=== PATIENT | female | born 1965 | race African-American/Black ===

== ENCOUNTER → 2020-03-20 12:55 | Outpatient (BNVA) | payer OTHER, SELFPAY | PROVIDERS: PCP Hospitalist; Referring Provider Hospitalist; Visit Provider Nurse Practitioner Family | DX: Z01.818 Encounter for other preprocedural examination (principal) | CPT/HCPCS: 99212 ==

== ENCOUNTER 2020-04-11 08:00 | Outpatient (RCR) | payer OTHER, SELFPAY ==
--- NOTE | 2020-03-06 15:22 | MHC.PT.EP ---
[facility] [place] Office [place] Office [place] Office [address] Michael Almonte [address] [phone] F: [phone] F: [phone] F: [phone] F: [phone] Physical Therapy Plan of Care Date of Evaluation: 03/06/20 Diagnosis: R Deltoid Strain Assessment: 54 y/o RHD female referred to PT with R deltoid strain. 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 Examination shows decreased R shoulder AROM/PROM, decreased R shoulder strength, increased tenderness to palpate r shoulder specially R supraspinatus and UT, and impaired postural awareness. S/s consistent with R shoulder impingement and ?RTC tear. Recommend PT 2x/week for 6 weeks to address impairments, implement HEP, and optimize functional mobility. POC to include R shoulder A/AA/PROM, STM/IASTM to R shoulder, ionto/TENS, scapular and RTC strengthening, and functional training. Frequency and Duration: The patient will be seen 2x/week for 6 weeks Short Term Goals: 3weeks: 1. Initiate HEP 2. Demonstrate R shoulder AROM: flexion 120 3. Demonstrate R shoulder apley ER to C4 Alf Goals: 6 weeks: 1. I with HEP and self management of sx 2. Pt will be able to perform grooming with B UE and pain < 3/10 3. Pt will be able to reach into overhead cabinet for dishware with pain < 3/19 Treatment Plan: Modalities to reduce pain, spasms and effusion. Manual therapy to restore motion and function. Therapeutic exercise to improve strength and flexibility. Neuromuscular re-education for posture and balance. Therapeutic activities to return to functional activities of daily living. Please sign and return to therapist. Thank you for your referral.
--- NOTE | 2020-03-26 11:59 | MHC.PT.OD ---
[facility] [place] Office [place] Office [place] Office [address] Michael Almonte [address] [phone] F: [phone] F: [phone] F: [phone] F: [phone] Physical Therapy Daily Note Diagnosis: Strain of right deltoid muscle, initial encounter. Notes: Would like eval for concern for right deltoid strain with no known cause would like eval of the shoulder and home exercise program as well. Date of script 02/08/2020 signed by Myesha Hernandez NP (Therapist concerned for presence of RTC tear) Date of Surgery: NA Date of Evaluation: 03/06/20 Treatments to Date: 5 Cancellations to Date: 0 No Shows to Date: 1 Authorized Visits: 12 Insurance End Date: 05/10/20 Precautions/ Contraindications:HTN, ?R RTC Tear Subjective: Use of OPI phone court interpreter #[id number] [place] Poor connection/communication w/ court interpreter line noted today. Pt expressed skin irritation with trial of taping last session, reports continued difficulty with elevation of R UE, (+) severe night pain in R shoulder, presence of posterior muscular neck pain. Pain Score: 7 Pain Location: R shoulder Objective Flowsheet: Tests & Measures FLEXIONAROM 70 (92 PROM) degrees ABDUCTION 60 (70 PROM) ER TO EAR (PROM 40), IR LA BUTTOCKS ( PROM 40) Exercises UBE reverse x 5min AAROM TABLE SLIDES SEATED X 10 SEC HOLD X 10R -AAROM TABLE SLIDES SCAPTION X 10 SEC HOLD X 5R- -AAROM HAND HELD ASSIST IN SUPINE X 10 SEC HOLD X 5R -PROM TO TOLERANCE R SHOULDER FLEXION -PENDULUMS X 4 MINUTES WITH CUES TO REDUCE ACTIVE SWINGING AND ENSURE MORE PASSIVE RELAXATION OF R SHOULDER DURING ACTIVITY -RIGHT UPPER TRAP STRETCH X 4R X 20 SEC HOLD -RIGHT LEVATOR SCAP STRETCH X 4R X 20 SEC HOLD SCAP RETRACTION WITH ARMS BY SIDE EDUCATION FOR USE OF PILLOW UNDER ARM TO EASE SUPPORT FROM R SHOULDER WHILE SITTING OR SLEEPING ICE FOR PAIN MANAGEMENT x 10-20 MINUTES PRN WITH LAYERING TO PROTECT SKIN EDUCATION RE: ANATOMY OF SHOULDER MUSCULATURE, NECK, CONCERN FOR MUSCLE INVOLVEMENT IN R UE WORSE WITH MOVEMENT CONCERN FOR MUSCLE INVOLVEMENT -STM TO RIGHT UPPER TRAP WHILE SEATED, NOTD TENDERNESS DISTAL SUPRASPINATUS, SUBSCAPULARIS, ANTERIOR GH, LATERAL SHOULDER/DELTOID REGION, PROXIMAL R CERVICAL SPINE Educated pt regarding use of ice for home x 10-15 minutes prn for pain relief. Modalities Assessment: 54 y/o RHD female referred to PT with diagnosis of R deltoid strain. 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 Examination shows decreased R shoulder AROM/PROM, decreased R shoulder strength, increased tenderness to palpate R shoulder specially R supraspinatus and UT. Impaired postural awareness. Pt has attended 5 sesision of PT thus far and has been instructed in gentle AAROM program with limited gaints. Concern for RTC tear is present. Pt has been educated to trial icing of R shoulder in effort to ease sx. She may benefit from referral to orthopedic and or MRI to assess potential for RTC pathology. POC to include R shoulder A/AA/PROM, STM/IASTM to R shoulder, scapular and RTC strengthening, and functional training. Pt is unable to lift her arm and has poor tolerance for PROM. Therapist is recommending pt continued therapy for 1-2 more weeks to address listed POC however pt has been educated re: findings of evaluation and concern for further assessment. She reports as of now her next scheduled follow up is in four months time. PT Plan: R shoulder AAROM>AROM, scapular and RTC strengthening, pain management No tape (+) skin irritation following first trial of use. Pt verbalized understanding of recommendation to trial low reps (no more than 5) 2-3x/daily for gentle aarom exercises trialed in clinic today (including table slides and supine aarom flexion). She was advised to hold therex if sharp or worsening symptoms were experienced. She was educated to refrain from heavy lifting with her arm and aide in elevation with aide of left extremity. She was encouraged to use ice prn 10-20 minutes to aide in sx relief. Discharge Today? Short Term Goals: 3weeks: 1. Initiate HEP (started) 2. Demonstrate R shoulder AROM: flexion 120 3. Follow up with referring provider due to concern for severe night pain, limited gains thus far in therapy (? ortho referral and or MRI) 3. 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 I with HEP and self management of sx 2. Pt will be able to perform grooming with B UE and pain < 3/10 3. Pt will be able to reach into overhead cabinet for dishware with pain < 3/19 Electronically signed by: Esther Weinstein, PT, DPT
== END 2020-06-07 09:52 | disposition other institution (70) ==
LOC: HO.PTWFD 08:00
PROVIDERS: Visit Provider Hospitalist
DX: S46.811D Strain of other muscles, fascia and tendons at shoulder and upper arm level, right arm, subsequent encounter (principal)
CPT/HCPCS: 97035; 97110; 97140; 97161; 97530

== ENCOUNTER 2020-05-31 09:42 | Day surgery (SDC) | payer OTHER, SELFPAY ==
--- NOTE | 2020-05-30 09:16 | HO.ANESPROP2 ---
Documented by User: Michelle Merrill 05/30/20 09:23 HPI - Anesthesia Eval Consult details Narrative: 54yo F for Colonoscopy PMFSH Past Medical History Medical History GERD (gastroesophageal reflux disease) HTN (hypertension) Family History Family History Father No problems noted. Father Cancer AD (Alzheimer's disease) Mother Breast cancer High blood pressure Maternal Aunt Stomach cancer Surgical History Surgical History History of hip replacement History of knee replacement Total knee replacement status Social History Social History Household Members: Children Alcohol intake: current Alcohol intake frequency: does not drink Smoking Status: Never smoker Use of substances other than those prescribed or required for medical reasons: No Advance Directives: Yes Advance Directives on File: Yes Advance Directives Date on File: 02/24/20 Meds Allergies Allergy/AdvReac Type Severity Reaction Status Date / Time No Known Allergies Allergy Verified 05/31/20 10:25 Home Medications Medication Instructions Recorded Confirmed Type acetaminophen 500 mg tablet 500 mg PO Q6H PRN 03/07/20 History clonidine HCl 0.1 mg tablet 0.1 mg PO BEDTIME 03/07/20 History lisinopril 20 1 tab PO DAILY 03/07/20 History mg-hydrochlorothiazide 25 mg tablet metoprolol tartrate 50 mg tablet 50 mg PO BID 03/07/20 History naproxen 500 mg tablet 500 mg PO BID 03/07/20 History Exam Exam Date and Time: May 30, 2020 0916 Pertinent Lab Results Pertinent Lab Results: Laboratory Tests 01/18/20 01/18/20 07:35 07:35 WBC 6.8 Hgb 11.8 L Hct 37.1 Plt Count 428 H Sodium 140 Potassium 4.5 Chloride 102 BUN 16 Creatinine 0.88 Assessment and Plan Assessment Anesthesia Assessment: Chart Reviewed Documented by User: Crystal Martinez 05/31/20 10:33 PMFSH Past Medical History Medical History GERD (gastroesophageal reflux disease) HTN (hypertension) Family History Family History Father No problems noted. Father Cancer AD (Alzheimer's disease) Mother Breast cancer High blood pressure Maternal Aunt Stomach cancer Family history of problems with anesthesia: No Surgical History Surgical History History of hip replacement History of knee replacement Total knee replacement status History of Problems with Anesthesia: No Social History Social History Household Members: Children Alcohol intake: current Alcohol intake frequency: does not drink Smoking Status: Never smoker Use of substances other than those prescribed or required for medical reasons: No Advance Directives: Yes Advance Directives on File: Yes Advance Directives Date on File: 02/24/20 Meds Allergies Allergy/AdvReac Type Severity Reaction Status Date / Time No Known Allergies Allergy Verified 05/31/20 10:25 Home Medications Medication Instructions Recorded Confirmed Type acetaminophen 500 mg tablet 500 mg PO Q6H PRN 03/07/20 History clonidine HCl 0.1 mg tablet 0.1 mg PO BEDTIME 03/07/20 History lisinopril 20 1 tab PO DAILY 03/07/20 History mg-hydrochlorothiazide 25 mg tablet metoprolol tartrate 50 mg tablet 50 mg PO BID 03/07/20 History naproxen 500 mg tablet 500 mg PO BID 03/07/20 History Exam Airway Mallampati Class: II TM Dist: >3cm Neck ROM: Full Heart: RRR Lungs: CTAB Assessment and Plan Assessment Anesthesia Assessment: Anesthesia Plan Discussed and Chart Reviewed Final Anesthetic Review NPO: Yes ASA Class: II Final Preanesthetic Review: No Changes in Pt Med Stat, Meds/Allgs Chart Reviewed, Consent Obtained/Reviewed and Anes Risks/Benef Reviewed Patient Risk: Low Procedure Risk: Low Anesthetic Plan Anesthetic Plan: MAC: Disposition: Standard PACU
[2020-05-31 10:26] VITALS: BP 132/72; PULSE 57; RESP 16; TEMP 36.2; O2SAT 99; BMI 32.2
--- NOTE | 2020-05-31 10:45 | MHC.SHP ---
Pre-Procedural Eval Section B Chief Complaint: screening Relevant Family History (Specify if Yes): No Relevant Social History: None Present Medications: see Short Stay Collaborative assessment Medical History: Significant History (GERD (gastroesophageal reflux disease) HTN (hypertension)) History of Previous Operations: Relevant previous surgery/procedure and date(s) (hip and knee replacement) Allergies: Allergies Allergy/AdvReac Type Severity Reaction Status Date / Time No Known Allergies Allergy Verified 05/31/20 10:25 Review of Systems Sugical H&P ROS: Negative: Constitution, Cardiovascular, Respiratory, Neurological, Psychiatric, Hem-Onc, Allergic/Immunologic, Gastrointestinal, Genitourinary, Musculoskeletal, Integumentary, Endocrine and Eyes/Ears/Nose/Throat Exam Surgical H&P Exam: Normal: HEENT, Normal: Heart, Normal: Lungs, Normal: Extremities, Normal: Abdomen, Normal: Skin and Normal: Neurological Plan Diagnosis/Plan: Unchanged I have reviewed the history and physical and performed a pertinent physical examination on my patient. No changes have occurred unless specified.
--- NOTE | 2020-05-31 10:46 | P.OP_ITS ---
Operative Note Operative Note Date of Service: 05/31/20 Narrative: Operative Information Procedure Description: Colonoscopy COLONOSCOPY Instrument: Olympus variable stiffness pediatric scope 190L Colonoscopy Monitoring: Vital signs and clinical assessment, continuous EKG monitoring, Pulse oximetry, Carbon Dioxide monitoring and blood pressure monitoring were done throughout the procedure. Colon withdrawal time was 9 minutes. Procedure: The patient was placed in the left lateral decubitis position and pre-procedure medications were administered. After a digital rectal examination of the ano-rectum, the video colonoscope was inserted into the rectum and advanced through the colon to the cecum/TI. The colonoscope was slowly withdrawn in a retrograde panoramic fashion and the colon mucosa was carefully examined including a retroflexed view of the rectum. Findings and interventions are described below. Procedure Difficulty:easy Findings: Terminal Ileum-normal Cecum:normal Ascending Colon: normal Transverse Colon -normal Descending Colon:normal Sigmoid Colon: mild to moderate diverticulosis Rectum: Retroflexion with small internal hemorrhoids, grade I, 9-10 mm sessile polyp removed with cold snare Anorectum - normal Colon preparation: [place] Bowel Preparation Scale Right colon; 3 Transverse colon: 3 Left colon; 3 (0 = Unprepared colon segment with mucosa not seen due to solid stool that cannot be cleared. 1 = Portion of mucosa of the colon segment seen, but other areas of the colon segment not well seen due to staining, residual stool and/or opaque liquid. 2 = Minor amount of residual staining, small fragments of stool and/or opaque liquid, but mucosa of colon segment seen well. 3 = Entire mucosa of colon segment seen well with no residual staining, small fragments of stool or opaque liquid) Impression and Post Procedure Diagnosis: polyp internal hemorrhoids diverticular disease Plan: High fiber diet leaflet Avoid straining at stool, epsom salts and sitz bath, anusol supps or cream prn Repeat Colonoscopy in 5 years if adenoma, 10 yrs if hyperplastic or earlier if clinically indicated Above findings were reviewed with the patient and relevant handouts were provided if indicated.
--- NOTE | 2020-05-31 10:46 | PM.OP ---
Brief Operative Note Date of Service: 05/31/20 Post-op diagnosis: same Procedure: see op note Surgeon: Wilfredo Chambers MD Anesthesia: MAC Estimated blood loss (mL): 0 Condition: stable Disposition: PACU
[2020-05-31] MEDS: Lactated Ringers 1,000 ML 100 ML IVCONT (10:47)
[2020-05-31 11:30] VITALS: BP 97/61; PULSE 78; RESP 16; TEMP 36.1; O2SAT 99
[2020-05-31 11:45] VITALS: BP 124/74; PULSE 53; RESP 17; TEMP 36.2; O2SAT 100
--- NOTE | 2020-05-31 12:13 | HO.POSTANES ---
Post Anesthesia Evaluation Post Anesthesia Evaluation Vital Signs: Vital Signs Temp Pulse Resp BP Pulse Ox 05/31/20 11:45 97.2 F 53 17 124/74 100 05/31/20 11:30 97.0 F 78 16 97/61 99 05/31/20 10:26 97.1 F 57 16 132/72 99 Anesthesia: General (tiva) Mental Status: Awake Pain Control: Satisfactory Nausea/Vomiting: None Hydration: Adequate Anesthesia-Related Issues: No Anes. Related Issues
== END 2020-05-31 12:20 | disposition home or self-care (01) ==
PROVIDERS: PCP Hospitalist; Visit Provider Internal Medicine Gastroenterology
PROC: 0DJD8ZZ Inspection of Lower Intestinal Tract, Via Natural or Artificial Opening Endoscopic (ICD-10-PCS; CPT 45378; principal; 2020-05-31 10:50)
DX: Z12.11 Encounter for screening for malignant neoplasm of colon (principal); K62.1 Rectal polyp; K57.30 Diverticulosis of large intestine without perforation or abscess without bleeding; K64.0 First degree hemorrhoids; K21.9 Gastro-esophageal reflux disease without esophagitis; I10 Essential (primary) hypertension; Z79.899 Other long term (current) drug therapy; Z80.3 Family history of malignant neoplasm of breast; Z96.651 Presence of right artificial knee joint; Z96.649 Presence of unspecified artificial hip joint
CPT/HCPCS: 45385; 88305

== ENCOUNTER 2020-06-12 12:54 | Outpatient (REF) | payer OTHER, SELFPAY ==
--- NOTE | 2020-06-12 | MM_ITS ---
EXAMINATION: MM SCREENING DIGITAL BREAST TOMOSYNTHESIS, BILATERAL CLINICAL INFORMATION: Screening. Asymptomatic. The lifetime risk of breast cancer based on the Tyrer-Cuzick Model is 18.7%. COMPARISON: Mammography: None TECHNIQUE: Digital breast tomosynthesis is performed in both the craniocaudal and mediolateral oblique views along with computer-aided detection (CAD). Synthesized 2D images are generated from the tomosynthesis. Additional right exaggerated craniocaudal view performed. FINDINGS: The breasts are almost entirely fatty (ACR BI-RADS breast composition Category a). There are no significant masses, abnormal calcifications, or other abnormalities. MM/MM tomosynthesis screening BI IMPRESSION: There are no significant changes from prior study. ASSESSMENT: BI-RADS 1: Negative RECOMMENDATION: Routine annual mammography screening. This patient's information was entered into a reminder system with a target due date for their next mammogram.
== END 2020-06-12 12:55 | disposition home or self-care (01) ==
LOC: HO.MAMMO 12:54
PROVIDERS: PCP Hospitalist; Visit Provider Hospitalist
DX: Z12.31 Encounter for screening mammogram for malignant neoplasm of breast (principal)
CPT/HCPCS: 77063; 77067

== ENCOUNTER → 2020-06-22 13:46 | Outpatient (BNVA) | payer OTHER, SELFPAY | PROVIDERS: PCP Hospitalist; Referring Provider Hospitalist; Visit Provider Nurse Practitioner Family ==

== ENCOUNTER 2020-08-01 11:34 | Outpatient (REF) | payer OTHER, SELFPAY ==
[2020-08-01 13:30] LABS: Hematocrit 39.6 % (37-47); Hemoglobin 12.9 g/dl (12.0-16.0); Mean Corpuscular HGB Conc 32.6 g/dl (31.0-35.0); Mean Corpuscular Volume 76.7 fL (80-98); Mean Platelet Volume 10.8 fL (9.4-12.3); Platelet Count 348 X10*3/uL (160-400); Red Blood Count 5.16 X10*6/uL (4.20-5.50); Red Cell Distribution Width 16.2 % (11.0-16.0); White Blood Count 7.2 X10*3/uL (4.8-10.8)
[2020-08-01 14:03] LABS: Alanine Aminotransferase 16 U/L (0-31); Albumin Level 4.1 g/dL (3.5-5.0); Alkaline Phosphatase 91 U/L (39-117); Anion Gap 14 (12-20); Aspartate Amino Transferase 17 U/L (5-31); Bilirubin Total 0.3 mg/dL (0.0-1.0); Blood Urea Nitrogen 21 mg/dL (9-16); Calcium 9.7 mg/dL (8.4-10.2); Carbon Dioxide 28 mmol/L (22-29); Chloride 101 mmol/L (96-108); Estimated Glomerular Filt Rate > 60; Glucose Random 91 mg/dL (60-115); Sodium 139 mmol/L (135-145); Total Protein 8.2 g/dL (6.5-8.0)
== END 2020-08-01 11:35 | disposition home or self-care (01) ==
LOC: HO.WFDLDS 11:34
PROVIDERS: Visit Provider Nurse Practitioner Family
DX: Z12.11 Encounter for screening for malignant neoplasm of colon (principal)
CPT/HCPCS: 36415; 80053; 85027

== ENCOUNTER 2021-02-19 08:12 | Outpatient (REF) | payer OTHER, SELFPAY ==
[2021-02-19 11:45] LABS: Anion Gap 12 (12-20); Blood Urea Nitrogen 13 mg/dL (9-16); Calcium 9.6 mg/dL (8.4-10.2); Carbon Dioxide 28 mmol/L (22-29); Chloride 104 mmol/L (96-108); Estimated Glomerular Filt Rate 55; Glucose Random 144 mg/dL (60-115); Potassium 3.6 mmol/L (3.3-5.1); Sodium 140 mmol/L (135-145)
== END 2021-02-19 08:13 | disposition home or self-care (01) ==
LOC: HO.WFDLDS 08:12
PROVIDERS: Visit Provider Hospitalist
DX: M54.40 Lumbago with sciatica, unspecified side (principal)
CPT/HCPCS: 36415; 80048

== ENCOUNTER 2021-07-09 15:37 | Outpatient (REF) | payer OTHER, SELFPAY ==
--- NOTE | ~2021-07-09 | MM_ITS ---
EXAMINATION: MM SCREENING DIGITAL BREAST TOMOSYNTHESIS, BILATERAL CLINICAL INFORMATION: Screening. Asymptomatic. The lifetime risk of breast cancer based on the Tyrer-Cuzick Model is 10%. COMPARISON: Mammography: 11/09/2020 (new baseline). TECHNIQUE: Digital breast tomosynthesis is performed in both the craniocaudal and mediolateral oblique views along with computer-aided detection (CAD). Synthesized 2D images are generated from the tomosynthesis. Additional left MLO view is provided. FINDINGS: The breasts are almost entirely fatty (ACR BI-RADS breast composition Category a). There are no significant masses, abnormal calcifications, or other abnormalities. Background stromal markings are similar to prior exam. No developing density or architectural abnormality. The axilla and skin contours are unremarkable. No significant changes. MM/MM tomosynthesis screening BI IMPRESSION: No mammographic evidence of malignancy. ASSESSMENT: BI-RADS 1: Negative RECOMMENDATION: Routine annual mammography screening. This patient's information was entered into a reminder system with a target due date for their next mammogram.
== END 2021-07-09 15:38 | disposition home or self-care (01) ==
LOC: HO.MAMMO 15:37
PROVIDERS: PCP Hospitalist; Visit Provider Hospitalist
DX: Z12.31 Encounter for screening mammogram for malignant neoplasm of breast (principal)
CPT/HCPCS: 77063; 77067

== ENCOUNTER 2021-10-01 10:43 | Outpatient (REF) | payer OTHER, SELFPAY ==
[2021-10-01 13:37] LABS: Anion Gap 14 (12-20); Blood Urea Nitrogen 20 mg/dL (9-16); Carbon Dioxide 26 mmol/L (22-29); Chloride 103 mmol/L (96-108); Estimated Glomerular Filt Rate > 60; Glucose Random 97 mg/dL (60-115); Potassium 3.8 mmol/L (3.3-5.1); Sodium 139 mmol/L (135-145)
== END 2021-10-01 10:44 | disposition home or self-care (01) ==
LOC: HO.WFDLDS 10:43
PROVIDERS: Visit Provider Hospitalist
DX: M54.40 Lumbago with sciatica, unspecified side (principal)
CPT/HCPCS: 36415; 80048

== ENCOUNTER 2021-12-10 10:00 | Outpatient (RCR) | payer OTHER, SELFPAY ==
[2021-12-06 08:46] VITALS: BP 122/80; PULSE 56; O2SAT 96
== END 2022-01-21 14:40 | disposition home or self-care (01) ==
LOC: HO.PTWFD 10:00
PROVIDERS: Visit Provider Hospitalist
DX: R42 Dizziness and giddiness (principal)
CPT/HCPCS: 95992; 97161; 97535

== ENCOUNTER 2022-09-30 10:09 | Outpatient (REF) | payer OTHER, SELFPAY ==
--- NOTE | ~2022-09-30 | MM_ITS ---
EXAMINATION: MM SCREENING DIGITAL BREAST TOMOSYNTHESIS, BILATERAL CLINICAL INFORMATION: Screening. Asymptomatic. The lifetime risk of breast cancer based on the Tyrer-Cuzick Model is 12%. COMPARISON: Mammography: 07/09/2021, 06/12/2020 (new baseline) TECHNIQUE: Digital breast tomosynthesis is performed in both the craniocaudal and mediolateral oblique views along with computer-aided detection (CAD). Synthesized 2D images are generated from the tomosynthesis. FINDINGS: The breasts are almost entirely fatty (ACR BI-RADS breast composition Category a). Background stromal markings are normal. No developing density or architectural abnormality. There are no significant masses, abnormal calcifications, or other abnormalities. The axilla and skin contours are unremarkable. MM/MM tomosynthesis screening BI IMPRESSION: No mammographic evidence of malignancy. ASSESSMENT: BI-RADS 1: Negative RECOMMENDATION: Routine annual mammography screening. This patient's information was entered into a reminder system with a target due date for their next mammogram.
== END 2022-09-30 10:10 | disposition home or self-care (01) ==
LOC: HO.MAMMO 10:09
PROVIDERS: PCP Hospitalist; Visit Provider Hospitalist
DX: Z12.31 Encounter for screening mammogram for malignant neoplasm of breast (principal)
CPT/HCPCS: 77063; 77067

== ENCOUNTER → 2022-10-01 09:53 | Outpatient (BNVA) | payer OTHER, SELFPAY | PROVIDERS: PCP Hospitalist; Visit Provider Neurological Surgery | DX: M53.3 Sacrococcygeal disorders, not elsewhere classified (principal) | CPT/HCPCS: 99202 ==

== ENCOUNTER → 2022-10-31 12:40 | Outpatient (BNVA) | payer OTHER, SELFPAY | PROVIDERS: PCP Hospitalist; Visit Provider Physician Assistant | DX: M53.3 Sacrococcygeal disorders, not elsewhere classified (principal) | CPT/HCPCS: 99212 ==

== ENCOUNTER 2023-01-05 08:21 | Day surgery (SDC) | payer OTHER, SELFPAY ==
--- NOTE | 2022-12-23 | ECG_ITS ---
Test Reason : htn Blood Pressure : / mmHG Vent. Rate : 052 BPM Atrial Rate : 052 BPM P-R Int : 180 ms QRS Dur : 090 ms QT Int : 454 ms P-R-T Axes : 056 015 051 degrees QTc Int : 422 ms Sinus bradycardia Otherwise normal ECG No previous ECGs available Referred By: Michelle Merrill Electronically Signed By:CLARISA CANO
[2022-12-23 12:17] VITALS: BP 143/79; PULSE 54; RESP 18; O2SAT 96; BMI 33.4
--- NOTE | 2022-12-23 12:39 | HO.ANESPROP2 ---
Documented by User: Michelle Merrill NP 12/24/22 13:52 HPI - Anesthesia Eval Consult details Narrative: 57yo F for Left Sacroiliac Joint Fusion, 01/05/23 No recent illness No CP/SOB with >4 mets GERD - well controlled on ppi PMFSH Active Problems Active Problems: All Active Problems (Updated 12/23/22 @ 12:12 by Clemencia Schuler RN) Strain of right deltoid muscle (Acute) GERD without esophagitis (Acute) Osteoarthritis (arthritis due to wear and tear of joints) (Acute) Hypertension, essential (Acute) Screen for colon cancer (Acute) Hypoglycemia (Acute) Anemia (Acute) Bilateral low back pain with sciatica (Acute) BMI 34.0-34.9,adult (Acute) Open wound of skin (Acute) History of COVID-19 (Acute) Sleep-wake 24 hour cycle disruption (Acute) Dizziness (Acute) Normal physical exam (Acute) Obesity (BMI 30.0-34.9) (Acute) SI (sacroiliac) joint dysfunction (Acute) Past Medical History Medical History (Updated 12/23/22 @ 12:12 by Clemencia Schuler RN) Anemia Depression GERD (gastroesophageal reflux disease) History of COVID-19 HTN (hypertension) Low back pain Obesity Osteoarthritis Family History Family History Father No problems noted. Father Cancer AD (Alzheimer's disease) Mother Breast cancer High blood pressure Maternal Aunt Stomach cancer Family history of problems with anesthesia: No Surgical History Surgical History (Updated 12/23/22 @ 12:09 by Clemencia Schuler RN) H/O colonoscopy History of hip replacement History of knee replacement Hx of section History of Problems with Anesthesia: No Social History Social History Household Members: Children and Other Housing: House (2ND FLOOR) Housing Other:: 2nd floor-2 family house Are you a primary director medicare sales to a significant other at home: No Do you presently have visiting nurse or other home services: No Alcohol intake: current Alcohol intake frequency: holidays/special occasions only Patient Tobacco Use Status: Never used Tobacco e-Cigarette/Vaping Use: Never Used Second Hand Smoke Exposure: No Use of substances other than those prescribed or required for medical reasons: No Have you been hit, kicked, punched, or otherwise hurt by someone within the past year? If so, by whom?: No Are you DNR?: No Advance Directives: Yes Advance Directives Information Provided: Yes Advance Directives on File: Yes Advance Directives Date on File: 02/24/20 Recently lost weight without trying: No Eating poorly because of decreased appetite: No Nutrition Risks: No Nutritional Risk FDLMP: N/A Poor oral hygiene: No (has one crown right side) service: No Current occupational status: disabled Current occupational exposures/hazards: No Cognitive needs: No Hearing needs: No Vision needs: No Meds Allergies Allergy/AdvReac Type Severity Reaction Status Date / Time No Known Allergies Allergy Verified 07/17/22 13:32 Home Medications Medication Instructions Recorded Confirmed Last Taken Type celecoxib 100 mg capsule (Celebrex) 100 mg PO BID PRN Pain 12/23/22 12/23/22 Unknown History gabapentin 600 mg tablet 600 mg PO BEDTIME 12/23/22 12/23/22 Unknown History ibuprofen 200 mg tablet 400 mg PO Q6H PRN Pain 12/23/22 12/23/22 Unknown History lisinopril 20 1 tab PO BEDTIME 12/23/22 12/23/22 Unknown History mg-hydrochlorothiazide 25 mg tablet Exam Exam Date and Time: December 23, 2022 1240 Height,Weight and Vital Signs: Height 5 ft Weight 77.564 kg Last Vital Signs Pulse 54 12/23/22 12:17 Resp 18 12/23/22 12:17 BP 143/79 H 12/23/22 12:17 Pulse Ox 96 12/23/22 12:17 O2 Del Method Room Air 12/23/22 12:17 Pertinent Lab Results Pertinent Lab Results: Lab Results 12/23/22 12/23/22 Range/Units 13:35 13:35 WBC 6.6 (4.8-10.8) X10*3/uL RBC 5.27 (4.20-5.50) X10*6/uL Hgb 14.1 (12.0-16.0) g/dl Hct 41.5 (37.0-47.0) % MCV 78.7 L (80.0-98.0) fL MCH 26.8 L (27.0-33.0) pg MCHC 34.0 (31.0-35.0) g/dl RDW 14.0 (11.0-16.0) % Plt Count 289 (160-400) X10*3/uL MPV 11.0 (9.4-12.3) fL Absolute Nucleated RBC 0.000 (0.0-0.012) X10*3/uL Nucleated RBC % (auto) 0.0 (0.0-0.2) /100WBC Sodium 141 (135-145) mmol/L Potassium 3.7 (3.3-5.1) mmol/L Chloride 105 (96-108) mmol/L Carbon Dioxide 26 (22-29) mmol/L Anion Gap 14 (12-20) BUN 14 (9-16) mg/dL Creatinine 1.04 (0.5-1.4) mg/dL Estim Creat Clear Calc 53.6 Estimated GFR 54 Random Glucose 98 (60-115) mg/dL Calcium 9.7 (8.4-10.2) mg/dL Narrative Narrative: EKG 12/2022 Vent. Rate : 052 BPM ? ? Atrial Rate : 052 BPM ?? P-R Int : 180 ms? QRS Dur : 090 ms ? ? QT Int : 454 ms ? ? ? P-R-T Axes : 056 015 051 degrees ?? QTc Int : 422 ms ? Sinus bradycardia Otherwise normal ECG No previous ECGs available Airway Mallampati Class: II TM Dist: >3cm Neck ROM: Full Loose/Missing/Broken Teeth: No (crowned molar) Heart: RRR Lungs: CTAB Assessment and Plan Assessment Anesthesia Assessment: Anesthesia Plan Discussed and PAT Visit Final Anesthetic Review Family History of Problems with Anesthesia: No History of Problems with Anesthesia: No Documented by User: Shahriar Ch MD 01/05/23 08:51 [facility] Past Medical History Medical History (Updated 12/23/22 @ 12:12 by Clemencia Schuler RN) Anemia Depression GERD (gastroesophageal reflux disease) History of COVID-19 HTN (hypertension) Low back pain Obesity Osteoarthritis Family History Family History Father No problems noted. Father Cancer AD (Alzheimer's disease) Mother Breast cancer High blood pressure Maternal Aunt Stomach cancer Surgical History Surgical History (Updated 12/23/22 @ 12:09 by Clemencia Schuler RN) H/O colonoscopy History of hip replacement History of knee replacement Hx of section Social History Social History Household Members: Children and Other Housing: House (2ND FLOOR) Housing Other:: 2nd floor-2 family house Are you a primary director medicare sales to a significant other at home: No Do you presently have visiting nurse or other home services: No Alcohol intake: current Alcohol intake frequency: holidays/special occasions only Patient Tobacco Use Status: Never used Tobacco e-Cigarette/Vaping Use: Never Used Second Hand Smoke Exposure: No Use of substances other than those prescribed or required for medical reasons: No Have you been hit, kicked, punched, or otherwise hurt by someone within the past year? If so, by whom?: No Are you DNR?: No Advance Directives: Yes Advance Directives Information Provided: Yes Advance Directives on File: Yes Advance Directives Date on File: 02/24/20 Recently lost weight without trying: No Eating poorly because of decreased appetite: No Nutrition Risks: No Nutritional Risk FDLMP: N/A Poor oral hygiene: No (has one crown right side) service: No Current occupational status: disabled Current occupational exposures/hazards: No Cognitive needs: No Hearing needs: No Vision needs: No Meds Allergies Allergy/AdvReac Type Severity Reaction Status Date / Time No Known Allergies Allergy Verified 07/17/22 13:32 Home Medications Medication Instructions Recorded Confirmed Last Taken Type celecoxib 100 mg capsule (Celebrex) 100 mg PO BID PRN Pain 12/23/22 12/23/22 Unknown History gabapentin 600 mg tablet 600 mg PO BEDTIME 12/23/22 12/23/22 Unknown History ibuprofen 200 mg tablet 400 mg PO Q6H PRN Pain 12/23/22 12/23/22 Unknown History lisinopril 20 1 tab PO BEDTIME 12/23/22 12/23/22 Unknown History mg-hydrochlorothiazide 25 mg tablet Assessment and Plan Final Anesthetic Review ASA Class: III Final Preanesthetic Review: No Changes in Pt Med Stat, Meds/Allgs Chart Reviewed, Consent Obtained/Reviewed and Anes Risks/Benef Reviewed Patient Risk: Intermediate Procedure Risk: Intermediate Anesthetic Plan Anesthetic Plan: GA and Agree w/ Assess. and Plan Disposition: Standard PACU
[2022-12-23 14:01] LABS: Hematocrit 41.5 % (37.0-47.0); Hemoglobin 14.1 g/dl (12.0-16.0); Mean Corpuscular Hemoglobin 26.8 pg (27.0-33.0); Mean Corpuscular Volume 78.7 fL (80.0-98.0); Platelet Count 289 X10*3/uL (160-400); Red Blood Count 5.27 X10*6/uL (4.20-5.50); White Blood Count 6.6 X10*3/uL (4.8-10.8)
[2022-12-23 14:27] LABS: Anion Gap 14 (12-20); Blood Urea Nitrogen 14 mg/dL (9-16); Calcium 9.7 mg/dL (8.4-10.2); Carbon Dioxide 26 mmol/L (22-29); Chloride 105 mmol/L (96-108); Creatinine Clr Calc Pharmacy 53.6; Estimated Glomerular Filt Rate 54; Glucose Random 98 mg/dL (60-115); Potassium 3.7 mmol/L (3.3-5.1); Sodium 141 mmol/L (135-145)
[2023-01-05] VITALS (8 sets, daily range): BP systolic 119–144; BP diastolic 67–84; PULSE 50–68; RESP 14–16; TEMP 36.1–36.2; O2SAT 95–100
--- NOTE | ~2023-01-05 | FL_ITS ---
EXAMINATION: XR FLUOROSCOPY WITH IMAGES CLINICAL INFORMATION: Sacroiliac joint effusion, left. COMPARISON: None available. TECHNIQUE: Fluoroscopy Supervised By: Dr. Sg Rene. Fluoroscopy Time: 4.8 minutes. Cumulative Dose: 58.1 mGy. DAP: 15.8 Gycm2. Images: 4. FINDINGS: AP views of the lower lumbar spine and are shown pelvis. Single lateral view of the sacrum. Question rectangular density projecting over the proximal anterior S2 vertebrae seen on the lateral view. There may be degenerative changes of the lower lumbar spine. There is a hip replacement. FL/FL guidance in OR IMPRESSION: Intraoperative fluoroscopy guidance.
--- NOTE | 2023-01-05 07:04 | MHC.SHP ---
Pre-Procedural Eval Section A Date of Service: 01/05/23 The patient is an INPATIENT: No Changes since office visit: No Cold of Flu in the past 2 weeks, No New Medical Problems, No Changes in Medication and No Patient answered all questions Section B Chief Complaint: Sacrococcygeal disorders, not elsewhere classified Allergies: Allergies Allergy/AdvReac Type Severity Reaction Status Date / Time No Known Allergies Allergy Verified 07/17/22 13:32 Review of Systems Sugical H&P ROS: Negative: Constitution, Cardiovascular, Respiratory, Neurological, Psychiatric, Hem-Onc, Allergic/Immunologic, Gastrointestinal, Genitourinary, Musculoskeletal, Integumentary, Endocrine and Eyes/Ears/Nose/Throat Exam Surgical H&P Exam: Not Evaluated: HEENT, Not Evaluated: Heart, Not Evaluated: Lungs, Not Evaluated: Extremities, Not Evaluated: Abdomen, Not Evaluated: Skin and Not Evaluated: Neurological Plan Diagnosis/Plan: Unchanged I have reviewed the history and physical and performed a pertinent physical examination on my patient. No changes have occurred unless specified. left SI joint fusion Time Spent With Patient Time: Total time managing care of this patient today _10___ minutes.
[2023-01-05] MEDS: methocarbamoL 750 MG TABLET PO (09:39)
[2023-01-05] MEDS: Gabapentin 300 MG CAPSULE PO (09:39)
[2023-01-05] MEDS: Lactated Ringers 1,000 ML 100 ML IVCONT (09:43)
--- NOTE | 2023-01-05 12:19 | P.DS_ITS ---
DS: Providers Provider Date of Service: 01/05/23 Date of discharge: 01/05/23 Primary care physician: Myesha Hernandez NP Admitting clinician: Sg Rene DS: Diagnosis Discharge Diagnosis (1) SI (sacroiliac) joint dysfunction: Status: Acute DS: Summary Time Spent with Patient Time attestation: Total time managing care of this patient today ____ minutes. Discharge coordination time: Less than 30 minutes Quality: Safe Use of Opioids Does Pt have an Active Cancer Diagnosis on the Problem List?: No Quality: Stroke Does the patient have a stroke diagnosis?: No Physical Exam Vital Signs: Vital Signs: Last Vital Signs Temp 97.2 F 01/05/23 09:31 Pulse 50 01/05/23 09:31 Resp 16 01/05/23 09:31 BP 144/84 H 01/05/23 09:31 Pulse Ox 98 01/05/23 09:31 O2 Del Method Room Air 01/05/23 09:31 BMI result Body Mass Index 33.4 Discharge Plan Discharge Patient Disposition: Home, Self-Care Referrals: Myesha Hernandez NP [Primary Care Provider] - 1 Week Discharge Medications: New oxycodone 5 mg tablet 5 mg PO Q8H PRN (Reason: pain) Qty: 20 0RF Rx Instructions: Partial Fill upon patient request. docusate sodium [Colace] 100 mg capsule 100 mg PO BID Qty: 20 0RF Continued (DME) blood pressure test kit-medium Kit See Rx Instructions .ROUTE .MEDSUPPLY Qty: 1 0RF Rx Instructions: As directed omeprazole 20 mg capsule,delayed release(DR/EC) 20 mg PO QAM Qty: 90 1RF metoprolol tartrate 50 mg tablet 50 mg PO BID Qty: 180 1RF clonidine HCl 0.1 mg tablet 0.1 mg PO BEDTIME Qty: 90 1RF gabapentin 600 mg tablet 600 mg PO BEDTIME Rx Instructions: take one in the afternoon or morning and then two at bedtime. celecoxib [Celebrex] 100 mg capsule 100 mg PO BID PRN (Reason: Pain) Rx Instructions: short term therapy ibuprofen 200 mg Tablet 400 mg PO Q6H PRN (Reason: Pain) lisinopril-hydrochlorothiazide 20-25 mg tablet 1 tab PO BEDTIME meclizine 25 mg tablet 25 mg PO TID PRN (Reason: dizziness) Qty: 90 1RF trazodone 50 mg tablet 100 mg PO BEDTIME Qty: 60 3RF Discontinued (DME) sacroiliac belt Kit See Rx Instructions .MEDSUPPLY Qty: 1 0RF Rx Instructions: As directed (DME) back brace Misc See Rx Instructions .Route Qty: 1 1RF Rx Instructions: As directed Discharge Orders: Discharge Order (Routine); Ordered 01/05/23 Ordered By: Juan Santiago Diet: Advance to usual diet Activity on Discharge: As tolerated Activity Restrictions/Additional Instructions: After your SI joint fusion surgery we ask you to observe the following restrict ions/guidelines: Activity: It is normal to feel some discomfort as you increase your activity, but that will improve with time. We ask you avoid heavy lifting or acitivities that cause pain. As a general rule, 8lbs is a safe limit for lifting right after surgery. We ask you to stay off your [] leg after surgery in order to help the SI joint fuse. Please use crutches or walker. You may return to driving when you are off narcotics (such as vicodin, oxycodone, dilaudid, etc), and you are back to normal functional capacity. If you have any concerns please check with office before driving. Return to work is specific to each patient and each surgery, so please speak with your doctor/PA at first follow up. Please bring paperwork such as FMLA at that time if you need it filled out. Follow up: Please call the office, , after surgery to arrange a 3 week follow up for wound check. Wound Care: Your wound was closed with glue, there are no sutures to remove. You may shower on post op day # 1. We ask that you do not let the water soak the wound. If it does get wet, just towel dry lightly. Please do not scrub your incision or place any type of chemical/ointment on the wound. No tub baths, pools or jacuzzis for one month. If you have any leaking or redness from your wound, or fevers, please call office Medications: It is best to use a combination of tylenol and motrin around the clock, and use small amounts of oxycodone as needed. We will give you a short supply of narcotics after surgery (usually one weeks worth). If you need more please call the office but do not use more than prescribed. You will need to give our office 48 hours notice if you need narcotics refilled and we do not fill narcotics on weekends or evenings. If you are on a narcotic, it is a good idea to take a stool softener such as colace or senna to avoid constipation If you take blood thinner such as aspirin, Plavix, Coumadin, Effient, Eliquis etc for conditions such as Afib, DVT, Pulmonary embolus, coronary disease, stents etc please speak with your surgeon about specific details as to when you can resume these medications. You can resume NSAIDs on post op day 1 (eg: Motrin, Naproxen, etc).
--- NOTE | 2023-01-05 12:25 | PM.DS ---
DS: Providers Provider Date of Service: 01/05/23 Primary care physician: Myesha Hernandez NP DS: Diagnosis Discharge Diagnosis (1) SI (sacroiliac) joint dysfunction: Status: Acute DS: Summary Time Spent with Patient Time attestation: Total time managing care of this patient today ____ minutes. Discharge coordination time: Less than 30 minutes Quality: Safe Use of Opioids Does Pt have an Active Cancer Diagnosis on the Problem List?: No Quality: Stroke Does the patient have a stroke diagnosis?: No Physical Exam Vital Signs: Vital Signs: Last Vital Signs Temp 97.2 F 01/05/23 09:31 Pulse 50 01/05/23 09:31 Resp 16 01/05/23 09:31 BP 144/84 H 01/05/23 09:31 Pulse Ox 98 01/05/23 09:31 O2 Del Method Room Air 01/05/23 09:31 BMI result Body Mass Index 33.4 Discharge Plan Discharge Patient Disposition: Home, Self-Care Referrals: Myesha Hernandez NP [Primary Care Provider] - 1 Week Discharge Medications: New oxycodone 5 mg tablet 5 mg PO Q8H PRN (Reason: pain) Qty: 20 0RF Rx Instructions: Partial Fill upon patient request. docusate sodium [Colace] 100 mg capsule 100 mg PO BID Qty: 20 0RF Continued (DME) blood pressure test kit-medium Kit See Rx Instructions .ROUTE .MEDSUPPLY Qty: 1 0RF Rx Instructions: As directed omeprazole 20 mg capsule,delayed release(DR/EC) 20 mg PO QAM Qty: 90 1RF metoprolol tartrate 50 mg tablet 50 mg PO BID Qty: 180 1RF clonidine HCl 0.1 mg tablet 0.1 mg PO BEDTIME Qty: 90 1RF gabapentin 600 mg tablet 600 mg PO BEDTIME Rx Instructions: take one in the afternoon or morning and then two at bedtime. celecoxib [Celebrex] 100 mg capsule 100 mg PO BID PRN (Reason: Pain) Rx Instructions: short term therapy ibuprofen 200 mg Tablet 400 mg PO Q6H PRN (Reason: Pain) lisinopril-hydrochlorothiazide 20-25 mg tablet 1 tab PO BEDTIME meclizine 25 mg tablet 25 mg PO TID PRN (Reason: dizziness) Qty: 90 1RF trazodone 50 mg tablet 100 mg PO BEDTIME Qty: 60 3RF Discontinued (DME) sacroiliac belt Kit See Rx Instructions .MEDSUPPLY Qty: 1 0RF Rx Instructions: As directed (DME) back brace Misc See Rx Instructions .Route Qty: 1 1RF Rx Instructions: As directed Discharge Orders: Discharge Order (Routine); Ordered 01/05/23 Ordered By: Juan Santiago Diet: Advance to usual diet Activity on Discharge: As tolerated Activity Restrictions/Additional Instructions: After your SI joint fusion surgery we ask you to observe the following restrictions/guidelines: Activity: It is normal to feel some discomfort as you increase your activity, but that will improve with time. We ask you avoid heavy lifting or acitivities that cause pain. As a general rule, 8lbs is a safe limit for lifting right after surgery. We ask you to stay off your [] leg after surgery in order to help the SI joint fuse. Please use crutches or walker. You may return to driving when you are off narcotics (such as vicodin, oxycodone, dilaudid, etc), and you are back to normal functional capacity. If you have any concerns please check with office before driving. Return to work is specific to each patient and each surgery, so please speak with your doctor/PA at first follow up. Please bring paperwork such as FMLA at that time if you need it filled out. Follow up: Please call the office, , after surgery to arrange a 3 week follow up for wound check. Wound Care: Your wound was closed with glue, there are no sutures to remove. You may shower on post op day # 1. We ask that you do not let the water soak the wound. If it does get wet, just towel dry lightly. Please do not scrub your incision or place any type of chemical/ointment on the wound. No tub baths, pools or jacuzzis for one month. If you have any leaking or redness from your wound, or fevers, please call office Medications: It is best to use a combination of tylenol and motrin around the clock, and use small amounts of oxycodone as needed. We will give you a short supply of narcotics after surgery (usually one weeks worth). If you need more please call the office but do not use more than prescribed. You will need to give our office 48 hours notice if you need narcotics refilled and we do not fill narcotics on weekends or evenings. If you are on a narcotic, it is a good idea to take a stool softener such as colace or senna to avoid constipation If you take blood thinner such as aspirin, Plavix, Coumadin, Effient, Eliquis etc for conditions such as Afib, DVT, Pulmonary embolus, coronary disease, stents etc please speak with your surgeon about specific details as to when you can resume these medications. You can resume NSAIDs on post op day 1 (eg: Motrin, Naproxen, etc).
--- NOTE | 2023-01-05 12:33 | W.PM.OPN ---
Operative Note Operative Note Date of Service: 01/05/23 Narrative: Preoperative diagnosis: left sacroiliac joint dysfunction Postoperative diagnosis: Same Operative procedure: left sacroiliac joint fusion with 1 allograft implant Surgeon: Sg Rene MD, PhD Community Outreach Coordinator: Juan Santiago PA-C Anesthesia: General Description of procedure: The patient is suffering from left SI joint dysfunction refractory to nonoperative management. The patient has tried and failed all forms of conservative manage med except for an excellent short-term response to a sacroiliac joint injection. The sacroiliac joint was confirmed to be the pain generator after repeated pain blocks. The patient was offered surgical treatment with fixation and arthrodesis of the SI joint. The patient was brought to the operating room and endotracheally intubated. The patient was turned in a prone position on Erich spine table. Prepping and draping was done followed by a time-out. A C-arm was alternately positioned for lateral, oblique oblique and pelvic inlet and outlet projections througout the procedure. Skin markings were made for the anticipated position of the implant. A 2.5 cm longitudinal skin incision was made. A guide pin was inserted in an outlet oblique image for guidance follow-up insertion of dilator and working cannula. This was secured by placing an anchor pin into the ilium. Consideration was taken to cut channels utilizing a series of drills for decortication and internal fixation device placement. The implant was inserted such that it passed through the ilium, across the sacroiliac joint and into the sacrum, thus transfixing the sacroiliac joint. Proper positioning was confirmed on lateral fluoroscopy. The implant was packed with of the longus bone collected from remain of the sacrum and ilium. Additional graft material was inserted into the channel void following the implant. The instruments were withdrawn. Upon completion, final images were obtained that showed a satisfactory position of the implant. Hemostasis was done. The incision was closed with an 0 Vicryl to fashion a 3-0 Vicryl subdermal layer after injecting Marcaine. Dermabond was used to approximate the surgeon. All sponge and needle counts were correct. Patient was extubated and transported in a stable condition to recovery room. This procedure was done with the aid of a physician registered dental assistant who assisted in the interpretation of the multiple x-rays done during the procedure and closure of the incision. Estimated blood loss: 15 mL Complications: None Disposition: Discharge to home
[2023-01-05] MEDS: ondansetron HCL 4 MG/2 ML VIAL IVPUSH (13:19)
== END 2023-01-05 14:40 | disposition home or self-care (01) ==
PROVIDERS: Nurse Practitioner; PCP Hospitalist; Visit Provider Neurological Surgery
PROC: (CPT 27279; principal; 2023-01-05 10:40)
DX: M53.3 Sacrococcygeal disorders, not elsewhere classified (principal); M54.50 Low back pain, unspecified; D64.9 Anemia, unspecified; I10 Essential (primary) hypertension; F32.A Depression, unspecified; M19.90 Unspecified osteoarthritis, unspecified site; K21.9 Gastro-esophageal reflux disease without esophagitis; E66.9 Obesity, unspecified; Z68.34 Body mass index [BMI] 34.0-34.9, adult; Z79.1 Long term (current) use of non-steroidal anti-inflammatories (NSAID); Z79.899 Other long term (current) drug therapy; Z96.653 Presence of artificial knee joint, bilateral; Z96.641 Presence of right artificial hip joint; Z86.16 Personal history of COVID-19
CPT/HCPCS: 27279; 36415; 80048; 85027; 93005; C1713; J0131; J0690; J1100; J1885; J2250; J2371; J2405; J3010; L8699

== ENCOUNTER → 2023-01-05 08:21 | Outpatient (BNV) | payer OTHER, SELFPAY | PROVIDERS: PCP Hospitalist; Visit Provider Physician Assistant | DX: M53.3 Sacrococcygeal disorders, not elsewhere classified (principal) | CPT/HCPCS: 20930; 22558; 22612; 22840; 22853; 27279; 63056 ==

== ENCOUNTER 2023-01-27 12:47 | Outpatient (AMB) | payer OTHER, SELFPAY ==
--- NOTE | 2023-01-27 13:01 | A.SPINEOV_ITS ---
Intake Intake Visit Reasons: 1st post op Intake Note: Mrs. Palma Nichols is here today for her 1st post-op visit. Nuclear Medicine Specialist Required: No Allergies No Known Allergies Allergy (Verified 07/17/22 13:32) Assessment & Plan Assessment & Plan (1) S/P fusion of sacroiliac joint: Code(s): Z98.1 - Arthrodesis status Plan Ledy is a 57-year-old female who comes in today for 1st postoperative visit. She is s/p left SI joint fusion on 01/05/23. She states that overall she is doing well and she is happy with her surgery. She reports that she has no pain when sitting down/laying down is able to sleep well at night. She also reports that she has been able to accomplish a large majority for ADLs, including cooking, cleaning, and doing laundry. She does state that she has been attempting to ambulate on her own but usually can only walk for about 15 minutes until she feels like she has significant hip/low back pain which causes her to sit back down to obtain relief. She has been ambulating with the use a walker, but states she would like to be in using a cane. She reports good relief of her pain with ibuprofen, but states she has not been utilizing Tylenol. She was strongly encouraged to begin using Tylenol 3 times daily at 500 mg each dose, in order to build up pain control. She was encouraged to use the ibuprofen more sparingly so as to avoid a GI bleed or ulcer. On exam the patient is able to rise from a seated position with the aid of her walker and is able to walk fairly well although does balance herself with a walker walking. She has full sensation throughout her upper and lower extremities, but does endorse some left-sided numbness/weakness in the bottom of her foot which she states she had since she was preoperative. Her incision site on the posterior left side is well healed, clean, dry, without drainage. At this time would like Ledy to follow up with our office 6 weeks and obtain a set of pelvic x-rays prior to her 2nd postoperative visit so that we can review the x-rays and instrumentation. Jose Rene MD,PhD [facility] Orders: Orders XR pelvis min 3V 10/03/23 Z98.1 - Arthrodesis status Coding Level of Care Code Global (74542) Diagnoses S/P fusion of sacroiliac joint Z98.1
== END 2023-01-27 13:15 | disposition home or self-care (01) ==
PROVIDERS: PCP Hospitalist; Visit Provider Physician Assistant
DX: Z98.1 Arthrodesis status (principal)
CPT/HCPCS: 99024

== ENCOUNTER → 2023-01-27 12:47 | Outpatient (BNVA) | payer OTHER, SELFPAY | PROVIDERS: PCP Hospitalist; Visit Provider Physician Assistant ==

== ENCOUNTER 2023-02-10 10:26 | Outpatient (REF) | payer OTHER, SELFPAY | END 2023-02-10 10:27 | disposition home or self-care (01) | LOC: HO.HOSX 10:26 | PROVIDERS: Visit Provider Physician Assistant | DX: Z13.89 Encounter for screening for other disorder (principal) ==

== ENCOUNTER 2023-03-11 11:45 | Outpatient (REF) | payer OTHER, SELFPAY ==
--- NOTE | ~2023-03-11 | XR_ITS ---
EXAMINATION: XR PELVIS CLINICAL INFORMATION: Arthrodesis status COMPARISON: None available. TECHNIQUE: AP view of the pelvis. FINDINGS: The patient is status post right total hip replacement. No fracture. Alignment is anatomic. Lucency inferior to the inferior aspect of the acetabular component is of doubtful clinical significance. Comparison to prior radiographs is suggested. There is mild degenerative change of the sacroiliac joints with 2.1 x 1.5 cm sclerotic focus along the sacral side of the left sacroiliac joint. The pubic symphysis are normal. The calcifications in the pelvis which include vascular and probable small phleboliths. There are degenerative changes in the lower lumbar spine. XR/XR pelvis 1-2V IMPRESSION: 1. Status post right total hip replacement without evidence of fracture. 2. Lucency inferior to the inferior aspect of the acetabular component is noted. Comparison to prior radiographs is suggested. 3. 2.1 x 1.5 cm sclerotic focus along the sacral side of the left sacroiliac joint. Comparison to prior radiographs is suggested.
== END 2023-03-11 11:46 | disposition home or self-care (01) ==
LOC: HO.HOSX 11:45
PROVIDERS: Visit Provider Physician Assistant
DX: M54.50 Low back pain, unspecified (principal); Z98.1 Arthrodesis status
CPT/HCPCS: 72170

== ENCOUNTER 2023-03-11 12:41 | Outpatient (AMB) | payer OTHER, SELFPAY ==
--- NOTE | 2023-03-11 13:03 | A.SPINEOV_ITS ---
Intake Intake Visit Reasons: 2nd post op with xrays Intake Note: Ms. Palma Nichols is here today for her 2nd post-op. Neuropsychiatric Aide Required: Yes Allergies No Known Allergies Allergy (Verified 07/17/22 13:32) Assessment & Plan Assessment & Plan (1) Low back pain: Code(s): M54.50 - Low back pain, unspecified Plan Procedure: Left SI joint fusion Ledy comes in today for her 2nd postoperative visit. She reports she is very satisfied with the surgery and states that her left leg / hip feels much better than it did pre-operatively. She reports she is up walking around and completing the majority of her ADLs. She does not have trouble lifting up her left leg or getting out of car any longer. Unfortunately, she reports that she has now developed significant low back pain, which she has been utilizing ibuprofen/ Tylenol to help mitigate. When describing her pain she points directly to her mid-lumbar spine. She reports that this low back pain has been interfering with her ability to complete some of her household tasks. She is not sure if she has always had this back pain or if it has become more prominent after her left leg and hip pain was resolved with her fusion surgery. No neurological deficits. Mobility is intact. Sensation grossly intact. Patient is able to ambulate well, rises from a seated position without difficulty. Incision site is closed, well healed. As Ledy's initial complaint that caused her to seek neurosurgical intervention has subsided, she will be discharge as a patient from our office. She was informed she may follow-up in the future at her discretion if she feels she needs re-evaluation. However, I would like to refer her to Pain Management for workup of potential interventions that could help her with her chronic low back pain, that seems to be noticeable now that her left leg pain is under control. Jose Rene MD,PhD [facility] Orders: Referrals Pain Management Referral M54.50 - Low back pain, unspecified Coding Level of Care Code Global (07566) Diagnoses Low back pain M54.50
== END 2023-03-11 13:24 | disposition home or self-care (01) ==
PROVIDERS: PCP Hospitalist; Visit Provider Physician Assistant
DX: M54.50 Low back pain, unspecified (principal)
CPT/HCPCS: 99024

== ENCOUNTER 2023-03-27 10:18 | Outpatient (AMB) | payer OTHER, SELFPAY ==
--- NOTE | 2023-03-27 10:19 | A.OFFVIS_ITS ---
Intake Vital Signs 3 03/27/23 10:25 Height 5 ft Weight 171 lb BMI 33.4 BP 128/72 Blood Pressure Location Rt brachial Position Sitting Pulse 68 Pulse Source Pulse Oximeter Pulse Oximetry (%) 98 Oxygen Delivery Method Room Air Intake Visit Reasons: LOW BACK PAIN/lvm Intake Note: Pain today 12/18 Assembler Dc Field Ring Required: Yes Assembler Dc Field Ring Language: Software Quality Engineer Name: Swathi #[id number] Allergies No Known Allergies Allergy (Verified 03/27/23 10:24) HPI LOW BACK PAIN/lvm 2 HPI0 Details Patient is a pleasant 57 years old Italian speaking female with prior history of chronic low back pain, bilateral knee replacement, right hip replacement, recent left sacroiliac joint fusion with 1 allograft implant on 01/05/[address] Rene presents today for evaluation of low back pain. Patient reports she chronic history of mild low back pain that has been more pronounced after recent left SI joint fusion. She reports left leg pain has been much better since surgery but she notes increase in low back pain, worse on the left side. Her incision is well healed in the left lower back with mild tenderness around the incisional line, no swelling, skin discoloration or erythema. Back pain is mostly axial, worsened with facet loading and extension. Pain negatively affects her daily functioning and activities, mobility, ADLs, disrupts her sleep-wake cycle and diminishes her quality of life. Patient would like to proceed with diagnostic lumbar medial branch blocks for potential Sprint PNS trial or RFA procedures. Denies any fever, weight loss, abdominal or groin pain, bladder or bowel dysfunction or saddle anesthesia. 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 Left SIJ fusion 01/05/23 Dr. Rene [facility] Medical History Depression Obesity Low back pain History of COVID-19 Osteoarthritis Anemia GERD (gastroesophageal reflux disease) HTN (hypertension) Surgical History Hx of section H/O colonoscopy History of hip replacement History of knee replacement Family History Father No problems noted. Father Cancer AD (Alzheimer's disease) Mother Breast cancer High blood pressure Maternal Aunt Stomach cancer Social History Household Members: Children and Other Housing: House Housing Other:: 2nd floor-2 family house Are you a primary aged or disabled care worker to a significant other at home: No Do you presently have visiting nurse or other home services: No Alcohol intake: current Alcohol intake frequency: holidays/special occasions only Patient Tobacco Use Status: Never used Tobacco e-Cigarette/Vaping Use: Never Used Second Hand Smoke Exposure: No Advance Directives Date on File: 02/24/20 service: No Current occupational status: disabled Current occupational exposures/hazards: No Cognitive needs: No Hearing needs: No Vision needs: No Review of Systems Const All systems reviewed & are unremarkable except as noted in HPI and below Physical Exam Vital Signs: Last Vital Signs Pulse 68 03/27/23 10:25 BP 128/72 03/27/23 10:25 Pulse Ox 98 03/27/23 10:25 Oxygen Delivery Method Room Air 03/27/23 10:25 BMI result Body Mass Index 33.4 General: Appears afebrile. No acute distress. Alert and oriented. Pleasant. Mood and affect appropriate. Follows and participates in conversation appropriately. Respiratory effort is unlabored. No cough. Able to transition from sit to stand unassisted. Uses cane with ambulation. Ambulates with bilaterally normal heel strike and toe off. Back/Spine/Pelvis Other: Patient is able to walk and stand on heels and tip toes with no difficulties demonstrating good motor tone. Antalgic gait. Uses cane. No limping. Reports pain with changing positions, worse from sitting to standing. Can flex forward to 70-75 degrees and extend to 5-10 degrees before experiencing lumbar pain, lumbar extension reproduces moderate pain. Demonstrates 5/5 strength of quadriceps bilaterally as well as flexion/dorsiflexion of bilateral feet against resistance. 2+ pedal pulses bilaterally. Seated straight leg rise with dorsiflexion negative bilaterally. +2 patellar and achilles reflexes bilaterally. Facet loading test positive bilaterally. Pelvic compression and Stinchfield tests are negative bilaterally. No midline tenderness to palpation in the lumbar spine. Cervical Spine: cervical ROM normal and No Cervical spine tenderness Thoracic/Lumbar Spine: thoracic and lumbar spine normal to inspection, Thoracic/lumbar spine scar(s) (well healed left lower back incision, mild tenderness around incision), pain with thoraco-lumbar ROM, paraspinal muscle tenderness on the left in the lower lumbar, thoraco-lumbar ROM limited, No thoracic spinal tenderness and lumbar spinal tenderness (L4-S1) Pelvis: no buttock tenderness Sacroiliac joints: bilaterally nontender Results Reviewed Results Reviewed: XR PELVIS 03/11/23 CLINICAL INFORMATION: Arthrodesis status COMPARISON: None available. TECHNIQUE: AP view of the pelvis. FINDINGS: The patient is status post right total hip replacement. No fracture. Alignment is anatomic. Lucency inferior to the inferior aspect of the acetabular component is of doubtful clinical significance. Comparison to prior radiographs is suggested. There is mild degenerative change of the sacroiliac joints with 2.1 x 1.5 cm sclerotic focus along the sacral side of the left sacroiliac joint. The pubic symphysis are normal. The calcifications in the pelvis which include vascular and probable small phleboliths. There are degenerative changes in the lower lumbar spine. IMPRESSION: 1. Status post right total hip replacement without evidence of fracture. 2. Lucency inferior to the inferior aspect of the acetabular component is noted. Comparison to prior radiographs is suggested. 3. 2.1 x 1.5 cm sclerotic focus along the sacral side of the left sacroiliac joint. Comparison to prior radiographs is suggested. Assessment & Plan Assessment & Plan (1) Low back pain: Code(s): M54.50 - Low back pain, unspecified (2) Lumbosacral spondylosis: Code(s): M47.817 - Spondylosis without myelopathy or radiculopathy, lumbosacral region (3) S/P fusion of sacroiliac joint: Code(s): Z98.1 - Arthrodesis status Plan Lumbar spine imaging to assess degree of degenerative changes, any subluxation, listhesis, compression fractures or pars defects. For axial low back pain will schedule for diagnostic bilateral L3-L4-L5 medial branch blocks with local and fluoroscopy. If she has significant relief from the diagnostic blocks for her axial low back pain, will consider either therapeutic injections, Sprint PNS or RFA depending on her preference. Expectations, risks and benefits were reviewed. Patient is aware she will be contacted to schedule this procedure. All questions were answered and the patient is in agreement of plan. Follow-up after injections and sooner as needed. Orders: Orders 2 XR lumbar spine 6V w bending Today M47.817 - Spondylosis without myelopathy or radiculopathy, lumbosacral region, M54.50 - Low back pain, unspecified Coding Level of Care Code New Pt Level 4 (71945) Diagnoses Low back pain M54.50 Lumbosacral spondylosis M47.817 S/P fusion of sacroiliac joint Z98.1
[2023-03-27 10:25] VITALS: BP 128/72; PULSE 68; O2SAT 98; BMI 33.4
== END 2023-03-27 10:42 | disposition home or self-care (01) ==
PROVIDERS: PCP Hospitalist; Referring Provider Physician Assistant; Visit Provider Nurse Practitioner Family
DX: M54.50 Low back pain, unspecified (principal); M47.817 Spondylosis without myelopathy or radiculopathy, lumbosacral region; Z98.1 Arthrodesis status
CPT/HCPCS: 99204

== ENCOUNTER → 2023-03-27 10:18 | Outpatient (BNVA) | payer OTHER, SELFPAY | PROVIDERS: PCP Hospitalist; Referring Provider Physician Assistant; Visit Provider Nurse Practitioner Family | DX: M54.50 Low back pain, unspecified (principal); M47.817 Spondylosis without myelopathy or radiculopathy, lumbosacral region; Z98.1 Arthrodesis status | CPT/HCPCS: 99202 ==

== ENCOUNTER 2023-04-07 12:53 | Outpatient (REF) | payer OTHER, SELFPAY ==
--- NOTE | ~2023-04-07 | XR_ITS ---
EXAMINATION: XR LUMBOSACRAL SPINE CLINICAL INFORMATION: Reason for Exam M54.50 - Low back pain, unspecified COMPARISON: None TECHNIQUE: 7 views of the lumbar spine FINDINGS: Transitional lumbosacral anatomy with sacralization of L5 with a broad-based L5 transverse processes which appear to pseudo-articulate with the sacrum on the right and is fused with the sacrum on the left, which could be confirmed with a CT pelvis of warranted. Vertebral body heights are maintained. Grade 1 anterolisthesis of L5 on S1. No instability on flexion extension views. No pars defects. Mild multilevel degenerative disc disease with mild loss of disc space height and multilevel facet arthropathy. Atherosclerotic calcifications of the abdominal aorta. Partially imaged right hip arthroplasty. XR/XR lumbar spine 6V w bending IMPRESSION: 1. Transitional lumbosacral anatomy with sacralization of L5 with a broad-based L5 transverse processes which appear to pseudo-articulate with the sacrum on the right and is fused with the sacrum on the left, which could be confirmed with a CT pelvis of warranted. 2. Grade 1 anterolisthesis of L5 on S1. No instability on flexion extension views. 3. Mild multilevel degenerative disc disease with mild loss of disc space height and multilevel facet arthropathy.
== END 2023-04-07 12:54 | disposition home or self-care (01) ==
LOC: HO.XRAY 12:53
PROVIDERS: PCP Family Medicine; Visit Provider Nurse Practitioner Family
DX: M54.50 Low back pain, unspecified (principal); M47.817 Spondylosis without myelopathy or radiculopathy, lumbosacral region
CPT/HCPCS: 72114

== ENCOUNTER 2023-04-21 10:52 | Outpatient (AMB) | payer OTHER, SELFPAY ==
--- NOTE | 2023-04-21 10:56 | A.OFFVIS_ITS ---
Intake Vital Signs 3 04/21/23 11:28 Height 5 ft Weight 172 lb BMI 33.6 BP 144/68 H Blood Pressure Location Lt brachial Position Sitting Pulse 59 Pulse Source Pulse Oximeter Pulse Oximetry (%) 98 Oxygen Delivery Method Room Air Intake Visit Reasons: follow up xray results Intake Note: Pain today 12/18 Orthopedic Surgeon Required: Yes Orthopedic Surgeon Language: Airline Mechanic Name: Abelino #[id number] Accompanied by: Family/Other Allergies No Known Allergies Allergy (Verified 04/21/23 11:29) HPI HPI Comments 2 History of Present Illness0 Details Patient presents today for follow up for ongoing low back pain and to discuss recent lumbar spine xray results. She reports improved left lower extremity pain since recent SI joint fusion at [facility] however has ongoing lower spine discomfort. Patient reports her pain occasionally will radiate to right anterior thigh and left calf without specific dermatome. She has been managing her symptoms with Ibuprofen with minimal relief. Patient requests a different NSAID trial. Denies any recent cough, cold, infection, fever, bladder or bowel dysfunction, saddle anesthesia or other significant changes in medical history since last office visit. PRIOR: Patient is a pleasant 57 years old Greenlandic speaking female with prior history of chronic low back pain, bilateral knee replacement, right hip replacement, recent left sacroiliac joint fusion with 1 allograft implant on 01/05/[address] Rene presents today for evaluation of low back pain. Patient reports she chronic history of mild low back pain that has been more pronounced after recent left SI joint fusion. She reports left leg pain has been much better since surgery but she notes increase in low back pain, worse on the left side. Her incision is well healed in the left lower back with mild tenderness around the incisional line, no swelling, skin discoloration or erythema. Back pain is mostly axial, worsened with facet loading and extension. Pain negatively affects her daily functioning and activities, mobility, ADLs, disrupts her sleep-wake cycle and diminishes her quality of life. Patient would like to proceed with diagnostic lumbar medial branch blocks for potential Sprint PNS trial or RFA procedures. Denies any fever, weight loss, abdominal or groin pain, bladder or bowel dysfunction or saddle anesthesia. 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 Left SIJ fusion 01/05/23 Dr. Rene [facility] Medical History Depression Obesity Low back pain History of COVID-19 Osteoarthritis Anemia GERD (gastroesophageal reflux disease) HTN (hypertension) Surgical History Hx of section H/O colonoscopy History of hip replacement History of knee replacement Family History Father No problems noted. Father Cancer AD (Alzheimer's disease) Mother Breast cancer High blood pressure Maternal Aunt Stomach cancer Social History Household Members: Children and Other Housing: House Housing Other:: 2nd floor-2 family house Are you a primary child care sitter to a significant other at home: No Do you presently have visiting nurse or other home services: No Alcohol intake: current Alcohol intake frequency: holidays/special occasions only Patient Tobacco Use Status: Never used Tobacco e-Cigarette/Vaping Use: Never Used Second Hand Smoke Exposure: No Advance Directives Date on File: 02/24/20 service: No Current occupational status: disabled Current occupational exposures/hazards: No Cognitive needs: No Hearing needs: No Vision needs: No Review of Systems Const All systems reviewed & are unremarkable except as noted in HPI and below Physical Exam Vital Signs: Last Vital Signs Pulse 59 04/21/23 11:28 BP 144/68 H 04/21/23 11:28 Pulse Ox 98 04/21/23 11:28 Oxygen Delivery Method Room Air 04/21/23 11:28 BMI result Body Mass Index 33.6 General: Appears afebrile. No acute distress. Alert and oriented. Pleasant. Mood and affect appropriate. Follows and participates in conversation appropriately. Respiratory effort is unlabored. No cough. Able to transition from sit to stand unassisted. Uses cane with ambulation. Ambulates with bilaterally normal heel strike and toe off. Back/Spine/Pelvis Cervical Spine: cervical ROM normal and No Cervical spine tenderness Thoracic/Lumbar Spine: thoracic and lumbar spine normal to inspection, Thoracic/lumbar spine scar(s) (well healed left lower back incision, mild tenderness around incision), pain with thoraco-lumbar ROM, paraspinal muscle tenderness on the left in the lower lumbar, thoraco-lumbar ROM limited, No thoracic spinal tenderness and lumbar spinal tenderness (L4-S1) Pelvis: no buttock tenderness Sacroiliac joints: bilaterally nontender Results Reviewed Results Reviewed: XR LUMBOSACRAL SPINE 04/07/23 CLINICAL INFORMATION: Reason for Exam M54.50 - Low back pain, unspecified FINDINGS: Transitional lumbosacral anatomy with sacralization of L5 with a broad-based L5 transverse processes which appear to pseudo-articulate with the sacrum on the right and is fused with the sacrum on the left, which could be confirmed with a CT pelvis of warranted. Vertebral body heights are maintained. Grade 1 anterolisthesis of L5 on S1. No instability on flexion extension views. No pars defects. Mild multilevel degenerative disc disease with mild loss of disc space height and multilevel facet arthropathy. Atherosclerotic calcifications of the abdominal aorta. Partially imaged right hip arthroplasty. IMPRESSION: 1. Transitional lumbosacral anatomy with sacralization of L5 with a broad-based L5 transverse processes which appear to pseudo-articulate with the sacrum on the right and is fused with the sacrum on the left, which could be confirmed with a CT pelvis of warranted. 2. Grade 1 anterolisthesis of L5 on S1. No instability on flexion extension views. 3. Mild multilevel degenerative disc disease with mild loss of disc space height and multilevel facet arthropathy. XR PELVIS 03/11/23 CLINICAL INFORMATION: Arthrodesis status COMPARISON: None available. TECHNIQUE: AP view of the pelvis. FINDINGS: The patient is status post right total hip replacement. No fracture. Alignment is anatomic. Lucency inferior to the inferior aspect of the acetabular component is of doubtful clinical significance. Comparison to prior radiographs is suggested. There is mild degenerative change of the sacroiliac joints with 2.1 x 1.5 cm sclerotic focus along the sacral side of the left sacroiliac joint. The pubic symphysis are normal. The calcifications in the pelvis which include vascular and probable small phleboliths. There are degenerative changes in the lower lumbar spine. IMPRESSION: 1. Status post right total hip replacement without evidence of fracture. 2. Lucency inferior to the inferior aspect of the acetabular component is noted. Comparison to prior radiographs is suggested. 3. 2.1 x 1.5 cm sclerotic focus along the sacral side of the left sacroiliac joint. Comparison to prior radiographs is suggested. Assessment & Plan Assessment & Plan (1) Lumbosacral spondylosis: Code(s): M47.817 - Spondylosis without myelopathy or radiculopathy, lumbosacral region (2) Low back pain: Code(s): M54.50 - Low back pain, unspecified (3) S/P fusion of sacroiliac joint: Code(s): Z98.1 - Arthrodesis status Plan Lumbar spine imaging results were discussed with patient and her family today in greater detail. We reviewed interventional treatments for axial low back pain and will proceed with diagnostic bilateral L3-L4-L5 medial branch blocks with local and fluoroscopy. If patient has significant relief from the diagnostic blocks for her axial low back pain, will proceed with Sprint PNS trial. We also reviewed therapeutic injections and RFA procedure. Expectations, risks and benefits were reviewed. Patient is aware she will be contacted to schedule this procedure. All questions were answered and the patient is in agreement of plan. Follow-up after injections and sooner as needed. Medications: New 2 diclofenac potassium Take with food and full glass of water. 50 mg PO BID PRN 60 tabs 1RF pain 30 days M47.817 - Spondylosis without myelopathy or radiculopathy, lumbosacral region, M54.50 - Low back pain, unspecified Coding Level of Care Code Est Pt Level 3 (22365) Diagnoses Lumbosacral spondylosis M47.817 Low back pain M54.50 S/P fusion of sacroiliac joint Z98.1
[2023-04-21 11:28] VITALS: BP 144/68; PULSE 59; O2SAT 98; BMI 33.6
== END 2023-04-21 11:27 | disposition home or self-care (01) ==
PROVIDERS: PCP Family Medicine; Visit Provider Nurse Practitioner Family
DX: M47.817 Spondylosis without myelopathy or radiculopathy, lumbosacral region (principal); M54.50 Low back pain, unspecified; Z98.1 Arthrodesis status
CPT/HCPCS: 99214

== ENCOUNTER → 2023-04-21 10:52 | Outpatient (BNVA) | payer OTHER, SELFPAY | PROVIDERS: PCP Family Medicine; Visit Provider Nurse Practitioner Family | DX: M47.817 Spondylosis without myelopathy or radiculopathy, lumbosacral region (principal); M54.50 Low back pain, unspecified; Z98.1 Arthrodesis status | CPT/HCPCS: 99212 ==

== ENCOUNTER 2023-06-04 06:12 | Outpatient (REF) | payer OTHER, SELFPAY ==
--- NOTE | ~2023-06-04 | FL_ITS ---
EXAMINATION: XR FLUOROSCOPY WITH IMAGES CLINICAL INFORMATION: Lumbosacral spondylosis without myelopathy or radiculopathy. COMPARISON: Fluoroscopy dated 12/28/2022. TECHNIQUE: Fluoroscopy Supervised By: Rhiannon Massey. Fluoroscopy Time: 17.5 seconds. Cumulative Dose: 6.43 mGy. Images: 4. FINDINGS: The submitted images show injection needles and injected contrast at the bilateral L3-L4 and L5-S1 levels and the left L4-L5 level. FL/FL guidance in treatment room IMPRESSION: Intraoperative fluoroscopic guidance is provided during bilateral lumbosacral pain injections. Please see the patient's Operative Report for full procedural details.
== END 2023-06-04 06:13 | disposition home or self-care (01) ==
LOC: CF 06:12
PROVIDERS: Visit Provider Internal Medicine
DX: M47.817 Spondylosis without myelopathy or radiculopathy, lumbosacral region (principal)
CPT/HCPCS: 64493; 64494; J2795; Q9967

== ENCOUNTER 2023-06-04 07:40 | Outpatient (AMB) | payer OTHER, SELFPAY ==
[2023-06-04 08:04] VITALS: BP 112/62; PULSE 56; O2SAT 98
--- NOTE | 2023-06-04 08:04 | MHC.OFFVIS ---
Intake Vital Signs 06/04/23 08:04 06/04/23 08:42 Height 5 ft BP 112/62 120/77 Blood Pressure Location Rt brachial Rt brachial Position Sitting Sitting Pulse 56 56 Pulse Oximetry (%) 98 97 Oxygen Delivery Method Room Air Intake Visit Reasons: Leland Dx L3-L4-L5 MBB Allergies No Known Allergies Allergy (Verified 04/21/23 11:29) HPI Leland Dx L3-L4-L5 MBB HPI Details Patient presents for scheduled procedure. Denies any recent cough, cold, infection, fever or other significant changes in medical history since last office visit. PFSH Medical History Depression Obesity Low back pain History of COVID-19 Osteoarthritis Anemia GERD (gastroesophageal reflux disease) HTN (hypertension) Surgical History Hx of section H/O colonoscopy History of hip replacement History of knee replacement Family History Father No problems noted. Father Cancer AD (Alzheimer's disease) Mother Breast cancer High blood pressure Maternal Aunt Stomach cancer Social History Household Members: Children and Other Housing: House Housing Other:: 2nd floor-2 family house Are you a primary critical care physician assistant to a significant other at home: No Do you presently have visiting nurse or other home services: No Alcohol intake: current Alcohol intake frequency: holidays/special occasions only Patient Tobacco Use Status: Never used Tobacco e-Cigarette/Vaping Use: Never Used Second Hand Smoke Exposure: No Advance Directives Date on File: 02/24/20 service: No Current occupational status: disabled Current occupational exposures/hazards: No Cognitive needs: No Hearing needs: No Vision needs: No Physical Exam Vital Signs: Last Vital Signs Pulse 56 06/04/23 08:04 BP 112/62 06/04/23 08:04 Pulse Ox 98 06/04/23 08:04 Office Procedures Lumbar/Sacral Facet Inj Details: Lumbar Medial Branch Block, Bilateral L3, L4 medial branches and L5 Dorsal Ramus (2 levels, 3 nerves) After obtaining written consent, pre-procedure blood pressure and pulse were recorded and are in the nursing record for review. The patient was placed in a prone position. The respective lumbosacral area was prepped with chloraprep and draped in sterile fashion. The skin over the target medial branch nerves was anesthetized with 0.5% lidocaine. A 22 gauge 3.5 inch needle was inserted into the target medial branch nerve under fluoroscopic guidance. No paresthesias were elicited with needle placement and aspiration was negative for blood and CSF. Next, 0.2cc of omnipaque 180 was injected to verify positioning. Next 0.5 ml 0.5% ropivicaine was injected (0.5cc total per level). The identical procedure was performed at the remaining levels. The skin was cleansed and a sterile bandage was applied. Following the procedure the patient's vital signs were stable. The patient tolerated the procedure well and no complications were encountered. Following the procedure the patient's vital signs were stable. The patient was discharged home in good condition with post-procedural instructions. Time Out: Immediately prior to the procedure, the following was verbally confirmed that there is a signed consent form and that the correct patient, planned procedure, site and side are consistent with documentation and that necessary equipment and/or blood products are available prior to the start of the case. Complications: none EBL: <5 cc 38207 - with Fluoroscopy 93203 - second level, with Fluoroscopy (bilateral) Procedure code (CPT) selection complete Assessment & Plan Assessment & Plan (1) Lumbosacral spondylosis: Code(s): M47.817 - Spondylosis without myelopathy or radiculopathy, lumbosacral region Qualifiers: Spinal osteoarthritis complication: without myelopathy or radiculopathy Qualified Code(s): M47.817 - Spondylosis without myelopathy or radiculopathy, lumbosacral region Plan Patient is status post bilateral L3, L4 MB, L5 DR diagnostic blocks. Patient tolerated procedure well and was discharged home in stable condition with discharge instructions. All questions were answered. We will follow-up via telephone or in clinic to assess response to therapy. A follow-up appointment was made during today's visit. Orders: Orders FL guidance in treatment room Today M47.817 - Spondylosis without myelopathy or radiculopathy, lumbosacral region Coding Level of Care Code Procedure Only Diagnoses Spondylosis of lumbosacral region without myelopathy or radiculopathy M47.817 Spinal osteoarthritis complication: without myelopathy or radiculopathy CPT Codes Facet Injection-Lumbar/Sacral - CPT: 77015 - with Fluoroscopy ([id number]) Facet Injection-Lumbar/Sacral - CPT: 74362 - second level, with Fluoroscopy ([id number])
[2023-06-04 08:42] VITALS: BP 120/77; PULSE 56; O2SAT 97
== END 2023-06-04 08:54 | disposition home or self-care (01) ==
LOC: HO.PMCPRC 07:40
PROVIDERS: PCP Family Medicine; Visit Provider Internal Medicine
DX: M47.817 Spondylosis without myelopathy or radiculopathy, lumbosacral region (principal)
CPT/HCPCS: 64493; 64494

== ENCOUNTER 2023-06-08 09:03 | Outpatient (AMB) | payer OTHER, SELFPAY ==
--- NOTE | 2023-06-08 09:08 | A.OFFVIS_ITS ---
Intake Vital Signs 3 06/08/23 09:14 Height 5 ft Weight 172 lb 6 oz BMI 33.7 BP 106/65 Blood Pressure Location Rt brachial Position Sitting Pulse 65 Pulse Source Pulse Oximeter Pulse Oximetry (%) 98 Oxygen Delivery Method Room Air Intake Visit Reasons: s/p Leland Dx L3-L4-L5 MBB Intake Note: Pain today 11/17 Supervisor Riveting Required: Yes Supervisor Riveting Language: [place] Name: Gemma #[id number] Accompanied by: Self / Same As Patient Allergies No Known Allergies Allergy (Verified 06/08/23 09:17) HPI HPI Comments 2 History of Present Illness0 Details Patient presents today to assess response to Diagnostic Bilateral L3-L4 DR L5 MBB on 06/04/[address] Jacobsen. Patient 60% pain relief for 6 hours after the procedure for axial low back pain with improved functioning and range of motion but no pain relief for her left sided radicular pain with mobility, prolonged standing or walking or sleeping. She reports left buttock pain and heaviness, numbness and tingling in her left leg posteriorly with lumbar flexion, prolonged walking and standing. Patient would like to undergo therapeutic NADER injection prior to Sprint PNS trial for axial low back pain. Denies any recent cough, cold, infection, fever, bladder or bowel dysfunction, saddle anesthesia or other significant changes in medical history since last office visit. Past Procedures: 06/04/23: Diagnostic Bilateral L3-L4 DR L5 MBB-60% pain relief for 6 hours PRIOR: Patient is a pleasant 57 years old Turkmen speaking female with prior history of chronic low back pain, bilateral knee replacement, right hip replacement, recent left sacroiliac joint fusion with 1 allograft implant on 01/05/[address] Rene presents today for evaluation of low back pain. Patient reports she chronic history of mild low back pain that has been more pronounced after recent left SI joint fusion. She reports left leg pain has been much better since surgery but she notes increase in low back pain, worse on the left side. Her incision is well healed in the left lower back with mild tenderness around the incisional line, no swelling, skin discoloration or erythema. Back pain is mostly axial, worsened with facet loading and extension. Pain negatively affects her daily functioning and activities, mobility, ADLs, disrupts her sleep-wake cycle and diminishes her quality of life. Patient would like to proceed with diagnostic lumbar medial branch blocks for potential Sprint PNS trial or RFA procedures. Denies any fever, weight loss, abdominal or groin pain, bladder or bowel dysfunction or saddle anesthesia. 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 Left SIJ fusion 01/05/23 Dr. Rene [facility] Medical History Depression Obesity Low back pain History of COVID-19 Osteoarthritis Anemia GERD (gastroesophageal reflux disease) HTN (hypertension) Surgical History Hx of section H/O colonoscopy History of hip replacement History of knee replacement Family History Father No problems noted. Father Cancer AD (Alzheimer's disease) Mother Breast cancer High blood pressure Maternal Aunt Stomach cancer Social History Household Members: Children and Other Housing: House Housing Other:: 2nd floor-2 family house Are you a primary director of managed care to a significant other at home: No Do you presently have visiting nurse or other home services: No Alcohol intake: current Alcohol intake frequency: holidays/special occasions only Patient Tobacco Use Status: Never used Tobacco e-Cigarette/Vaping Use: Never Used Second Hand Smoke Exposure: No Advance Directives Date on File: 02/24/20 service: No Current occupational status: disabled Current occupational exposures/hazards: No Cognitive needs: No Hearing needs: No Vision needs: No Review of Systems Const All systems reviewed & are unremarkable except as noted in HPI and below Physical Exam Vital Signs: Last Vital Signs Pulse 65 06/08/23 09:14 BP 106/65 06/08/23 09:14 Pulse Ox 98 06/08/23 09:14 Oxygen Delivery Method Room Air 06/08/23 09:14 BMI result Body Mass Index 33.7 General: Appears afebrile. No acute distress. Alert and oriented. Pleasant. Mood and affect appropriate. Follows and participates in conversation appropriately. Respiratory effort is unlabored. No cough. Able to transition from sit to stand unassisted. Uses cane with ambulation. Ambulates with bilaterally normal heel strike and toe off, feels slightly unsteady on the left. Back/Spine/Pelvis Cervical Spine: cervical ROM normal and No Cervical spine tenderness Thoracic/Lumbar Spine: thoracic and lumbar spine normal to inspection, Thoracic/lumbar spine scar(s) (well healed left lower back incision, mild tenderness around incision), Lasegue's sign positive on the left and localized, pain with thoraco-lumbar ROM, paraspinal muscle tenderness on the left in the lower lumbar, thoraco-lumbar ROM limited, No thoracic spinal tenderness and lumbar spinal tenderness (L4-S1) Pelvis: buttock tenderness on the left and sciatic notch tenderness on the left Sacroiliac joints: on the right nontender and on the left tender to palpation Extrem General: Yes capillary refill normal, Yes no clubbing, cyanosis or edema and Yes no calf tenderness Results Reviewed Results Reviewed: XR LUMBOSACRAL SPINE 04/07/23 CLINICAL INFORMATION: Reason for Exam M54.50 - Low back pain, unspecified FINDINGS: Transitional lumbosacral anatomy with sacralization of L5 with a broad-based L5 transverse processes which appear to pseudo-articulate with the sacrum on the right and is fused with the sacrum on the left, which could be confirmed with a CT pelvis of warranted. Vertebral body heights are maintained. Grade 1 anterolisthesis of L5 on S1. No instability on flexion extension views. No pars defects. Mild multilevel degenerative disc disease with mild loss of disc space height and multilevel facet arthropathy. Atherosclerotic calcifications of the abdominal aorta. Partially imaged right hip arthroplasty. IMPRESSION: 1. Transitional lumbosacral anatomy with sacralization of L5 with a broad-based L5 transverse processes which appear to pseudo-articulate with the sacrum on the right and is fused with the sacrum on the left, which could be confirmed with a CT pelvis of warranted. 2. Grade 1 anterolisthesis of L5 on S1. No instability on flexion extension views. 3. Mild multilevel degenerative disc disease with mild loss of disc space height and multilevel facet arthropathy. XR PELVIS 03/11/23 CLINICAL INFORMATION: Arthrodesis status COMPARISON: None available. TECHNIQUE: AP view of the pelvis. FINDINGS: The patient is status post right total hip replacement. No fracture. Alignment is anatomic. Lucency inferior to the inferior aspect of the acetabular component is of doubtful clinical significance. Comparison to prior radiographs is suggested. There is mild degenerative change of the sacroiliac joints with 2.1 x 1.5 cm sclerotic focus along the sacral side of the left sacroiliac joint. The pubic symphysis are normal. The calcifications in the pelvis which include vascular and probable small phleboliths. There are degenerative changes in the lower lumbar spine. IMPRESSION: 1. Status post right total hip replacement without evidence of fracture. 2. Lucency inferior to the inferior aspect of the acetabular component is noted. Comparison to prior radiographs is suggested. 3. 2.1 x 1.5 cm sclerotic focus along the sacral side of the left sacroiliac joint. Comparison to prior radiographs is suggested. Assessment & Plan Assessment & Plan (1) Lumbosacral spondylosis: Code(s): M47.817 - Spondylosis without myelopathy or radiculopathy, lumbosacral region Qualifiers: Spinal osteoarthritis complication: without myelopathy or radiculopathy Qualified Code(s): M47.817 - Spondylosis without myelopathy or radiculopathy, lumbosacral region (2) Low back pain: Code(s): M54.50 - Low back pain, unspecified (3) S/P fusion of sacroiliac joint: Code(s): Z98.1 - Arthrodesis status (4) Vertebrogenic low back pain: Code(s): M54.51 - Vertebrogenic low back pain (5) Lumbar radiculopathy: Code(s): M54.16 - Radiculopathy, lumbar region Plan Patient is status post diagnostic medial branch blocks with 60% pain relief for 6 hours. She is interested to proceed with injections to alleviate her left radicular symptoms as this affects her mobility, standing and sleeping. Her pain also has discogenic component as it easily exacerbated with lumbar flexion and previous findings of degenerative changes on the endplates with Modic changes per MRI in 2021. We will plan for Left L5-S1 TFESI with local/oral Ativan and fluoroscopy. Expectations, risks and benefits were reviewed. Patient is aware she will be contacted to schedule this procedure. All questions were answered and the patient is in agreement of plan. Follow-up after injections and sooner as needed. Medications: Discontinued 2 diclofenac potassium Take with food and full glass of water. Discontinued Reason: Patient Completed Course 50 mg PO BID 30 days PRN 60 tabs 1RF pain M47.817 - Spondylosis without myelopathy or radiculopathy, lumbosacral region, M54.50 - Low back pain, unspecified Coding Level of Care Code Est Pt Level 3 (41947) Diagnoses Spondylosis of lumbosacral region without myelopathy or radiculopathy M47.817 Spinal osteoarthritis complication: without myelopathy or radiculopathy Low back pain M54.50 S/P fusion of sacroiliac joint Z98.1 Vertebrogenic low back pain M54.51 Lumbar radiculopathy M54.16
[2023-06-08 09:14] VITALS: BP 106/65; PULSE 65; O2SAT 98; BMI 33.7
== END 2023-06-08 09:39 | disposition home or self-care (01) ==
PROVIDERS: PCP Family Medicine; Visit Provider Nurse Practitioner Family
DX: M47.817 Spondylosis without myelopathy or radiculopathy, lumbosacral region (principal); M54.50 Low back pain, unspecified; Z98.1 Arthrodesis status; M54.51 Vertebrogenic low back pain; M54.16 Radiculopathy, lumbar region
CPT/HCPCS: 99213

== ENCOUNTER → 2023-06-08 09:03 | Outpatient (BNVA) | payer OTHER, SELFPAY | PROVIDERS: PCP Family Medicine; Visit Provider Nurse Practitioner Family | DX: M47.817 Spondylosis without myelopathy or radiculopathy, lumbosacral region (principal); M54.50 Low back pain, unspecified; M54.51 Vertebrogenic low back pain; M54.16 Radiculopathy, lumbar region; Z98.1 Arthrodesis status | CPT/HCPCS: 99212 ==

== ENCOUNTER 2023-06-26 11:35 | Outpatient (AMB) | payer OTHER, SELFPAY ==
[2023-06-26 11:44] VITALS: BP 102/70; PULSE 55; RESP 13; TEMP 36.3; O2SAT 98; BMI 34.6
--- NOTE | 2023-06-26 11:44 | MHC.PC.OV ---
Vital Signs 06/26/23 11:44 Height 5 ft Weight 177 lb 2 oz BMI 34.6 BP 102/70 Blood Pressure Location Rt brachial Position Sitting Respiration 13 Pulse 55 Pulse Source Pulse Oximeter Temp 97.3 F Temp Source Temporal Artery Scan Pulse Oximetry (%) 98 Oxygen Delivery Method Room Air Intake Visit Reasons: Kidney Issues Rn Radiology Required: Yes Rn Radiology Name: Macario ([id number]) Accompanied by: Self / Same As Patient Allergies No Known Allergies Allergy (Verified 06/26/23 12:04) Medication List - Last Reconciled 06/26/23 by Gustavo Rai CNP blood pressure test kit-medium As directed clonidine HCl 0.1 mg PO BEDTIME docusate sodium (Colace) 100 mg PO BID gabapentin 600 mg PO BEDTIME 90 days lisinopril-hydrochlorothiazide 20-25 mg 1 tab PO BEDTIME 90 days meclizine 25 mg PO TID PRN metoprolol tartrate 50 mg PO BID omeprazole 20 mg PO QAM trazodone 100 mg (2 x 50 mg) PO BEDTIME Tobacco use date assessed: 06/26/23 Dental Screening Dental Screen Date: 06/26/23 Did you have a dental visit in the last 12 months?: Yes Did you have a dental problem in the last 6 months where you did not have access to dental care?: No Was dental information given to patient?: Patient has dentist HPI HPI Comments History of Present Illness Details 57-year-old Divehi speaking female presents with concerns that she was told by her pain management provider [place] [facility] be prescribed certain pain medications because her GFR was low in December 2022 She offers no complaints and denies acute symptoms at this time She is establishing care with Dr. Sheets in August 2023 Interpretation by a professional motor vehicle parts interpreter via electronic tablet [facility] Medical History Depression Obesity Low back pain History of COVID-19 Osteoarthritis Anemia GERD (gastroesophageal reflux disease) HTN (hypertension) Surgical History Hx of section H/O colonoscopy History of hip replacement History of knee replacement Family History (Updated 06/26/23 @ 11:55 by Evelyne Castro MA) Father No problems noted. Father Cancer AD (Alzheimer's disease) Mother Breast cancer High blood pressure Maternal Aunt Stomach cancer Social History Household Members: Children and Other Housing: House Housing Other:: 2nd floor-2 family house Are you a primary direct care worker to a significant other at home: No Do you presently have visiting nurse or other home services: No Alcohol intake: current Alcohol intake frequency: holidays/special occasions only Patient Tobacco Use Status: Never used Tobacco e-Cigarette/Vaping Use: Never Used Second Hand Smoke Exposure: No Advance Directives Date on File: 02/24/20 service: No Current occupational status: disabled Current occupational exposures/hazards: No Cognitive needs: No Hearing needs: No Vision needs: No Questionnaire Thrive Questionnaire Date Thrive assessed: 07/17/22 VIKKI-7 AMB Questionnaire VIKKI-7 Date VIKKI - 7 assessed: 07/17/22 Source: Developed by Drs. Abrahan Maravilla, Karma Sparks, Robert Fischer and colleagues, with an educational ilan from [employer]. Review of Systems Const Details: Const Denies chills, Denies fatigue, Denies fever(s), Denies headache(s) and Denies weakness ENT Denies dizziness and Denies headache(s) Card Denies chest pain, Denies lightheadedness, Denies dyspnea and Denies other (Palpitations) Resp Denies cough, Denies dyspnea, Denies wheezing and Denies other ( shortness of breath) GI Denies abdominal pain, Denies melena, Denies hematochezia, Denies change in bowel habits, Denies dyspepsia and Denies nausea Denies hematuria and Denies dysuria Musc Denies abnormal gait, Denies myalgias, Denies arthralgias, Denies numbness and Denies tingling Skin/Breast Denies rash, Denies unusual bruising and Denies wounds Neuro Denies abnormal gait, Denies dizziness, Denies headache(s), Denies memory loss, Denies numbness, Denies Sensory deficit (Neuro), Denies tingling and Denies weakness Psych Denies anxiety, Denies depression, Denies memory loss Endo Denies cold intolerance, Denies fatigue, Denies heat intolerance, Denies polydipsia and Denies polyuria Aller/Immun Denies wheezing Physical exam (Primary Care) Vital Signs: Last Vital Signs Temp 97.3 F 06/26/23 11:44 Pulse 55 06/26/23 11:44 Resp 13 06/26/23 11:44 BP 102/70 06/26/23 11:44 Pulse Ox 98 06/26/23 11:44 Oxygen Delivery Method Room Air 06/26/23 11:44 BMI result Body Mass Index 34.6 Tobacco/Smoking Status: Tobacco use Status Tobacco use date assessed 06/26/23 06/26/23 11:52 Patient Tobacco Use Status Never used Tobacco 06/26/23 11:52 e-Cigarette/Vaping Use Never Used 06/26/23 11:52 Thrive Assessment: Date of Thrive Assessment Date Thrive assessed 07/17/22 06/26/23 11:52 Const Other: General: no acute distress and well developed Nutritional Appearance: well nourished Orientation/consciousness: patient oriented x3 HENMT Head: Yes normocephalic and Yes atraumatic Eyes General: appearance normal, both eyes and all related structures Pupils: Equal, round and reactive pupils present EOM: EOMs intact bilaterally Resp Effort & Inspection: normal respiratory effort Auscultation: clear to auscultation bilaterally Cardio Rate: regular rate Rhythm: regular rhythm Heart sounds: S1 normal heart sound present, S2 normal heart sound present, no gallops, no murmurs and no rubs GI Palpation (GI): No Abdominal aortic bruit present, Soft to palpation, nontender, No hepatosplenomegaly present and No Rebound tenderness present Auscultation: normal bowel sounds General: Yes no CVA tenderness Back/Spine/Pelvis Back: no CVA tenderness Cervical Spine: cervical ROM normal and No Cervical spine tenderness Thoracic/Lumbar Spine: thoraco-lumbar ROM normal, No pain with thoraco-lumbar ROM, No thoracic spinal tenderness and No lumbar spinal tenderness Extrem General: Yes normal to inspection, No edema and No calf tenderness Skin General: warm and dry. Normal skin color. Normal skin turgor Neuro General: patient oriented x3, gait normal and no focal neuro deficit Cranial nerves: Yes Equal, round and reactive pupils present Cognition (Neuro): normal cognition Gait exam (Neuro): Normal gait present Sensory Exam: No Sensory deficit (Neuro) Psych Appearance: grossly normal Affect: normal affect Attitude: cooperative Thought process: Normal thought process present Assessment and Plan Assessment & Plan (1) Kidney disease: Code(s): N28.9 - Disorder of kidney and ureter, unspecified Plan: History of low GFR in February 2021 and December 2022, 55 and 54 respectively Labs ordered to check kidney function Will review results and make changes as needed. May referred to Nephrology Follow-up with Dr. Sheets as scheduled for transfer of care Return sooner with symptoms or concerns Verbalized understanding and agreed with treatment plan Orders: Orders Complete Blood Count Auto Diff Today N28.9 - Disorder of kidney and ureter, unspecified Comprehensive Met. Panel Today N28.9 - Disorder of kidney and ureter, unspecified Coding Level of Care Code Est Pt Level 4 (71266) Diagnoses Kidney disease N28.9
== END 2023-06-26 12:48 | disposition home or self-care (01) ==
PROVIDERS: PCP Family Medicine; Visit Provider Nurse Practitioner Family
DX: N28.9 Disorder of kidney and ureter, unspecified (principal)
CPT/HCPCS: 99214

== ENCOUNTER 2023-06-26 12:39 | Outpatient (REF) | payer OTHER, SELFPAY ==
[2023-06-26 14:36] LABS: MANUAL DIFF FLAG NO
[2023-06-26 14:48] LABS: Basophils Percent Auto 0.5 % (0-2); Eosinophils Absolute Auto 0.1 X10*3/uL (0.0-0.4); Eosinophils Percent Auto 1.4 % (0-4); Hematocrit 41.1 % (37.0-47.0); Hemoglobin 13.8 g/dl (12.0-16.0); Imm Gran Abs Auto 0.01 X10*3/uL (0.00-0.03); Imm Gran Pct Auto 0.2 % (0.0-0.4); Lymphocytes Absolute Auto 2.2 X10*3/uL (1.2-4.9); Lymphocytes Percent Auto 34.4 % (20-40); Mean Corpuscular HGB Conc 33.6 g/dl (31.0-35.0); Mean Corpuscular Hemoglobin 26.2 pg (27.0-33.0); Mean Corpuscular Volume 78.1 fL (80.0-98.0); Mean Platelet Volume 11.3 fL (9.4-12.3); Monocytes Absolute Auto 0.5 X10*3/uL (0.1-1.2); Monocytes Percent Auto 7.6 % (2-11); Neutrophils Absolute Auto 3.6 x10*3/uL (2.0-8.3); Neutrophils Percent Auto 55.9 % (45-73); Platelet Count 325 X10*3/uL (160-400); Red Blood Count 5.26 X10*6/uL (4.20-5.50); Red Cell Distribution Width 13.7 % (11.0-16.0); White Blood Count 6.5 X10*3/uL (4.8-10.8)
[2023-06-26 15:07] LABS: Alanine Aminotransferase 13 U/L (0-31); Alkaline Phosphatase 81 U/L (39-117); Anion Gap 13 (12-20); Aspartate Amino Transferase 14 U/L (5-31); Bilirubin Total 0.3 mg/dL (0.0-1.0); Blood Urea Nitrogen 17 mg/dL (9-16); Calcium 9.8 mg/dL (8.4-10.2); Carbon Dioxide 28 mmol/L (22-29); Chloride 103 mmol/L (96-108); Estimated Glomerular Filt Rate > 60; Glucose Random 93 mg/dL (60-115); Potassium 3.8 mmol/L (3.3-5.1); Sodium 140 mmol/L (135-145); Total Protein 7.7 g/dL (6.5-8.0)
== END 2023-06-26 12:40 | disposition home or self-care (01) ==
LOC: HO.WFDLDS 12:39
PROVIDERS: Visit Provider Nurse Practitioner Family
DX: N28.9 Disorder of kidney and ureter, unspecified (principal)
CPT/HCPCS: 36415; 80053; 85025

== ENCOUNTER 2023-07-09 06:12 | Outpatient (REF) | payer OTHER, SELFPAY | END 2023-07-09 06:13 | disposition home or self-care (01) | LOC: CF 06:12 | PROVIDERS: Visit Provider Internal Medicine | DX: Z13.89 Encounter for screening for other disorder (principal) ==

== ENCOUNTER 2023-07-16 06:21 | Outpatient (REF) | payer OTHER, SELFPAY ==
--- NOTE | ~2023-07-16 | FL_ITS ---
EXAMINATION: XR FLUOROSCOPY WITH IMAGES CLINICAL INFORMATION: Radiculopathy COMPARISON: None available. TECHNIQUE: Fluoroscopy Supervised By: Pascale Abdalla. Fluoroscopy Time: 2.5 minutes. Cumulative Dose: 17.7 mGy. DAP: 0.222 Gycm2. Images: 3. FINDINGS: There are 3 digital images obtained with needle positioned posterior to L5 vertebra with contrast opacifying the epidural space and the paravertebral soft tissues. Visualized bones are grossly unremarkable. FL/FL guidance in treatment room IMPRESSION: Fluoroscopy guidance was provided to referrer for pain management.
== END 2023-07-16 06:22 | disposition home or self-care (01) ==
LOC: CF 06:21
PROVIDERS: Visit Provider Internal Medicine
DX: M54.16 Radiculopathy, lumbar region (principal)
CPT/HCPCS: 64483; J1100; Q9967

== ENCOUNTER 2023-07-16 14:50 | Outpatient (AMB) | payer OTHER, SELFPAY ==
--- NOTE | 2023-07-16 15:44 | A.OFFVIS_ITS ---
Intake Vital Signs 07/16/23 15:45 07/16/23 15:45 Height 5 ft Weight 177 lb BMI 34.6 BP 110/70 128/80 Blood Pressure Location Lt brachial Lt brachial Position Sitting Sitting Respiration 18 16 Pulse 72 86 Pulse Source Pulse Oximeter Pulse Oximeter Pulse Oximetry (%) 97 96 Oxygen Delivery Method Room Air Room Air Comment Pre-Op Post_op Intake Visit Reasons: LEFT L5,SI TFESI Allergies No Known Allergies Allergy (Verified 07/02/23 11:14) HPI LEFT L5,SI TFESI HPI Details Patient presents for scheduled procedure. Denies any recent cough, c old, infection, fever or other significant changes in medical history since last office visit. PFSH Medical History Depression Obesity Low back pain History of COVID-19 Osteoarthritis Anemia GERD (gastroesophageal reflux disease) HTN (hypertension) Surgical History Hx of section H/O colonoscopy History of hip replacement History of knee replacement Family History (Updated 06/26/23 @ 11:55 by Evelyne Castro MA) Father No problems noted. Father Cancer AD (Alzheimer's disease) Mother Breast cancer High blood pressure Maternal Aunt Stomach cancer Social History Household Members: Children and Other Housing: House Housing Other:: 2nd floor-2 family house Are you a primary critical care clinical nurse specialist to a significant other at home: No Do you presently have visiting nurse or other home services: No Alcohol intake: current Alcohol intake frequency: holidays/special occasions only Patient Tobacco Use Status: Never used Tobacco e-Cigarette/Vaping Use: Never Used Second Hand Smoke Exposure: No Advance Directives Date on File: 02/24/20 service: No Current occupational status: disabled Current occupational exposures/hazards: No Cognitive needs: No Hearing needs: No Vision needs: No Physical Exam Vital Signs: Last Vital Signs Pulse 86 07/16/23 15:45 Resp 16 07/16/23 15:45 BP 128/80 07/16/23 15:45 Pulse Ox 96 07/16/23 15:45 Oxygen Delivery Method Room Air 07/16/23 15:45 BMI result Body Mass Index 34.6 Office Procedures Details: Transforaminal epidural steroid injection, left L5-S1 After obtaining written consent, pre-procedure blood pressure and heart rate were stable and recorded in the nursing record. The patient was placed in the prone position on the fluoroscopy table. The lumbosacral area was prepped with chloraprep, allowed to dry and draped in sterile fashion. Using fluoroscopy, the skin overlying our target was anesthetized with 0.5% lidocaine. A 22 gauge 5 inch spinal needle was advanced to the safe triangle in the upper pole of the left L5 foramen. No paresthesias were elicited with needle placement and aspiration was negative for blood and CSF. Correct needle position was confirmed with approximately 1 ml contrast dye (Omnipaque 180 mg/ml) injected under real-time fluoroscopy. No evidence of v ascular or intrathecal uptake was seen and there was both epidural and peripheral spread of the contrast agent. 10 mg dexamethasone plus 1 ml containing 0.5% lidocaine was slowly injected. The needle was flushed and removed. the same procedure was repeated for the remaining levels. The skin was cleansed and a sterile bandages were applied. The patient tolerated the procedure well and no complications were encountered. Following the procedure the patient's vital signs were stable. The patient was discharged home in good condition with post-procedural instructions. Time Out: Immediately prior to the procedure, the following was verbally confirmed that there is a signed consent form and that the correct patient, planned procedure, site and side are consistent with documentation and that n ecessary equipment and/or blood products are available prior to the start of the case. Complications: none EBL: <5 cc 45789 - Lumbar/Sacral Procedure code (CPT) selection complete Assessment & Plan Assessment & Plan (1) Lumbar radiculopathy: Code(s): M54.16 - Radiculopathy, lumbar region Plan Patient is status post left L5 TFESI. Patient tolerated procedure well and was discharged home in stable condition with discharge instructions. All questions were answered. We will follow-up via telephone or in clinic to assess response to therapy. A follow-up appointment was made during today's visit. Orders: Orders FL guidance in treatment room Today M54.16 - Radiculopathy, lumbar region Coding Level of Care Code Procedure Only Diagnoses Lumbar radiculopathy M54.16 CPT Codes Transforaminal Epidural Steroid Inj - TESI 3: 91532 - Lumbar/Sacral ([id number])
[2023-07-16 15:45] VITALS: BP 110/70; BP 128/80; PULSE 72; PULSE 86; RESP 16; RESP 18; O2SAT 96; O2SAT 97; BMI 34.6
== END 2023-07-16 15:40 | disposition home or self-care (01) ==
LOC: HO.PMCPRC 14:51
PROVIDERS: PCP Family Medicine; Visit Provider Internal Medicine
DX: M54.16 Radiculopathy, lumbar region (principal)
CPT/HCPCS: 64483

== ENCOUNTER 2023-08-13 14:24 | Outpatient (AMB) | payer OTHER, SELFPAY ==
--- NOTE | 2023-08-13 14:25 | A.OFFVIS_ITS ---
Intake Vital Signs 3 08/13/23 14:32 Height 5 ft Weight 171 lb 3 oz BMI 33.4 BP 126/67 Blood Pressure Location Rt brachial Position Sitting Pulse 65 Pulse Source Pulse Oximeter Pulse Oximetry (%) 99 Oxygen Delivery Method Room Air Intake Visit Reasons: LEFT L5, S1 TFESI Intake Note: Pain today 6/10 Home Service Director Required: Yes Home Service Director Language: Cylinder Press Feeder Name: Giovanna #[id number] Accompanied by: Self / Same As Patient Allergies No Known Allergies Allergy (Verified 08/13/23 14:33) HPI HPI Comments 2 History of Present Illness0 Details Patient presents today to assess response to Left L5 TFESI on 07/16/[address] Jacobsen. Patient reports 90% pain relief for 2 weeks with improved functioning, left leg pain but minimal relief for low back pain, range of motion or sleep. She continues to endorse intractable low back pain with radiation into her left buttock and left leg laterally and posteriorly. Patient also presents with medial knee tenderness with prior history of knee replacements. She has been treating her pain with gabapentin, Tylenol and NSAIDs prn with continued symptoms. Currently rates pain at 6/10 at rest and 8/10 with walking and daily activities. Denies any recent cough, cold, infection, fever, bladder or bowel dysfunction, saddle anesthesia, any significant changes in her medical history, medications or recent hospitalizations. We discussed neuromodulation with SCS trial vs implant today. Patient would like to see [facility] prior to any further interventional treatments but would like to undergo Behavioral Evaluation through her current Mental health provider at [facility], TYESHA Pickard who she sees for depression. Patient reports good social and mental support. Past Procedures: 07/16/23: Left L5 TFESI-90% pain relief for 2 weeks 06/04/23: Diagnostic Bilateral L3-L4 L5 MBB-60% pain relief for 6 hours PRIOR: Patient is a pleasant 57 years old [place] Islander speaking female with prior history of chronic low back pain, bilateral knee replacement, right hip replacement, recent left sacroiliac joint fusion with 1 allograft implant on 01/05/[address] Rene presents today for evaluation of low back pain. Patient reports she chronic history of mild low back pain that has been more pronounced after recent left SI joint fusion. She reports left leg pain has been much better since surgery but she notes increase in low back pain, worse on the left side. Her incision is well healed in the left lower back with mild tenderness around the incisional line, no swelling, skin discoloration or erythema. Back pain is mostly axial, worsened with facet loading and extension. Pain negatively affects her daily functioning and activities, mobility, ADLs, disrupts her sleep-wake cycle and diminishes her quality of life. Patient would like to proceed with diagnostic lumbar medial branch blocks for potential Sprint PNS trial or RFA procedures. Denies any fever, weight loss, abdominal or groin pain, bladder or bowel dysfunction or saddle anesthesia. Location Lower back pain Duration Chronic for >1 year Characteristics of symptom or complaint Pressure like, aching, dull Aggravating or associated factors Changing position sitting to standing, walking, standing, fire lookout Relieving factors Activity modifications, Motrin, Tylenol, heat therapy- minimal improvement Treatment PT in 2019, 2021. Left SIJ fusion 01/05/23 Dr. Rene [facility] Medical History Depression Obesity Low back pain History of COVID-19 Osteoarthritis Anemia GERD (gastroesophageal reflux disease) HTN (hypertension) Surgical History Hx of section H/O colonoscopy History of hip replacement History of knee replacement Family History Father No problems noted. Father Cancer AD (Alzheimer's disease) Mother Breast cancer High blood pressure Maternal Aunt Stomach cancer Social History Household Members: Children and Other Housing: House Housing Other:: 2nd floor-2 family house Are you a primary landcare officer to a significant other at home: No Do you presently have visiting nurse or other home services: No Alcohol intake: current Alcohol intake frequency: holidays/special occasions only Patient Tobacco Use Status: Never used Tobacco e-Cigarette/Vaping Use: Never Used Second Hand Smoke Exposure: No Advance Directives Date on File: 02/24/20 service: No Current occupational status: disabled Current occupational exposures/hazards: No Cognitive needs: No Hearing needs: No Vision needs: No Review of Systems Const All systems reviewed & are unremarkable except as noted in HPI and below Physical Exam General: Appears afebrile. No acute distress. Alert and oriented. Pleasant. Mood and affect appropriate. Follows and participates in conversation appropriately. Respiratory effort is unlabored. No cough. Able to transition from sit to stand unassisted. Uses cane with ambulation. Ambulates with bilaterally normal heel strike and toe off, feels slightly unsteady on the left. Back/Spine/Pelvis Cervical Spine: cervical ROM normal, cervical muscular tenderness and No Cervical spine tenderness Thoracic/Lumbar Spine: thoracic and lumbar spine normal to inspection, Thoracic/lumbar spine scar(s) (well healed left lower back incision), Lasegue's sign positive on the left and localized, pain with thoraco-lumbar ROM, paraspinal muscle tenderness on the left in the lower lumbar, thoraco-lumbar ROM limited, No thoracic spinal tenderness and lumbar spinal tenderness (L4-S1) Pelvis: buttock tenderness on the left and sciatic notch tenderness on the left Sacroiliac joints: on the right nontender and on the left tender to palpation Extrem General: Yes capillary refill normal, Yes no clubbing, cyanosis or edema and Yes no calf tenderness Results Reviewed Results Reviewed: XR LUMBOSACRAL SPINE 04/07/23 CLINICAL INFORMATION: Reason for Exam M54.50 - Low back pain, unspecified FINDINGS: Transitional lumbosacral anatomy with sacralization of L5 with a broad-based L5 transverse processes which appear to pseudo-articulate with the sacrum on the right and is fused with the sacrum on the left, which could be confirmed with a CT pelvis of warranted. Vertebral body heights are maintained. Grade 1 anterolisthesis of L5 on S1. No instability on flexion extension views. No pars defects. Mild multilevel degenerative disc disease with mild loss of disc space height and multilevel facet arthropathy. Atherosclerotic calcifications of the abdominal aorta. Partially imaged right hip arthroplasty. IMPRESSION: 1. Transitional lumbosacral anatomy with sacralization of L5 with a broad-based L5 transverse processes which appear to pseudo-articulate with the sacrum on the right and is fused with the sacrum on the left, which could be confirmed with a CT pelvis of warranted. 2. Grade 1 anterolisthesis of L5 on S1. No instability on flexion extension views. 3. Mild multilevel degenerative disc disease with mild loss of disc space height and multilevel facet arthropathy. XR PELVIS 03/11/23 CLINICAL INFORMATION: Arthrodesis status FINDINGS: The patient is status post right total hip replacement. No fracture. Alignment is anatomic. Lucency inferior to the inferior aspect of the acetabular component is of doubtful clinical significance. Comparison to prior radiographs is suggested. There is mild degenerative change of the sacroiliac joints with 2.1 x 1.5 cm sclerotic focus along the sacral side of the left sacroiliac joint. The pubic symphysis are normal. The calcifications in the pelvis which include vascular and probable small phleboliths. There are degenerative changes in the lower lumbar spine. IMPRESSION: 1. Status post right total hip replacement without evidence of fracture. 2. Lucency inferior to the inferior aspect of the acetabular component is noted. Comparison to prior radiographs is suggested. 3. 2.1 x 1.5 cm sclerotic focus along the sacral side of the left sacroiliac joint. Comparison to prior radiographs is suggested. Assessment & Plan Assessment & Plan (1) Low back pain: Code(s): M54.50 - Low back pain, unspecified (2) Lumbosacral spondylosis: Code(s): M47.817 - Spondylosis without myelopathy or radiculopathy, lumbosacral region Qualifiers: Spinal osteoarthritis complication: without myelopathy or radiculopathy Qualified Code(s): M47.817 - Spondylosis without myelopathy or radiculopathy, lumbosacral region (3) Vertebrogenic low back pain: Code(s): M54.51 - Vertebrogenic low back pain (4) Lumbar radiculopathy: Code(s): M54.16 - Radiculopathy, lumbar region (5) S/P fusion of sacroiliac joint: Code(s): Z98.1 - Arthrodesis status Plan Patient is status post left L5 TFESI injections on 07/16/23 providing her good but temporary pain relief for 2 weeks with improvement in her functioning and mobility. She also had 60% pain relief with diagnostic medial branch blocks with 60% pain relief for 6 hours previously. We discussed neuromodulation with PNS vs SCS trial for axial low back and radicular left leg symptoms. Informational pamphlets provided in [place]. Patient would like to see [facility] prior to any further interventional treatments but would like to undergo Behavioral Evaluation through her current Mental health provider at [facility], TYESHA Skinner who she sees for depression. I will place referral for Behavioral evaluation per her request to [facility]. Extensive discussion regarding the risks and benefits of PNS vs SCS trial and implant procedures and all questions were answered to patient satisfaction. Short script provided for hydrocodone-acetaminophen for moderate-severe pain. Side effects and precautions were reviewed with patient. All questions were answered and the patient is in agreement of plan. Follow-up as needed. Orders: Referrals 2 Psychology Referral M47.817 - Spondylosis without myelopathy or radiculopathy, lumbosacral region, M54.16 - Radiculopathy, lumbar region, M54.50 - Low back pain, unspecified, M54.51 - Vertebrogenic low back pain, Z98.1 - Arthrodesis status Medications: New 2 hydrocodone-acetaminophen 5-325 mg Partial Fill upon patient request. 1 tab PO BID 10 days PRN 20 tabs 0RF pain (scale score 7-10) M47.817 - Spondylosis without myelopathy or radiculopathy, lumbosacral region, M54.16 - Radiculopathy, lumbar region, M54.50 - Low back pain, unspecified, M54.51 - Vertebrogenic low back pain Coding Level of Care Code Est Pt Level 4 (37409) Diagnoses Low back pain M54.50 Spondylosis of lumbosacral region without myelopathy or radiculopathy M47.817 Spinal osteoarthritis complication: without myelopathy or radiculopathy Vertebrogenic low back pain M54.51 Lumbar radiculopathy M54.16 S/P fusion of sacroiliac joint Z98.1
[2023-08-13 14:32] VITALS: BP 126/67; PULSE 65; O2SAT 99; BMI 33.4
== END 2023-08-13 14:50 | disposition home or self-care (01) ==
PROVIDERS: PCP Family Medicine; Visit Provider Nurse Practitioner Family
DX: M54.50 Low back pain, unspecified (principal); M47.817 Spondylosis without myelopathy or radiculopathy, lumbosacral region; M54.51 Vertebrogenic low back pain; M54.16 Radiculopathy, lumbar region; Z98.1 Arthrodesis status
CPT/HCPCS: 99214

== ENCOUNTER → 2023-08-13 14:24 | Outpatient (BNVA) | payer OTHER, SELFPAY | PROVIDERS: PCP Family Medicine; Visit Provider Nurse Practitioner Family | DX: M54.16 Radiculopathy, lumbar region (principal); M54.51 Vertebrogenic low back pain; M47.817 Spondylosis without myelopathy or radiculopathy, lumbosacral region; M54.50 Low back pain, unspecified; Z98.1 Arthrodesis status | CPT/HCPCS: 99212 ==

== ENCOUNTER 2023-08-17 11:15 | Outpatient (AMB) | payer OTHER, SELFPAY ==
[2023-08-17 11:32] VITALS: BP 122/72; PULSE 53; O2SAT 97; BMI 33.5
--- NOTE | 2023-08-17 11:32 | MHC.PC.OV ---
Vital Signs 08/17/23 11:32 Height 5 ft Weight 171 lb 6 oz BMI 33.5 BP 122/72 Blood Pressure Location Lt brachial Position Sitting Pulse 53 Pulse Source Pulse Oximeter Pulse Oximetry (%) 97 Oxygen Delivery Method Room Air Intake Visit Reasons: Trans. of Care from [facility] F/U Intake Note: Patient is here to transfer care, and a blood pressure follow up, Allergies No Known Allergies Allergy (Verified 08/17/23 11:45) Medication List - Last Reconciled 08/17/23 by David Sheets MD blood pressure test kit-medium As directed clonidine HCl 0.1 mg PO BEDTIME docusate sodium (Colace) 100 mg PO BID gabapentin 600 mg PO BEDTIME 90 days hydrocodone-acetaminophen 5-325 mg 1 tab PO BID PRN 10 days lisinopril-hydrochlorothiazide 20-25 mg 1 tab PO BEDTIME 90 days metoprolol tartrate 50 mg PO BID omeprazole 20 mg PO QAM trazodone 100 mg (2 x 50 mg) PO BEDTIME Tobacco use date assessed: 08/17/23 Dental Screening Dental Screen Date: 06/26/23 HPI Trans. of Care from [facility] F/U HPI Details Transfer of Care Prior PCP:? Last office visit/CPE: Acute issue(s): Back pain ? re: Shingles PMHx: Lumbar radiculopathy, HTN, Arthritis, SurgHx: Lumbar Disc, Knee x 2, Hip. L breast bx. - neg. FHx: Mom: Cancer Dad: prostate CA Aunts DM, Cancer. GF Cancer SocHx: nonsmoker, EtOH: rare/social. PFSH Medical History Depression Obesity Low back pain History of COVID-19 Osteoarthritis Anemia GERD (gastroesophageal reflux disease) HTN (hypertension) Surgical History Hx of section H/O colonoscopy History of hip replacement History of knee replacement Family History Father No problems noted. Father Cancer AD (Alzheimer's disease) Mother Breast cancer High blood pressure Maternal Aunt Stomach cancer Social History (Reviewed 08/13/23 @ 14:31 by MICHAEL Hicks Household Members: Children and Other Housing: House Housing Other:: 2nd floor-2 family house Are you a primary career professional to a significant other at home: No Do you presently have visiting nurse or other home services: No Alcohol intake: current Alcohol intake frequency: holidays/special occasions only Patient Tobacco Use Status: Never used Tobacco e-Cigarette/Vaping Use: Never Used Second Hand Smoke Exposure: No Advance Directives Date on File: 02/24/20 service: No Current occupational status: disabled Current occupational exposures/hazards: No Cognitive needs: No Hearing needs: No Vision needs: No Questionnaire Thrive Questionnaire Date Thrive assessed: 07/17/22 VIKKI-7 AMB Questionnaire VIKKI-7 Date VIKKI - 7 assessed: 07/17/22 Source: Developed by Drs. Abrahan Maravilla, Karma Sparks, Robert Fischer and colleagues, with an educational ilan from [employer]. Review of Systems Const Denies chills, Denies fatigue, Denies fever(s), Denies headache(s) and Denies weakness ENT Denies dizziness and Denies headache(s) Card Denies dyspnea Resp Denies cough, Denies dyspnea, Denies wheezing and Denies other (shortness of breath) Musc Denies numbness and Denies tingling Neuro Denies dizziness, Denies headache(s), Denies numbness, Denies tingling and Denies weakness Psych Denies anxiety and Denies depression Endo Denies fatigue Aller/Immun Denies wheezing Physical exam (Primary Care) Vital Signs: Last Vital Signs Pulse 53 08/17/23 11:32 BP 122/72 08/17/23 11:32 Pulse Ox 97 08/17/23 11:32 Oxygen Delivery Method Room Air 08/17/23 11:32 BMI result Body Mass Index 33.5 Tobacco/Smoking Status: Tobacco use Status Tobacco use date assessed 08/17/23 08/17/23 11:48 Patient Tobacco Use Status Never used Tobacco 08/17/23 11:38 e-Cigarette/Vaping Use Never Used 08/17/23 11:38 Thrive Assessment: Date of Thrive Assessment Date Thrive assessed 07/17/22 08/17/23 11:38 Const General: well developed; No acute distress Nutritional Appearance: well nourished Orientation/consciousness: patient oriented x3 HENMT Head: Yes normocephalic and Yes atraumatic Eyes General: appearance normal, both eyes and all related structures Pupils: Equal, round and reactive pupils present EOM: EOMs intact bilaterally Resp Effort & Inspection: normal respiratory effort Auscultation: clear to auscultation bilaterally Cardio Rate: regular rate Rhythm: regular rhythm Heart sounds: S1 normal heart sound present, S2 normal heart sound present, no gallops, no murmurs and no rubs Neuro General: patient oriented x3 and gait normal Cranial nerves: Yes Equal, round and reactive pupils present Psych Affect: normal affect Assessment and Plan Assessment & Plan (1) Low back pain: Code(s): M54.50 - Low back pain, unspecified Plan: Chronic?low?back?pain/radiculitis Continue?to?follow-up?with?pain?management?as?recommended (2) Lumbar radiculopathy: Code(s): M54.16 - Radiculopathy, lumbar region Plan: As?above (3) HTN (hypertension): Code(s): I10 - Essential (primary) hypertension Plan: Blood?pressure?is?controlled.??Goal?is?less?than?140/90 Continue?current?medication?regimen (4) Immunization counseling: Code(s): Z71.85 - Encounter for immunization safety counseling Plan: Patient?inquired?about?shingles?shot?and?I?recommend?this (5) Laboratory exam ordered as part of routine general medical examination: Code(s): Z00.00 - Encounter for general adult medical examination without abnormal findings Plan: Check?labs Orders: Orders Comprehensive [place]. Panel Fast Today Z00.00 - Encounter for general adult medical examination without abnormal findings UA and rflx microscopic Today Z00.00 - Encounter for general adult medical examination without abnormal findings Lipid Panel Today Z00.00 - Encounter for general adult medical examination without abnormal findings Microalbumin, Random (w Creat) Today I10 - Essential (primary) hypertension TSH reflex Free T4 Today Z00.00 - Encounter for general adult medical examination without abnormal findings Vitamin D 25-OH Total Today E55.9 - Vitamin D deficiency, unspecified Coding Level of Care Code Est Pt Level 3 (38606) Diagnoses Low back pain M54.50 Lumbar radiculopathy M54.16 HTN (hypertension) I10 Immunization counseling Z71.85 Laboratory exam ordered as part of routine general medical examination Z00.00
== END 2023-08-17 12:23 | disposition home or self-care (01) ==
PROVIDERS: PCP Hospitalist; Visit Provider Family Medicine
DX: I10 Essential (primary) hypertension (principal); M54.50 Low back pain, unspecified; M54.16 Radiculopathy, lumbar region; Z71.85 Encounter for immunization safety counseling
CPT/HCPCS: 99213

== ENCOUNTER 2023-08-25 09:27 | Outpatient (REF) | payer OTHER, SELFPAY ==
[2023-08-25 17:23] LABS: Alanine Aminotransferase 19 U/L (0-31); Alkaline Phosphatase 80 U/L (39-117); Anion Gap 15 (12-20); Aspartate Amino Transferase 15 U/L (5-31); Bilirubin Total 0.4 mg/dL (0.0-1.0); Blood Urea Nitrogen 14 mg/dL (9-16); Calcium 9.8 mg/dL (8.4-10.2); Carbon Dioxide 25 mmol/L (22-29); Chloride 104 mmol/L (96-108); Cholesterol 273 mg/dL (<200); Estimated Glomerular Filt Rate > 60; Glucose Fasting 96 mg/dL (60-99); HDL Cholesterol 43 mg/dL (>40); LDL Cholesterol Calculated 170 mg/dL (<100); Potassium 3.7 mmol/L (3.3-5.1); Sodium 140 mmol/L (135-145); Total Protein 7.5 g/dL (6.5-8.0); Triglycerides 303 mg/dL (<150)
[2023-08-25 17:28] LABS: TSH reflex Free T4 1.62 uIU/mL (0.32-4.0); Vitamin D 25-OH Total 11.6 ng/mL (>30)
[2023-08-27 22:39] LABS: TS Negative Control Passed; TS Panel A 0; TS Panel B 0; TS Positive Control Passed; TSpotTB Negative (Negative)
== END 2023-08-25 09:28 | disposition home or self-care (01) ==
LOC: HO.WFDLDS 09:27
PROVIDERS: Visit Provider Family Medicine
DX: Z00.00 Encounter for general adult medical examination without abnormal findings (principal); E55.9 Vitamin D deficiency, unspecified; Z11.1 Encounter for screening for respiratory tuberculosis
CPT/HCPCS: 36415; 80053; 80061; 82306; 84443; 86481

== ENCOUNTER 2023-08-26 14:18 | Outpatient (AMB) | payer OTHER, SELFPAY ==
--- NOTE | 2023-08-26 14:55 | HO.SPINEOV ---
Intake Intake Visit Reasons: follow up after Pain management referral Intake Note: Ms. Waldrop is here today to F/u after pain management appointment Digital Performance Analyst Required: Yes Digital Performance Analyst Name: Tablet Allergies No Known Allergies Allergy (Verified 08/26/23 14:58) Assessment & Plan Assessment & Plan (1) Low back pain: Code(s): M54.50 - Low back pain, unspecified Plan Ledy comes in today for a subsequent follow-up appointment due to her continued low back pain. She is currently being followed by our colleagues in pain management for symptom management. Of note she was previously evaluated by the attending neurosurgeon Dr. Rene who noted no significant abnormalities on her lumbar MRI imaging. She was found to have SI joint pathology, which was corrected with an SI joint fusion. Today she states that she has been getting injections from pain management which have been intermittently helpful. They have discussed the possibility of more chronic forms of pain control. I do not believe there to be any current interventions that we would pursue in her lumbar spine in terms of surgery. I encouraged her to continue following up with our colleagues at pain management for symptom management. I answered all of her questions to the best of my ability during this visit. Total amount of time spent in this visit was 20 minutes in discussion of symptoms, MRI imaging results and subsequent plan of care Jose Rene MD,PhD [facility] Coding Level of Care Code Est Pt Level 3 (32427) Diagnoses Low back pain M54.50
== END 2023-08-26 15:17 | disposition home or self-care (01) ==
PROVIDERS: PCP Family Medicine; Visit Provider Physician Assistant
DX: M54.50 Low back pain, unspecified (principal)
CPT/HCPCS: 99213

== ENCOUNTER → 2023-08-26 14:18 | Outpatient (BNVA) | payer OTHER, SELFPAY | PROVIDERS: PCP Family Medicine; Visit Provider Physician Assistant | DX: M54.50 Low back pain, unspecified (principal) | CPT/HCPCS: 99212 ==

== ENCOUNTER 2023-08-28 07:07 | Outpatient (REF) | payer OTHER, SELFPAY ==
[2023-08-28 11:32] LABS: Appearance Urine Clear; Color Urine Yellow; Glucose Urine UA Negative (Negative); Leukocyte Esterase Urine Negative (Negative); Nitrite Urine Negative (Negative); PH 6.5 (5.0-9.0); Urine Blood Negative (Negative); Urine Ketones Negative (Negative); Urine Protein Negative (Neg-Trace)
[2023-08-28 13:06] LABS: Creatinine Urine 96.99 mg/dL; Microalbumin Urine < 5.0 mg/L
== END 2023-08-28 07:08 | disposition home or self-care (01) ==
LOC: HO.WFDLDS 07:07
PROVIDERS: Visit Provider Family Medicine
DX: Z00.00 Encounter for general adult medical examination without abnormal findings (principal); I10 Essential (primary) hypertension
CPT/HCPCS: 81003; 82043; 82570

== ENCOUNTER 2023-10-06 10:36 | Outpatient (REF) | payer OTHER, SELFPAY ==
--- NOTE | ~2023-10-06 | MM_ITS ---
EXAMINATION: MM SCREENING DIGITAL BREAST TOMOSYNTHESIS, BILATERAL CLINICAL INFORMATION: Screening. Asymptomatic. COMPARISON: Mammography: This study is compared with prior exams dating back to 2020. TECHNIQUE: Digital breast tomosynthesis is performed in both the craniocaudal and mediolateral oblique views along with computer-aided detection (CAD). Synthesized 2D images are generated from the tomosynthesis. FINDINGS: The breasts are almost entirely fatty (ACR BI-RADS breast composition Category a). There are no significant masses, abnormal calcifications, or other abnormalities. MM/MM tomosynthesis screening BI IMPRESSION: No mammographic evidence of malignancy. ASSESSMENT: BI-RADS BI-RADS 1 - Negative RECOMMENDATION: Routine annual mammography screening. 1 year F/U This examination should not preclude the clinical evaluation of a suspicious palpable abnormality. This patient's information was entered into a reminder system with a target due date for their next mammogram.
== END 2023-10-06 10:37 | disposition home or self-care (01) ==
LOC: HO.MAMMO 10:36
PROVIDERS: PCP Family Medicine; Visit Provider Family Medicine
DX: Z12.31 Encounter for screening mammogram for malignant neoplasm of breast (principal)
CPT/HCPCS: 77063; 77067

== ENCOUNTER → 2023-10-06 10:45 | Outpatient (BNV) | payer OTHER, SELFPAY | PROVIDERS: PCP Family Medicine; Visit Provider Radiology Diagnostic Radiology | DX: Z12.31 Encounter for screening mammogram for malignant neoplasm of breast (principal) | CPT/HCPCS: 77063; 77067 ==

== ENCOUNTER 2023-10-19 09:37 | Outpatient (AMB) | payer OTHER, SELFPAY ==
[2023-10-19 09:49] VITALS: BP 124/68; PULSE 59; O2SAT 97; BMI 33.4
--- NOTE | 2023-10-19 09:49 | A.OFFPC_ITS ---
Vital Signs 10/19/23 09:49 Height 5 ft Weight 171 lb 2 oz BMI 33.4 BP 124/68 Blood Pressure Location Lt brachial Pulse 59 Pulse Source Pulse Oximeter Pulse Oximetry (%) 97 Oxygen Delivery Method Room Air Intake Visit Reasons: 3 month f/u Intake Note: Patient is here for extended exam and follow up on labs. Glove Parts Cutter Required: Yes Glove Parts Cutter Name: Shon [id number] Allergies No Known Allergies Allergy (Verified 10/19/23 09:54) Medication List - Last Reconciled 10/19/23 by David Sheets MD blood pressure test kit-medium As directed cholecalciferol (vitamin D3) 1,250 mcg PO QWEEK 28 days clonidine HCl 0.1 mg PO BEDTIME docusate sodium (Colace) 100 mg PO BID gabapentin 600 mg PO BEDTIME 90 days hydrocodone-acetaminophen 5-325 mg 1 tab PO BID PRN 10 days lisinopril-hydrochlorothiazide 20-25 mg 1 tab PO BEDTIME 90 days metoprolol tartrate 50 mg PO BID omeprazole 20 mg PO QAM trazodone 100 mg (2 x 50 mg) PO BEDTIME Tobacco use date assessed: 10/19/23 Dental Screening Dental Screen Date: 06/26/23 HPI 3 month f/u HPI Details 57 y/o female presents for an extended e xam with f/u labs and health maintenance. Labs were drawn 08/25/23. Reviewed labs with pt. Triglycerides 303. TC 273. LDL 170. HDL 43. Vitamin D low at 11.6. Pt reports last mammogram about 3 weeks ago. HPI Comments History of Present Illness Details Documentation assistance for David Sheets MD, was provided by Reji Graf,? Compensation Supervisor on 10/19/2023 at 10:26 AM JORJE. I, Dr. Sheets, have read, observed, and verified documentation. [facility] Medical History (Updated 10/19/23 @ 10:40 by Reji Graf) Depression Obesity Low back pain History of COVID-19 Osteoarthritis Anemia GERD (gastroesophageal reflux disease) HTN (hypertension) Surgical History Hx of section H/O colonoscopy History of hip replacement History of knee replacement Family History Father No problems noted. Father Cancer AD (Alzheimer's disease) Mother Breast cancer High blood pressure Maternal Aunt Stomach cancer Social History Household Members: Children and Other Housing: House Housing Other:: 2nd floor-2 family house Are you a primary aged or disabled care worker to a significant other at home: No Do you presently have visiting nurse or other home services: No Alcohol intake: current Alcohol intake frequency: holidays/special occasions only Patient Tobacco Use Status: Never used Tobacco e-Cigarette/Vaping Use: Never Used Second Hand Smoke Exposure: No Advance Directives Date on File: 02/24/20 service: No Current occupational status: disabled Current occupational exposures/hazards: No Cognitive needs: No Hearing needs: No Vision needs: No Questionnaire PHQ-9 Over the last 2 weeks, how often have you been bothered by any of the following problems? 1. Little interest or pleasure in doing things: not at all 2. Feeling down, depressed, or hopeless: not at all 3. Trouble falling or staying asleep, or sleeping too much: not at all 4. Feeling tired or having little energy: not at all 5. Poor appetite or overeating: not at all 6. Feeling bad about yourself - or that you are a failure or have let yourself or your family down: not at all 7. Trouble concentrating on things, such as reading the newspaper or watching television: not at all 8. Moving or speaking so slowly that other people could have noticed. Or the opposite - being so fidgety or restless that you have been moving around a lot more than usual: not at all 9. Thoughts that you would be better off or of hurting yourself in some way: not at all Total score: 0 Depression Screening Interpretation: Negative Depression Screening Done: Yes 72250 - PHQ-9 Billing: Yes Source: Developed by Drs. Abrahan Maravilla, Karma Sparks, Robert Fischer and colleagues, with an educational ilan from [employer]. Thrive Questionnaire Date Thrive assessed: 10/19/23 I am a: Patient What is your living situation today?: I have a place to live, but I am worried about losing it in the future Within the past 12 months, did the food you bought not last and you didn't have the money to get more?: Never true Within the past 12 months, did you worry whether your food would run out before you got money to buy more?: Never true Do you have trouble paying for medicines?: Yes Do you have trouble getting transportation to medical appointments?: No Do you have trouble paying your heating and electricity bill?: No Do you have trouble taking care of your child, family member or friend?: No Do you have trouble with day-to-day activities such as bathing, preparing meals, shopping, managing finances, etc.?: Yes Are you currently unemployed and looking for a job?: Yes Are you interested in more education?: Yes THRIVE Score: 1 AUDIT C Alcohol Use Questionnaire (AUDIT-C) 1. How often do you have a drink containing alcohol?: Monthly or less 2. How many drinks containing alcohol do you have on a typical day when you are drinking?: 3 or 4 3. How often do you have six or more drinks on one occasion?: Never Total Score: 2 VIKKI-7 AMB Questionnaire VIKKI-7 Date VIKKI - 7 assessed: 10/19/23 Feeling nervous, anxious, or on edge: 0 = Not at all Not being able to stop or control worryin = Several days Worrying too much about different things: 1 = Several days Trouble relaxin = Several days Being so restless that it is hard to sit still: 1 = Several days Becoming easily annoyed or irritable: 0 = Not at all Feeling afraid as if something awful might happen: 3 = Nearly every day Total VIKKI-7 score (0-4 normal; 5-9 mild; 10-14 moderate; 15-21 severe): 7 Source: Developed by Drs. Abrahan Maravilla, Karma Sparks, Robert Fischer and colleagues, with an educational ilan from [employer]. VIKKI-7 Assessment Billing VIKKI-7 Assessment Tool: VIKKI-7 Assessment 83643 Review of Systems Const Denies chills, Denies fatigue, Denies fever(s), Denies headache(s) and Denies weakness Eyes Denies change in vision ENT Denies dizziness, Denies headache(s), Denies hearing loss, Denies nasal congestion, Denies sinus pain, Denies sinus pressure and Denies sore throat Card Denies chest pain, Denies lightheadedness, Denies dyspnea and Denies other (palpitations) Resp Denies cough, Denies dyspnea and Denies wheezing GI Denies abdominal pain, Denies melena, Denies hematochezia, Denies change in bowel habits, Denies dyspepsia and Denies nausea Denies hematuria and Denies dysuria Musc Denies abnormal gait, Denies myalgias, Denies arthralgias, Denies numbness and Denies tingling Skin/Breast Denies rash, Denies unusual bruising and Denies wounds Neuro Denies abnormal gait, Denies dizziness, Denies headache(s), Denies memory loss, Denies numbness, Denies Sensory deficit (Neuro), Denies tingling and Denies weakness Psych Denies anxiety, Denies depression and Denies memory loss Endo Denies cold intolerance, Denies fatigue, Denies heat intolerance, Denies polydipsia and Denies polyuria Heladio/Lymph Denies easy bleeding and Denies easy bruising Aller/Immun Denies wheezing Physical exam (Primary Care) Vital Signs: Last Vital Signs Pulse 59 10/19/23 09:49 BP 124/68 10/19/23 09:49 Pulse Ox 97 10/19/23 09:49 Oxygen Delivery Method Room Air 10/19/23 09:49 BMI result Body Mass Index 33.4 Tobacco/Smoking Status: Tobacco use Status Tobacco use date assessed 10/19/23 10/19/23 09:57 Patient Tobacco Use Status Never used Tobacco 10/19/23 09:49 e-Cigarette/Vaping Use Never Used 10/19/23 09:49 PHQ-9: PHQ-9 Score PHQ-9: Total score 0 10/19/23 10:08 Depression Screening Interpretation: Negative Thrive Assessment: Date of Thrive Assessment Date Thrive assessed 10/19/23 10/19/23 10:08 Const General: no acute distress, well developed, alert and awake Nutritional Appearance: well nourished Orientation/consciousness: patient oriented x3 HENMT Head: Yes normocephalic and Yes atraumatic Ears: hearing grossly normal bilaterally and TM's normal bilaterally General nose exam: Normal external nose present and Normal nares present Mouth: Normal oral and palatal mucosa present and moist mucous membranes Teeth and gingiva: dentition normal Throat: Yes posterior oropharynx normal Eyes General: appearance normal, both eyes and all related structures Pupils: Equal, round and reactive pupils present and Pupil accommodation reflex normal EOM: EOMs intact bilaterally Neck Neck: Yes normal visual inspection, Yes no lymphadenopathy and Yes trachea midline Thyroid: Thyroid normal Carotids: no bruits Lymphatic: no lymphadenopathy noted Chest Chest palpation & inspection: normal inspection of the chest Resp Effort & Inspection: normal respiratory effort Auscultation: clear to auscultation bilaterally Cardio Rate: regular rate Rhythm: regular rhythm Heart sounds: S1 normal heart sound present, S2 normal heart sound present, no gallops, no murmurs and no rubs Bruits: no abdominal aortic bruits and no carotid bruits GI Palpation (GI): No Abdominal aortic bruit present, Soft to palpation, nontender, No hepatosplenomegaly present and No Rebound tenderness present Auscultation: normal bowel sounds General: Yes no CVA tenderness Back/Spine/Pelvis Back: no CVA tenderness Cervical Spine: cervical ROM normal and No Cervical spine tenderness Thoracic/Lumbar Spine: thoraco-lumbar ROM normal, No pain with thoraco-lumbar ROM, No thoracic spinal tenderness and No lumbar spinal tenderness Skin Lesions: no lesions Rashes: no rashes Trauma: no lacerations or abrasions Wounds: no wounds Nails: normal Neuro General: patient oriented x3 Cranial nerves: Yes Equal, round and reactive pupils present Cognition (Neuro): normal cognition Gait exam (Neuro): Normal gait present Motor exam (neuro): 5/5 motor strength present throughout Sensory Exam: No Sensory deficit (Neuro) Deep tendon reflexes (DTR's): Right patellar reflex intensity grade: 2+ and Left patellar reflex intensity grade: 2+ Extrem General: Yes normal to inspection and No edema Psych Appearance: grossly normal Affect: normal affect Attitude: cooperative Thought process: Normal thought process present Assessment and Plan Assessment & Plan (1) HTN (hypertension): Code(s): I10 - Essential (primary) hypertension Plan: Blood?pressure?is?controlled.??Goal?is?less?than?140/90 Continue?current?medications (2) Hyperlipidemia: Code(s): E78.5 - Hyperlipidemia, unspecified Plan: Lipids?are?too?high. Start?rosuvastatin Will?follow-up?in?about?2?months (3) Low vitamin D level: Code(s): R79.89 - Other specified abnormal findings of blood chemistry Plan: Vitamin-D?level?was?too?low?and?she?has?completed?a?course?of?high-dose?vitamin- D Switching?her?to?daily?vitamin-D?and?we?can?check?levels?again?in?2?months (4) Screen for colon cancer: Code(s): Z12.11 - Encounter for screening for malignant neoplasm of colon Plan: Patient?had?a?colonoscopy?in?2020[place]at[place] [place]Advised?to?follow-up?in?10?years (5) Breast cancer screening by mammogram: Code(s): Z12.31 - Encounter for screening mammogram for malignant neoplasm of breast Plan: Left?breast?tenderness?at?[place]?and?radiating?around?inferior?portion?of?breast Recent?Mammogram?has?been?acquired?but?is?not?read?yet. Will?follow-up?on?mammogram Will?follow-up?on?tenderness?at?visit?in?2?months. Will?call?patient?sooner?if?indicated?by?imaging. (6) Screening for cervical cancer: Code(s): Z12.4 - Encounter for screening for malignant neoplasm of cervix Plan: Patient?gets?Pap?smears?done?at?[facility]?and?says?she?had?her?[place]?2?years?ago Advised?her?to?follow-up?with?her?physician gynecologist?as?recommended (7) Breast pain, left: Code(s): N64.4 - Mastodynia Plan: As?above (8) Adult general medical exam: Code(s): Z00.00 - Encounter for general adult medical examination without abnormal findings Plan: 57-year-old?female?presents?for?an?extended?exam Orders: Orders Lipid Panel Today E78.5 - Hyperlipidemia, unspecified, Z00.00 - Encounter for general adult medical examination without abnormal findings Vitamin D 25-OH Total Today E55.9 - Vitamin D deficiency, unspecified, R79.89 - Other specified abnormal findings of blood chemistry Comprehensive [place]. Panel Fast Today E78.5 - Hyperlipidemia, unspecified, Z00.00 - Encounter for general adult medical examination without abnormal findings Medications: New rosuvastatin 20 mg PO DAILY 90 days 90 tabs 2RF Changed From cholecalciferol (vitamin D3) 1,250 mcg PO QWEEK 28 days 4 caps 2RF To cholecalciferol (vitamin D3) 1 mcg (0.02 x 50 mcg (2,000 unit)) PO DAILY 90 days 90 caps 2RF Coding Level of Care Code Est Pt Level 4 (12809) Diagnoses HTN (hypertension) I10 Hyperlipidemia E78.5 Low vitamin D level R79.89 Screen for colon cancer Z12.11 Breast cancer screening by mammogram Z12.31 Screening for cervical cancer Z12.4 Breast pain, left N64.4 Adult general medical exam Z00.00 Additional Codes VIKKI-7 Assessment Billing - VIKKI-7 Assessment Tool: VIKKI-7 Assessment 48597 ([id number])
== END 2023-10-19 10:43 | disposition home or self-care (01) ==
PROVIDERS: PCP Family Medicine; Visit Provider Family Medicine
DX: I10 Essential (primary) hypertension (principal); E78.5 Hyperlipidemia, unspecified; R79.89 Other specified abnormal findings of blood chemistry; Z12.11 Encounter for screening for malignant neoplasm of colon; Z12.31 Encounter for screening mammogram for malignant neoplasm of breast; N64.4 Mastodynia
CPT/HCPCS: 99214

== ENCOUNTER 2023-12-25 10:01 | Outpatient (AMB) | payer OTHER, SELFPAY ==
--- NOTE | 2023-12-25 10:56 | MHC.PC.OV ---
Vital Signs 12/25/23 11:01 Height 5 ft Weight 169 lb 8 oz BMI 33.1 BP 110/65 Blood Pressure Location Lt brachial Position Sitting Respiration 16 Pulse 55 Pulse Source Pulse Oximeter Pulse Oximetry (%) 99 Oxygen Delivery Method Room Air Intake Visit Reasons: f/u labs, L breast pain Intake Note: follow up labs and left breast pain Allergies No Known Allergies Allergy (Verified 12/25/23 10:58) Tobacco use date assessed: 10/19/23 Dental Screening Dental Screen Date: 06/26/23 HPI f/u labs, L breast pain HPI Details 58 y/o female presents to f/u labs, L breast pain. No recent CPE-labs to review. She is taking rosuvastatin 20mg daily. Mammogram 10/06/23 showed no mammographic evidence of malignancy. HPI Comments History of Present Illness Details Documentation assistance for David Sheets MD, was provided by Reji Graf,? Bias Cutting Machine Operator on 12/25/2023 at 11:42 AM EST. I, Dr. Sheets, have read, observed, and verified documentation. [facility] Medical History (Updated 10/19/23 @ 10:40 by Reji Graf) Depression Obesity Low back pain History of COVID-19 Osteoarthritis Anemia GERD (gastroesophageal reflux disease) HTN (hypertension) Surgical History Hx of section H/O colonoscopy History of hip replacement History of knee replacement Family History Father No problems noted. Father Cancer AD (Alzheimer's disease) Mother Breast cancer High blood pressure Maternal Aunt Stomach cancer Social History Household Members: Children and Other Housing: House Housing Other:: 2nd floor-2 family house Are you a primary professional healthcare representative to a significant other at home: No Do you presently have visiting nurse or other home services: No Alcohol intake: current Alcohol intake frequency: holidays/special occasions only Patient Tobacco Use Status: Never used Tobacco e-Cigarette/Vaping Use: Never Used Second Hand Smoke Exposure: No Advance Directives Date on File: 02/24/20 service: No Current occupational status: disabled Current occupational exposures/hazards: No Cognitive needs: No Hearing needs: No Vision needs: No Questionnaire Thrive Questionnaire Date Thrive assessed: 10/19/23 VIKKI-7 AMB Questionnaire VIKKI-7 Date VIKKI - 7 assessed: 10/19/23 Source: Developed by Drs. Abrahan Maravilla, Karma Sparks, Robert Fischer and colleagues, with an educational ilan from [employer]. Review of Systems Const Denies chills, Denies fatigue, Denies fever(s), Denies headache(s) and Denies weakness ENT Denies dizziness and Denies headache(s) Card Denies chest pain, Denies lightheadedness, Denies dyspnea and Denies other (Palpitations) Resp Denies cough, Denies dyspnea, Denies wheezing and Denies other ( shortness of breath) Musc Denies numbness and Denies tingling Neuro Denies dizziness, Denies headache(s), Denies numbness, Denies tingling, Denies paresthesias and Denies weakness Psych Denies anxiety and Denies depression Endo Denies fatigue Aller/Immun Denies wheezing Physical exam (Primary Care) Vital Signs: Last Vital Signs Pulse 55 12/25/23 11:01 Resp 16 12/25/23 11:01 BP 110/65 12/25/23 11:01 Pulse Ox 99 12/25/23 11:01 Oxygen Delivery Method Room Air 12/25/23 11:01 BMI result Body Mass Index 33.1 Tobacco/Smoking Status: Tobacco use Status Tobacco use date assessed 10/19/23 12/25/23 11:03 Patient Tobacco Use Status Never used Tobacco 12/25/23 11:03 e-Cigarette/Vaping Use Never Used 12/25/23 11:03 Thrive Assessment: Date of Thrive Assessment Date Thrive assessed 10/19/23 12/25/23 11:03 Const General: no acute distress and well developed Nutritional Appearance: well nourished Orientation/consciousness: patient oriented x3 HENMT Head: Yes normocephalic and Yes atraumatic Eyes General: appearance normal, both eyes and all related structures Pupils: Equal, round and reactive pupils present EOM: EOMs intact bilaterally Resp Effort & Inspection: normal respiratory effort Auscultation: clear to auscultation bilaterally Cardio Rate: regular rate Rhythm: regular rhythm Heart sounds: S1 normal heart sound present, S2 normal heart sound present, no gallops, no murmurs and no rubs Neuro General: patient oriented x3 and gait normal Cranial nerves: Yes Equal, round and reactive pupils present Psych Affect: normal affect Assessment and Plan Assessment & Plan (1) Breast pain, left: Code(s): N64.4 - Mastodynia Plan: Mammogram?negative We?can?continue?annual?screening (2) Breast cancer screening by mammogram: Code(s): Z12.31 - Encounter for screening mammogram for malignant neoplasm of breast Plan: As?above (3) Hyperlipidemia: Code(s): E78.5 - Hyperlipidemia, unspecified Plan: Lipids?had?been?to?high?and?we?had?started?rosuvastatin?for?her Tolerating?this?well. She?has?not?gotten?her?labs?drawn?yet?but?will?do?so?next?Thursday I?will?call?her?if?any?action?is?required, otherwise?we?will?review?together?at?her?next?visit (4) Low vitamin D level: Code(s): R79.89 - Other specified abnormal findings of blood chemistry Plan: Vitamin-D?level?was?quite?low?and?I?had?given?her?high-dose?vitamin-D?and?then?adjusted?it?to?a?lower?daily?dose. 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
[2023-12-25 11:01] VITALS: BP 110/65; PULSE 55; RESP 16; O2SAT 99; BMI 33.1
== END 2023-12-25 11:49 | disposition home or self-care (01) ==
PROVIDERS: PCP Family Medicine; Visit Provider Family Medicine
DX: N64.4 Mastodynia (principal); Z12.31 Encounter for screening mammogram for malignant neoplasm of breast; E78.5 Hyperlipidemia, unspecified; R79.89 Other specified abnormal findings of blood chemistry
CPT/HCPCS: 99214

== ENCOUNTER 2024-02-05 09:13 | Outpatient (REF) | payer OTHER, SELFPAY ==
[2024-02-05 12:13] LABS: Alanine Aminotransferase 16 U/L (0-31); Alkaline Phosphatase 83 U/L (39-117); Anion Gap 12 (12-20); Aspartate Amino Transferase 15 U/L (5-31); Bilirubin Total 0.3 mg/dL (0.0-1.0); Blood Urea Nitrogen 17 mg/dL (9-16); Calcium 10.1 mg/dL (8.4-10.2); Carbon Dioxide 28 mmol/L (22-29); Chloride 106 mmol/L (96-108); Cholesterol 260 mg/dL (<200); Estimated Glomerular Filt Rate 53; Glucose Fasting 98 mg/dL (60-99); HDL Cholesterol 45 mg/dL (>40); LDL Cholesterol Calculated 183 mg/dL (<100); Potassium 3.7 mmol/L (3.3-5.1); Sodium 142 mmol/L (135-145); Total Protein 7.8 g/dL (6.5-8.0); Triglycerides 160 mg/dL (<150)
[2024-02-05 12:29] LABS: Vitamin D 25-OH Total 56.8 ng/mL (>30)
== END 2024-02-05 09:14 | disposition home or self-care (01) ==
LOC: HO.WFDLDS 09:13
PROVIDERS: Visit Provider Family Medicine
DX: Z00.00 Encounter for general adult medical examination without abnormal findings (principal); E78.5 Hyperlipidemia, unspecified; E55.9 Vitamin D deficiency, unspecified; R79.89 Other specified abnormal findings of blood chemistry
CPT/HCPCS: 36415; 80053; 80061; 82306

== ENCOUNTER 2024-03-24 14:49 | Outpatient (AMB) | payer OTHER, SELFPAY ==
--- NOTE | 2024-03-24 15:04 | MHC.PC.OV ---
Vital Signs 03/24/24 15:21 BP 138/76 Blood Pressure Location Lt brachial Position Sitting Pulse 60 Pulse Source Pulse Oximeter Pulse Oximetry (%) 97 Oxygen Delivery Method Room Air Intake Visit Reasons: annual pe and f/u chronic conditions Intake Note: Follow up Wrapper Counter Required: Yes Allergies No Known Allergies Allergy (Verified 03/24/24 15:06) Tobacco use date assessed: 10/19/23 Dental Screening Dental Screen Date: 06/26/23 HPI HPI Comments History of Present Illness Details This is a 58-year-old female with a past medical history of obesity, hypertension, hyperlipidemia, chronic lower back pain, anemia, GERD and vitamin-D deficiency. She was scheduled for an annual physical exam, but she had her physical in October. She has multiple concerns today. She is accompanied by her daughter. Mohawk video lang interpreter used. Patient endorses an episode of chest pain 5 or 6 days ago that started when she was watching TV. It lasted 1 and a 1/2 days. Patient says pain was mostly constant and described as pressure on her chest radiating to the base of her neck. She rated it a 7/10. She did not attempt treatment for it or go to the hospital. She says it was not exertional. She denies history of cardiac problems, but her mother, and grandfather have cardiovascular disease. Her recent LDL cholesterol was 183. She is prescribed rosuvastatin, but she is taking it 2 or maybe 3 days a week because it causes headaches. She says that she can not tolerate it. She denies having tried other cholesterol medications in the past. She gets occasional reflux. Denies abdominal pain. She is on omeprazole 20 mg daily. She denies shortness of breath. Yesterday she had a headache and felt dizzy when she got up from the breakfast table and was tired. Today the symptoms are not present. No syncope. She is taking lisinopril-hydrochlorothiazide and metoprolol for hypertension. Her systolic blood pressure is mildly elevated today. She is a nonsmoker. She drinks alcohol socially. She endorses itching on both sides of her groin for the past week. Denies open wounds. Patient also says diclofenac is not helping with her chronic lower back pain. She is also on gabapentin, and she needs a refill. ROS: Constitutional: No unexplained weight loss, fever, chills, fatigue or night sweats. Eyes: No vision changes, blurry vision, double vision Respiratory: No shortness of breath, cough or sputum production. Cardiovascular: No palpitations or pedal edema. Gastrointestinal: No anorexia, nausea, vomiting or diarrhea. No abdominal pain or blood in stool. Genitourinary: No dysuria, hematuria, urinary frequency. Hematologic/Lymphatics: No bleeding or bruising. Physical exam: Constitutional: Alert, in no distress. Eyes: Pupils are equal, round and reactive to light. Extraocular muscles intact. Neck: Supple, Full range of motion. No lymphadenopathy. No palpable thyroid masses. Respiratory: Clear to auscultation. Cardiovascular: S1 S2 regular. No murmurs. Gastrointestinal: Abdomen soft, non-tender, non-distended. Normal bowel sounds. No palpable masses. Extremities: Warm and well perfused. No clubbing, cyanosis or edema. Psychiatric: Normal mood and affect [facility] Medical History (Updated 03/24/24 @ 16:16 by PJ Oconnell) Tinea cruris Chest pain Depression Obesity Low back pain History of COVID-19 Osteoarthritis Anemia GERD (gastroesophageal reflux disease) HTN (hypertension) Surgical History Hx of section H/O colonoscopy History of hip replacement History of knee replacement Family History Father No problems noted. Father Cancer AD (Alzheimer's disease) Mother Breast cancer High blood pressure Maternal Aunt Stomach cancer Social History Household Members: Children and Other Housing: House Housing Other:: 2nd floor-2 family house Are you a primary behavioral health care manager to a significant other at home: No Do you presently have visiting nurse or other home services: No Alcohol intake: current Alcohol intake frequency: holidays/special occasions only Patient Tobacco Use Status: Never used Tobacco e-Cigarette/Vaping Use: Never Used Second Hand Smoke Exposure: No Advance Directives Date on File: 02/24/20 service: No Current occupational status: disabled Current occupational exposures/hazards: No Cognitive needs: No Hearing needs: No Vision needs: No Questionnaire PHQ-9 Over the last 2 weeks, how often have you been bothered by any of the following problems? 1. Little interest or pleasure in doing things: several days 2. Feeling down, depressed, or hopeless: more than half the days 3. Trouble falling or staying asleep, or sleeping too much: more than half the days 4. Feeling tired or having little energy: several days 5. Poor appetite or overeating: several days 6. Feeling bad about yourself - or that you are a failure or have let yourself or your family down: not at all 7. Trouble concentrating on things, such as reading the newspaper or watching television: not at all 8. Moving or speaking so slowly that other people could have noticed. Or the opposite - being so fidgety or restless that you have been moving around a lot more than usual: not at all 9. Thoughts that you would be better off or of hurting yourself in some way: not at all Total score: 7 Source: Developed by Drs. Abrahan Maravilla, Karma Sparks, Robert Fischer and colleagues, with an educational ilan from [employer]. Thrive Questionnaire Date Thrive assessed: 10/19/23 I am a: Patient What is your living situation today?: I do not have a steady places to live I am temporarily staying with others Within the past 12 months, did the food you bought not last and you didn't have the money to get more?: Never true Within the past 12 months, did you worry whether your food would run out before you got money to buy more?: Never true Do you have trouble paying for medicines?: No Do you have trouble getting transportation to medical appointments?: No Do you have trouble paying your heating and electricity bill?: No Do you have trouble taking care of your child, family member or friend?: No Do you have trouble with day-to-day activities such as bathing, preparing meals, shopping, managing finances, etc.?: No Are you currently unemployed and looking for a job?: No Are you interested in more education?: Yes Please select the resources that you would like help with: Housing/Custodial Currently or been in a relationship where the following occur: No concerns reported THRIVE Score: 1 AUDIT C Alcohol Use Questionnaire (AUDIT-C) 1. How often do you have a drink containing alcohol?: 2-4 times a month 2. How many drinks containing alcohol do you have on a typical day when you are drinking?: 3 or 4 3. How often do you have six or more drinks on one occasion?: Monthly Total Score: 5 VIKKI-7 AMB Questionnaire VIKKI-7 Date VIKKI - 7 assessed: 10/19/23 Feeling nervous, anxious, or on edge: 2 = More than half the days Not being able to stop or control worryin = Several days Worrying too much about different things: 1 = Several days Trouble relaxin = Several days Being so restless that it is hard to sit still: 0 = Not at all Becoming easily annoyed or irritable: 0 = Not at all Feeling afraid as if something awful might happen: 0 = Not at all Total VIKKI-7 score (0-4 normal; 5-9 mild; 10-14 moderate; 15-21 severe): 5 Source: Developed by Drs. Abrahan Maravilla, Karma Sparks, Robert Fischer and colleagues, with an educational ilan from [employer]. Physical exam (Primary Care) Tobacco/Smoking Status: Tobacco use Status Tobacco use date assessed 10/19/23 03/24/24 15:06 Patient Tobacco Use Status Never used Tobacco 03/24/24 15:06 e-Cigarette/Vaping Use Never Used 03/24/24 15:06 PHQ-9: PHQ-9 Score PHQ-9: Total score 7 03/24/24 15:06 Thrive Assessment: Date of Thrive Assessment Date Thrive assessed 10/19/23 03/24/24 15:06 Currently or been in a relationship where the following occur: No concerns reported Office Procedures EKG Details: EKG shows normal sinus rhythm with a heart rate of 70 beats per minute. [id number], Complete Coding Level of Care Code Est Pt Level 5 (18532) Complex EM visit Add On G2211 Diagnoses Other chest pain R07.89 Chest pain type: other chest pain Hyperlipidemia E78.5 HTN (hypertension) I10 Tinea cruris B35.6 Chronic lower back pain M54.50; G89.29 CPT Codes EKG - CPT: 88127-[id number], Complete ([id number]) Time Spent (min) 48 Comment Direct patient care and completing documentation Assessment & Plan Assessment & Plan (1) Chest pain: Code(s): R07.9 - Chest pain, unspecified Category: Medical Qualifiers: Chest pain type: other chest pain Qualified Code(s): R07.89 - Other chest pain Plan: She is asymptomatic today. She is hemodynamically stable. EKG shows no ischemic changes. No hypoxia. PE, acute pancreatitis, aneurysm rupture and ACS highly unlikely. Patient's pain was atypical however she has multiple risk factors for cardiovascular disease. Check labs including stat troponin and BNP. She will have a chest x-ray completed today. Ordered pharmacologic nuclear stress test. Advised patient if pain returns she needs to call 911 and go to the ED. (2) Hyperlipidemia: Code(s): E78.5 - Hyperlipidemia, unspecified Category: Medical Plan: Patient is not tolerating rosuvastatin. Stop rosuvastatin and switch to atorvastatin 40 mg nightly. (3) HTN (hypertension): Code(s): I10 - Essential (primary) hypertension Category: Medical Plan: Patient's blood pressure mildly elevated today. Recommended low-sodium diet and avoiding caffeine. We will schedule follow up appointment with PCP for re-evaluation. (4) Tinea cruris: Code(s): B35.6 - Tinea cruris Category: Medical Plan: Treat with topical Lotrimin. (5) Chronic lower back pain: Code(s): M54.50 - Low back pain, unspecified; G89.29 - Other chronic pain Plan: Refilled gabapentin. Stop diclofenac and switch to meloxicam 15 mg daily. Side effects of the medication reviewed with the patient. Continue PPI. Plan Follow up in 4 weeks for hypertension, hyperlipidemia, chest pain. Orders: Orders Lipase Today R07.9 - Chest pain, unspecified TSH reflex Free T4 Today R07.9 - Chest pain, unspecified XR chest 2V Today R07.9 - Chest pain, unspecified NM cardiolite stress test Today R07.9 - Chest pain, unspecified AMB EKG-In Office Today R07.9 - Chest pain, unspecified Troponin-I High Sensitivity Today R07.9 - Chest pain, unspecified Comprehensive Met. Panel Today R07.9 - Chest pain, unspecified Complete Blood Count Auto Diff Today R07.9 - Chest pain, unspecified B Type Natriuretic Peptide Today E11.9 - Type 2 diabetes mellitus without complications, R07.9 - Chest pain, unspecified CA stress test Today R07.9 - Chest pain, unspecified Medications: New atorvastatin Replaces rosuvastatin 40 mg PO BEDTIME 90 tabs 0RF meloxicam 15 mg PO DAILY 30 tabs 0RF clotrimazole 1% (Lotrimin AF (clotrimazole)) 1 appl topical TID 10 days 45 grams 0RF Refilled gabapentin take one in the afternoon or morning and then two at bedtime. 600 mg PO BEDTIME 90 days 90 tabs 2RF omeprazole 20 mg PO QAM 90 caps 1RF Discontinued rosuvastatin Discontinued Reason: Doctor's Order 20 mg PO DAILY 90 days 90 tabs 2RF Patient Instructions: Suspenda la rosuvastatina. Inicie Atorvastatina 40 mg antes de acostarse. Deje de jessica diclofenaco. Comience con Meloxicam 1 pastilla al d?a.
[2024-03-24 15:21] VITALS: BP 138/76; PULSE 60; O2SAT 97
== END 2024-03-24 16:19 | disposition home or self-care (01) ==
PROVIDERS: PCP Family Medicine; Visit Provider Physician Assistant Medical
DX: R07.89 Other chest pain (principal); E78.5 Hyperlipidemia, unspecified; I10 Essential (primary) hypertension; B35.6 Tinea cruris; M54.50 Low back pain, unspecified; G89.29 Other chronic pain

== ENCOUNTER → 2024-03-24 14:49 | Outpatient (BNVA) | payer OTHER, SELFPAY | PROVIDERS: PCP Family Medicine; Visit Provider Physician Assistant Medical | DX: R07.89 Other chest pain (principal); I10 Essential (primary) hypertension; E78.5 Hyperlipidemia, unspecified; G89.29 Other chronic pain; M54.50 Low back pain, unspecified; B35.6 Tinea cruris; Z79.899 Other long term (current) drug therapy | CPT/HCPCS: 93005; 96127; 99212 ==

== ENCOUNTER 2024-04-19 15:16 | Outpatient (REF) | payer OTHER, SELFPAY ==
[2024-04-19 17:41] LABS: MANUAL DIFF FLAG NO
[2024-04-19 17:42] LABS: Basophils Percent Auto 0.3 % (0-2); Eosinophils Absolute Auto 0.1 X10*3/uL (0.0-0.4); Eosinophils Percent Auto 1.8 % (0-4); Hematocrit 38.6 % (37.0-47.0); Hemoglobin 13.2 g/dl (12.0-16.0); Imm Gran Abs Auto 0.01 X10*3/uL (0.00-0.03); Imm Gran Pct Auto 0.2 % (0.0-0.4); Lymphocytes Absolute Auto 2.5 X10*3/uL (1.2-4.9); Lymphocytes Percent Auto 40.2 % (20-40); Mean Corpuscular HGB Conc 34.2 g/dl (31.0-35.0); Mean Corpuscular Hemoglobin 26.9 pg (27.0-33.0); Mean Corpuscular Volume 78.6 fL (80.0-98.0); Mean Platelet Volume 11.3 fL (9.4-12.3); Monocytes Absolute Auto 0.5 X10*3/uL (0.1-1.2); Monocytes Percent Auto 7.7 % (2-11); Neutrophils Absolute Auto 3.1 x10*3/uL (2.0-8.3); Neutrophils Percent Auto 49.8 % (45-73); Platelet Count 242 X10*3/uL (160-400); Red Blood Count 4.91 X10*6/uL (4.20-5.50); Red Cell Distribution Width 13.8 % (11.0-16.0); White Blood Count 6.2 X10*3/uL (4.8-10.8)
[2024-04-19 18:02] LABS: Alanine Aminotransferase 27 U/L (0-31); Albumin Level 3.7 g/dL (3.5-5.0); Alkaline Phosphatase 81 U/L (39-117); Anion Gap 12 (12-20); Aspartate Amino Transferase 22 U/L (5-31); Bilirubin Total 0.3 mg/dL (0.0-1.0); Blood Urea Nitrogen 14 mg/dL (9-16); Calcium 8.9 mg/dL (8.4-10.2); Carbon Dioxide 29 mmol/L (22-29); Chloride 104 mmol/L (96-108); Estimated Glomerular Filt Rate 58; Glucose Random 135 mg/dL (60-115); Lipase 13 U/L (8-78); Potassium 3.7 mmol/L (3.3-5.1); Sodium 141 mmol/L (135-145); Total Protein 7.2 g/dL (6.5-8.0); Troponin-I High Sensitivity < 2.7 ng/L (<3.5-17.0)
[2024-04-19 18:11] LABS: B Type Natriuretic Peptide 60 pg/mL (<100)
[2024-04-19 18:19] LABS: TSH reflex Free T4 2.16 uIU/mL (0.32-4.0)
== END 2024-04-19 15:17 | disposition home or self-care (01) ==
LOC: HO.WFDLDS 15:16
PROVIDERS: Visit Provider Physician Assistant Medical
DX: R07.9 Chest pain, unspecified (principal); E11.9 Type 2 diabetes mellitus without complications
CPT/HCPCS: 36415; 80053; 83690; 83880; 84443; 84484; 85025

== ENCOUNTER 2024-04-22 13:35 | Outpatient (AMB) | payer OTHER, SELFPAY ==
--- NOTE | 2024-04-22 14:08 | A.OFFPC_ITS ---
Vital Signs 04/22/24 14:19 Height 5 ft Weight 180 lb 8 oz BMI 35.2 BP 128/76 Blood Pressure Location Lt brachial Position Sitting Pulse 59 Pulse Source Pulse Oximeter Pulse Oximetry (%) 95 Oxygen Delivery Method Room Air Intake Visit Reasons: HTN, HLD, CP, Pain Intake Note: Follow up. Radiographer Mammographer Required: Yes Radiographer Mammographer Language: Lead Furnace Operator Name: Chelsy [id number] Allergies No Known Allergies Allergy (Verified 03/24/24 15:06) Medication List - Last Reconciled 04/22/24 by David Sheets MD atorvastatin 40 mg PO BEDTIME blood pressure test kit-medium As directed cholecalciferol (vitamin D3) 50 mcg PO DAILY 90 days clonidine HCl 0.1 mg PO BEDTIME clotrimazole 1% (Lotrimin AF (clotrimazole)) 1 appl topical TID 10 days gabapentin 600 mg PO BEDTIME 90 days hydrocodone-acetaminophen 5-325 mg 1 tab PO BID PRN 10 days lisinopril-hydrochlorothiazide 20-25 mg 1 tab PO BEDTIME 90 days meloxicam 15 mg PO DAILY metoprolol tartrate 50 mg PO BID omeprazole 20 mg PO QAM trazodone 100 mg (2 x 50 mg) PO BEDTIME Tobacco use date assessed: 04/22/24 Dental Screening Dental Screen Date: 06/26/23 Did you have a dental visit in the last 12 months?: Yes Did you have a dental problem in the last 6 months where you did not have access to dental care?: No Was dental information given to patient?: Patient has dentist HPI HTN, HLD, CP, Pain HPI Details 58 y/o female presents to f/u hypertensi on, HLD, labs. Blood pressure today 128/76, 59p. She is on lisinopril-HCTZ 20-25mg daily, metoprolol 50mg b.i.d. Labs drawn 04/19/24. Reviewed labs with pt. Lipid panel drawn 02/05/24. Triglycerides 160. TC 260. LDL 183. HDL 45. She is on artovastatin 40mg. She has an upcoming nuclear medicine stress test coming up for chest pain. [facility] Medical History (Updated 03/24/24 @ 16:16 by PJ Oconnell) Tinea cruris Chest pain Depression Obesity Low back pain History of COVID-19 Osteoarthritis Anemia GERD (gastroesophageal reflux disease) HTN (hypertension) Surgical History Hx of section H/O colonoscopy History of hip replacement History of knee replacement Family History Father No problems noted. Father Cancer AD (Alzheimer's disease) Mother Breast cancer High blood pressure Maternal Aunt Stomach cancer Social History (Updated 04/22/24 @ 14:21 by Etelvina Drake CMA) Household Members: Children and Other Housing: House Housing Other:: 2nd floor-2 family house Are you a primary tire care manager to a significant other at home: No Do you presently have visiting nurse or other home services: No Alcohol intake: current Alcohol intake frequency: holidays/special occasions only Patient Tobacco Use Status: Never used Tobacco e-Cigarette/Vaping Use: Never Used Second Hand Smoke Exposure: No Advance Directives Date on File: 02/24/20 service: No Current occupational status: disabled Current occupational exposures/hazards: No Cognitive needs: No Hearing needs: No Vision needs: No Questionnaire Thrive Questionnaire Date Thrive assessed: 03/24/24 I am a: Patient What is your living situation today?: I do not have a steady places to live I am temporarily staying with others Within the past 12 months, did the food you bought not last and you didn't have the money to get more?: Never true Within the past 12 months, did you worry whether your food would run out before you got money to buy more?: Never true Do you have trouble paying for medicines?: No Do you have trouble getting transportation to medical appointments?: No Do you have trouble paying your heating and electricity bill?: No Do you have trouble taking care of your child, family member or friend?: No Do you have trouble with day-to-day activities such as bathing, preparing meals, shopping, managing finances, etc.?: No Are you currently unemployed and looking for a job?: No Are you interested in more education?: Yes Please select the resources that you would like help with: Housing/Halfway Currently or been in a relationship where the following occur: No concerns reported THRIVE Score: 1 VIKKI-7 AMB Questionnaire VIKKI-7 Date VIKKI - 7 assessed: 10/19/23 Source: Developed by Drs. Abrahan Maravilla, Karma Sparks, Robert Fischer and colleagues, with an educational ilan from [employer]. Review of Systems Const Denies chills, Denies fatigue, Denies fever(s), Denies headache(s) and Denies weakness ENT Denies dizziness and Denies headache(s) Card Denies chest pain, Denies lightheadedness, Denies dyspnea and Denies other (Palpitations) Resp Denies cough, Denies dyspnea, Denies wheezing and Denies other ( shortness of breath) Musc Denies numbness and Denies tingling Neuro Denies dizziness, Denies headache(s), Denies numbness, Denies tingling, Denies paresthesias and Denies weakness Psych Denies anxiety and Denies depression Endo Denies fatigue Aller/Immun Denies wheezing Physical exam (Primary Care) Vital Signs: Last Vital Signs Pulse 59 04/22/24 14:19 BP 128/76 04/22/24 14:19 Pulse Ox 95 04/22/24 14:19 Oxygen Delivery Method Room Air 04/22/24 14:19 BMI result Body Mass Index 35.2 Tobacco/Smoking Status: Tobacco use Status Tobacco use date assessed 04/22/24 04/22/24 14:19 Patient Tobacco Use Status Never used Tobacco 04/22/24 14:21 e-Cigarette/Vaping Use Never Used 04/22/24 14:21 Thrive Assessment: Date of Thrive Assessment Date Thrive assessed 03/24/24 04/22/24 14:10 Currently or been in a relationship where the following occur: No concerns reported Const General: no acute distress and well developed Nutritional Appearance: well nourished Orientation/consciousness: patient oriented x3 [facility] Head: Yes normocephalic and Yes atraumatic Eyes General: appearance normal, both eyes and all related structures Pupils: Equal, round and reactive pupils present EOM: EOMs intact bilaterally Resp Effort & Inspection: normal respiratory effort Auscultation: clear to auscultation bilaterally Cardio Rate: regular rate Rhythm: regular rhythm Heart sounds: S1 normal heart sound present, S2 normal heart sound present, no gallops, no murmurs and no rubs Neuro General: patient oriented x3 and gait normal Cranial nerves: Yes Equal, round and reactive pupils present Psych Affect: normal affect Coding Level of Care Code Est Pt Level 4 (35405) Diagnoses Hypertension, essential I10 Hyperlipidemia E78.5 Other chest pain R07.89 Chest pain type: other chest pain Assessment & Plan Assessment & Plan (1) Hypertension, essential: Code(s): I10 - Essential (primary) hypertension Category: Medical Plan: Blood?pressure?is?controlled.??Goal?is?less?than?140/90 Continue?current?medications (2) Hyperlipidemia: Code(s): E78.5 - Hyperlipidemia, unspecified Category: Medical Plan: Lipids?have?been?high.??Patient?says?she?is?taking?atorvastatin?40?mg?daily. Will?have?her?get?her?labs?drawn?to?recheck?lipids. (3) Chest pain: Code(s): R07.9 - Chest pain, unspecified Category: Medical Qualifiers: Chest pain type: other chest pain Qualified Code(s): R07.89 - Other chest pain Plan: Patient?has?had?ongoing?chest?pain. Lab?work?including?H&H,?troponin?and?BNP?are?reassuring. EKG?was?unremarkable She?has?an?upcoming?stress?test?and?I?have?let?her?know?that?a?chest?x- ray?is?pending?as?well. Will?follow-up?on?these?in?the?1st?week?June.??Will? call?patient?sooner?if?action?required. Orders: Orders Lipid Panel Today R07.89 - Other chest pain, Z00.00 - Encounter for general adult medical examination without abnormal findings D Dimer High Sensitivity Today R07.89 - Other chest pain Comprehensive [place]. Panel Fast Today R07.89 - Other chest pain, Z00.00 - Encounter for general adult medical examination without abnormal findings
[2024-04-22 14:19] VITALS: BP 128/76; PULSE 59; O2SAT 95; BMI 35.2
== END 2024-04-22 14:48 | disposition home or self-care (01) ==
PROVIDERS: PCP Family Medicine; Visit Provider Family Medicine
DX: I10 Essential (primary) hypertension (principal); E78.5 Hyperlipidemia, unspecified; R07.89 Other chest pain

== ENCOUNTER → 2024-04-22 13:35 | Outpatient (BNVA) | payer OTHER, SELFPAY | PROVIDERS: PCP Family Medicine; Visit Provider Family Medicine | DX: I10 Essential (primary) hypertension (principal); E78.5 Hyperlipidemia, unspecified; R07.89 Other chest pain | CPT/HCPCS: 99212 ==

== ENCOUNTER → 2024-06-02 08:11 | Outpatient (REF) | payer OTHER, SELFPAY ==
--- NOTE | ~2024-06-02 | XR_ITS ---
EXAMINATION: XR CHEST CLINICAL INFORMATION: R07.9 - Chest pain, unspecified COMPARISON: None available. TECHNIQUE: 2 views of the chest were obtained. FINDINGS: The cardiac, hilar, and mediastinal contours are normal. The lungs are clear bilaterally. There is no pneumothorax or pleural effusion. There is no focal osseous or soft tissue abnormality. Mild degenerative right shoulder and spinal changes. XR/XR chest 2V IMPRESSION: No active pulmonary disease. Electronically signed by: Keven Guy MD 06/02/2024 10:10 AM JORJE
--- NOTE | 2024-06-02 08:15 | CA_ITS ---
Acquisition Time: 2024-06-02 08:29:11 Total Exercise Time: 00:02:00 Test Indications: CP Medications: SEE H&P Protocol: LEXISCAN Max HR: 95 BPM 59% of Pred: 160 BPM Max BP: 142/70 mmHG Max Work Load: 1.6 METS Pharmacologic Stress Test with Lexiscan while pt walks on the treadmill at 1mph, with reports of nausea, dizziness and fatigue, with isolated PVC, with normotensive response to injection. Nondiagnostic EKG for ischemia. In recovery, pt treated with IVP Aminophylline 75 mg to reverse Lexiscan, after which pt dizzinesss resolved and nausea improving. Nuclear Images poending. Test reviewed with Dr. Parker. Referred By: Blank Costello Electronically Signed By: Eliceo Stevenson
== END ==
LOC: HO.CARD 08:11
PROVIDERS: PCP Family Medicine; Visit Provider Physician Assistant Medical
DX: R07.9 Chest pain, unspecified (principal)
CPT/HCPCS: 71046; 93017; J0280; J2785

== ENCOUNTER → 2024-06-02 08:15 | Outpatient (BNV) | payer OTHER, SELFPAY | PROVIDERS: PCP Family Medicine | DX: I49.3 Ventricular premature depolarization (principal) | CPT/HCPCS: 78452; 93016; 93018 ==

== ENCOUNTER → 2024-06-02 09:33 | Outpatient (BNV) | payer OTHER, SELFPAY | PROVIDERS: PCP Family Medicine; Visit Provider Radiology Diagnostic Radiology | DX: R07.9 Chest pain, unspecified (principal) | CPT/HCPCS: 71046 ==

== ENCOUNTER 2024-06-10 11:38 | Outpatient (AMB) | payer OTHER, SELFPAY ==
--- OUTSIDE RECORDS SUMMARY | 2024-06-10 12:19 | XMS_ITS | Clinical Summary ---
Author Organization [facility] ity Address [address] [place] [address] Care Team Providers Care Subassembly Supervisor Name Role Phone Unavailable Primary Care Provider Unavailabl e Social History Tobacco Use Types Packs/Day Years Used Date Smoking Tobacco: Never Assessed Sex and Gender Information Value Date Recorded Sex Assigned at Not on file Gender Identity Not on file Sexual Orientation Not on file Plan of Treatment Health Maintenance Due Date Last Done Comments Breast Cancer Screening 1965 DTaP,Tdap,and Td Vaccines (1 - Tdap) 12/19/1982 Cervical Cancer Screening: P ap Smear 12/19/1984 Zoster Vaccines (1 of 2) 12/19/2013 Colorectal Cancer Screening: Colonoscopy 04/13/2022 Depression Screening 04/13/2022 HIV Screening 04/13/2022 Hepatitis C Screening 04/13/2022 Social Influencers of Health Screening 04/13/2022 COVID-19 Vaccine ( - 2023-2 5 season) 2024 Influenza Vaccine (#1) 2024 RSV Immunization Patients 60 + Years Old (1 - 1-dose 75+ series) 12/19/2038 HIB Vaccines Aged Out No longer eligi ble based on patient's age to complete this topic HPV Vaccines Aged Out No longer eligi ble based on patient's age to complete this topic Hepatitis A Vaccines Aged Out No long er eligible based on patient's age to complete this topic Hepatitis B Vaccines Aged Out No long er eligible based on patient's age to complete this topic IPV Vaccines Aged Out No longer eligi ble based on patient's age to complete this topic MMR Vaccines Aged Out No longer eligi ble based on patient's age to complete this topic Meningococcal ACWY Vaccine Aged Out N o longer eligible based on patient's age to complete this topic Pneumococcal Vaccine: Pediat rics (0 to 5 Years) and At-Risk Patients (6 to 64 Years) Aged Out No longer eligible b ased on patient's age to complete this topic RSV Immunization Patients Un viviana 20 months Aged Out No longer eligible b ased on patient's age to complete this topic Varicella Vaccines Aged Out No longer eligible based on patient's age to complete this topic
[2024-06-10 12:27] VITALS: BP 148/78; PULSE 60; BMI 34.4
--- NOTE | 2024-06-10 12:27 | MHC.OFFVIS ---
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 Ok per HS Cupola Melter Helper Required: Yes Cupola Melter Helper Services: Cupola Melter Helper Present Cupola Melter Helper Name: Maris [phone] Accompanied by: Self / Same As Patient Allergies No Known Allergies Allergy (Verified 03/24/24 15:06) Medication List - Last Reconciled 06/10/24 by Carlos Sampson MD aspirin (Aditi Low Dose Aspirin) 81 mg PO DAILY atorvastatin 40 mg PO BEDTIME blood pressure test kit-medium As directed cholecalciferol (vitamin D3) 50 mcg PO DAILY 90 days clonidine HCl 0.1 mg PO BEDTIME clotrimazole 1% (Lotrimin AF (clotrimazole)) 1 appl topical TID PRN gabapentin 600 mg PO BEDTIME 90 days lisinopril-hydrochlorothiazide 20-25 mg 1 tab PO BEDTIME 90 days meloxicam 15 mg PO DAILY metoprolol tartrate 50 mg PO BID omeprazole 20 mg PO QAM PRN trazodone 100 mg (2 x 50 mg) PO BEDTIME HPI Comments Details: Ledy is here for consultation regarding an abnormal stress test. Patient was apparently having chest pains and that led to a stress test. Reported to have lateral/inferior ischemia. Patient herself does not have any known cardiac issues. No prior coronary disease/myocardial infarction. She does have multiple risk factors however including diabetes, hypertension, dyslipidemia. She states that few months back she was having chest pain and after that, she has had a couple of episodes. Nonexertional pain. In fact, she does not get that during activities like walking extra. Otherwise, she states she feels good. REPLACED BY [facility] Medical History (Updated 06/07/24 @ 17:16 by PJ Oconnell) Abnormal stress test IFG (impaired fasting glucose) Tinea cruris Chest pain Depression Obesity Low back pain History of COVID-19 Osteoarthritis Anemia GERD (gastroesophageal reflux disease) HTN (hypertension) Surgical History Hx of section H/O colonoscopy History of hip replacement History of knee replacement Family History Father No problems noted. Father Cancer AD (Alzheimer's disease) Mother Breast cancer High blood pressure Maternal Aunt Stomach cancer Social History Household Members: Children and Other Housing: House Housing Other:: 2nd floor-2 family house Are you a primary critical care clinical nurse specialist to a significant other at home: No Do you presently have visiting nurse or other home services: No Alcohol intake: current Alcohol intake frequency: holidays/special occasions only Patient Tobacco Use Status: Never used Tobacco e-Cigarette/Vaping Use: Never Used Second Hand Smoke Exposure: No Advance Directives Date on File: 02/24/20 service: No Current occupational status: disabled Current occupational exposures/hazards: No Cognitive needs: No Hearing needs: No Vision needs: No Review of Systems Const Denies chills, Denies daytime sleepiness, Denies fatigue, Denies fever(s), Denies poor appetite, Denies snoring, Denies stops breathing during sleep, Denies weakness, Denies weight gain and Denies weight loss Eyes Denies loss of vision ENT Denies dizziness and Denies hearing loss Card Denies chest pain, Denies irregular heart rhythm, Denies claudication, Reports leg edema, Denies lightheadedness, Denies palpitations, Denies dyspnea on exertion and Denies orthopnea Resp Denies cough, Denies excessive phlegm production, Denies dyspnea on exertion, Denies snoring and Denies wheezing GI Denies abdominal pain, Denies hematochezia, Denies change in bowel habits, Denies nausea and Denies vomiting Denies urinary frequency and Denies dysuria Musc Denies arthralgias, Denies muscle weakness, Denies numbness and Denies other Skin/Breast Denies nail changes and Denies rash Neuro Denies Abnormal speech present, Denies dizziness, Denies loss of vision, Denies memory loss, Denies numbness and Denies weakness Psych Denies depression and Denies memory loss Endo Denies fatigue and Denies palpitations Heladio/Lymph Denies easy bruising Aller/Immun Denies wheezing Physical Exam Vital Signs: Last Vital Signs Pulse 60 06/10/24 12:27 BP 148/78 H 06/10/24 12:27 BMI result Body Mass Index 34.4 Const General: comfortable and no acute distress Orientation/consciousness: patient oriented x3 HEENT Other: Unremarkable Head: Yes normal to inspection Neck Neck: Yes normal visual inspection Chest Chest palpation & inspection: normal inspection of the chest Resp Auscultation: clear to auscultation bilaterally Cardio Palpation: normal PMI Heart sounds: S1 normal heart sound present, S2 normal heart sound present, no gallops, no murmurs and no rubs GI Palpation (GI): Soft to palpation Back/Spine/Pelvis Other: unremarkable Skin General skin exam: no rashes or lesions noted Neuro General: patient oriented x3 Speech: No Abnormal speech present Extrem General: Yes normal to inspection Psych Mental Status: mental status grossly normal Assessment & Plan Assessment & Plan (1) Chest pain: Code(s): R07.9 - Chest pain, unspecified Category: Medical Qualifiers: Chest pain type: other chest pain Qualified Code(s): R07.89 - Other chest pain (2) HTN (hypertension): Code(s): I10 - Essential (primary) hypertension Category: Medical (3) Abnormal stress test: Code(s): R94.39 - Abnormal result of other cardiovascular function study Category: Medical (4) Hyperlipidemia: Code(s): E78.5 - Hyperlipidemia, unspecified Category: Medical Plan Atypical sounding chest pain but with risk factors. Recent EKG with underlying sinus rhythm at 70/Min; no significant ST-T changes and otherwise unremarkable. Myocardial perfusion imaging study has been reported to have lateral/inferior ischemia. Images were reviewed. There is inferior/inferolateral perfusion abnormality, but with attenuation correction, there is indeed good improvement. Hence I am not clear if it is all just artifactual rather. Findings discussed with patient. As the symptoms are atypical, recommend coronary CTA. Obtain echocardiogram for cardiac function/wall motion abnormalities. Follow-up after the above. 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, R07.89 - Other chest pain CA echo transthoracic complete Today Carlos Sampson MD R07.89 - Other chest pain Basic Metabolic Panel Today Carlos Sampson MD R07.89 - Other chest pain Medications: Changed From clotrimazole 1% (Lotrimin AF (clotrimazole)) 1 appl topical TID 10 days 45 grams 0RF To clotrimazole 1% (Lotrimin AF (clotrimazole)) 1 appl topical TID PRN PJ Oconnell From omeprazole 20 mg PO QAM 90 caps 1RF To omeprazole 20 mg PO QAM PRN PJ Oconnell Coding Level of Care Code Est Pt Level 4 (05745) Diagnoses Other chest pain R07.89 Chest pain type: other chest pain HTN (hypertension) I10 Abnormal stress test R94.39 Hyperlipidemia E78.5
== END 2024-06-10 12:59 | disposition home or self-care (01) ==
PROVIDERS: PCP Family Medicine; Visit Provider Internal Medicine
DX: R07.89 Other chest pain (principal); I10 Essential (primary) hypertension; R94.39 Abnormal result of other cardiovascular function study; E78.5 Hyperlipidemia, unspecified
CPT/HCPCS: 99214

== ENCOUNTER → 2024-06-10 11:38 | Outpatient (BNVA) | payer OTHER, SELFPAY | PROVIDERS: PCP Family Medicine; Visit Provider Internal Medicine | DX: R94.39 Abnormal result of other cardiovascular function study (principal); I10 Essential (primary) hypertension; E78.5 Hyperlipidemia, unspecified; R07.89 Other chest pain; I25.10 Atherosclerotic heart disease of native coronary artery without angina pectoris | CPT/HCPCS: 99212 ==

== ENCOUNTER → 2024-06-15 15:41 | Outpatient (BNVA) | payer OTHER, SELFPAY | PROVIDERS: PCP Family Medicine; Visit Provider Family Medicine | DX: R07.89 Other chest pain (principal); R73.03 Prediabetes | CPT/HCPCS: 99212 ==

== ENCOUNTER → 2024-06-21 11:00 | Outpatient (REF) | payer OTHER, SELFPAY ==
--- NOTE | 2024-06-21 11:02 | CA_ITS ---
Transthoracic Echocardiogram Patient (Last, First, Middle): Ledy Kearns D Gender: Female Date of : 1965 Age: 58 Procedure Date: 06/21/2024 Procedure Type: Transthoracic Echocardiogram Location: OP Height: 152.4 cm Weight: 78.02 kg BSA: 1.75 m2 Heart Rate: 50 bpm BP: 130 / 75 mmHg Seamer Operator: HARSHA Strickland MD: Carlos Sampson MD Manager Operations Research: Marko Parker MD Symptoms: R07.89 - Other chest pain Study Quality: Fair ECG Rhythm: Bradycardia Conclusions: - 1. Normal LV ejection fraction 55-60% with impaired relaxation filling pattern 2. Calcific aortic valve changes noted with normal cardiac valvular Dopplers 3. Normal RV systolic pressure 4. No gross pericardial effusion Findings Left Ventricle Normal left ventricular size, thickness, and systolic function. The visually estimated ejection fraction is between 55-60%. Spectral Doppler is indicative of an impaired relaxation filling pattern. E/E prime ratio is between 8 and 15 consistent with indeterminate filling pressures. Right Ventricle Normal right ventricular cavity size and systolic function. Atria The left atrium is normal in size. There is lipomatous hypertrophy of the interatrial septum. There is no evidence of interatrial shunt. The right atrium is normal in size. Aortic Valve There is mild calcification of the aortic valve. There is no aortic valve stenosis. There is no aortic valve regurgitation. Mitral Valve Normal mitral valve structure and function. There is trace mitral valve regurgitation. There is no mitral valve stenosis. Pulmonic Valve The pulmonic valve was not well visualized. Tricuspid Valve Likely normal tricuspid valve structure and function. There is trace tricuspid valve regurgitation. The right ventricular systolic pressure is normal. The right ventricular systolic pressure is 17 mmHg. Normal right atrial pressure. There is no evidence of pulmonary hypertension. Great Vessels All visible segments of the aorta are normal in size. The pulmonary artery was not well visualized. There is no dilatation of the ascending aorta measuring 3.40 cm. Small plaque is seen in the sino tubular ridge. Venous The inferior vena cava is normal in size and collapses greater than 50% with inspiration. Pericardium/Pleural There is no evidence of pericardial effusion. Prior Study Comparison No prior study available for comparison. Measurements 2D Linear Measurements IVSd: 0.88 0.6-0.9/0.6-1.0 cm LVIDd: 3.90 3.9-5.3/4.2-5.9 cm LVIDd Index: 2.23 2.4-3.2/2.2-3.1 cm/m2 LVIDs: 2.08 2.0-3.6 cm LVPWd: 0.97 0.7-1.1 cm LA Diam: 3.30 2.7-3.8/3.0-4.0 cm LAIDs Index: 1.89 1.5-2.3 cm/m2 LV Mass: 136.85 67-162/88-224 g LV Mass Index: 78.20 43-95/49-115 g/m2 LVOT Diam: 2.10 3.0+(-)1.3 cm 2D Systolic Function EF 4C: 61.70 >55% EF 2C: 57.40 >55% EF BiP: 59.90 >55% Mitral Valve MV Pk E: 0.96 MV PK A: 0.95 MV Decel Time: 175.00 E/A: 1.00 E'Lateral: 8.49 E'Medial: 5.98 E/E' Med: 16.00 E/E' Lat: 11.30 PHT: 51.00 MVA PHT: 4.31 Decel [place]: 5.47 Aortic Valve AoV Pk Prakash: 1.39 AoV Mn Prakash: 0.97 AoV VTI: 0.33 AoV Pk Grad: 8.00 Aov Mn Grad: 4.00 ABHISHEK Cont.VTI: 2.51 LVOT LVOT Pk Prakash: 0.99 LVOT Mn Prakash: 0.67 LVOT VTI: 0.24 LVOT Pk Grad: 4.00 LVOT Mn Grad: 2.00 LVOT Diam: 2.10 LVOT Area: 3.46 Diastolic Function MV Pk E: 0.96 MV Pk A: 0.95 E/A: 1.00 E'Medial: 5.98 E/E' Med: 16.00 E' Laterial: 8.49 E/E' Lat: 11.30 Right Ventricle TAPSE (mm): 18.40 TVS' Prakash: 8.38 Tricuspid Valve TR Pk Prakash: 1.86 TR Pk Grad: 14.00 RA Press: 3.00 RVSP: 17.00 Great Vessels Aorta Sinus of Valsalva: 3.10 2.0-3.5 cm Ao Asc: 3.40 2.1-3.4 cm Ao Arch: 2.90 Pulmonary Valve PV Pk Prakash: 1.05 Peak PV Grad: 4.00 Updated in Other Vendor System with Status of Final Marko Parker MD electronically signed on 06/22/2024 2:07:43 PM with status of Final
== END ==
LOC: HO.CARD 11:00
PROVIDERS: PCP Family Medicine; Visit Provider Internal Medicine
DX: R07.89 Other chest pain (principal)
CPT/HCPCS: 93306

== ENCOUNTER → 2024-06-21 11:02 | Outpatient (BNV) | payer OTHER, SELFPAY | PROVIDERS: PCP Family Medicine; Visit Provider Internal Medicine Cardiovascular Disease | DX: I35.8 Other nonrheumatic aortic valve disorders (principal) | CPT/HCPCS: 93306 ==

== ENCOUNTER 2024-08-23 13:32 | Outpatient (AMB) | payer OTHER, SELFPAY ==
[2024-08-23 14:13] VITALS: BP 140/80; PULSE 72; BMI 34.4
--- NOTE | 2024-08-23 14:13 | A.OFFVIS_ITS ---
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: Yes Window Shade Cutter And Mounter Name: CHARLIE [id number] Allergies No Known Allergies Allergy (Verified 06/15/24 16:00) Medication List - Last Reconciled 08/23/24 by Eliceo Stevenson NP aspirin (Aditi Low Dose Aspirin) 81 mg PO DAILY atorvastatin 40 mg PO BEDTIME 90 days blood pressure test kit-medium As directed cholecalciferol (vitamin D3) 50 mcg PO DAILY 90 days clonidine HCl 0.1 mg PO BEDTIME clotrimazole 1% (Lotrimin AF (clotrimazole)) 1 appl topical TID PRN gabapentin 600 mg PO BEDTIME 90 days lisinopril-hydrochlorothiazide 20-25 mg 1 tab PO BEDTIME 90 days meloxicam 15 mg PO DAILY metoprolol tartrate 50 mg PO BID omeprazole 20 mg PO QAM PRN trazodone 100 mg (2 x 50 mg) PO BEDTIME HPI Comments Details: This is a 58-year-old female patient presenting for a follow-up visit. She was previously evaluated in the office following an abnormal stress test which had been performed by her PCP due to complaints of chest pain. Given her medical history of hypertension, hyperlipidemia, obesity, and an abnormal stress test, a coronary CTA was obtained for further assessment. Today, the patient reports feeling well overall and denies any current symptoms including exertional chest pain, shortness of breath, palpitations, dizziness, fatigue, orthopnea, PND, leg edema, presyncope, or syncope. She reports being compliant to all her medications at home. [facility] Medical History Abnormal stress test IFG (impaired fasting glucose) Tinea cruris Chest pain Depression Obesity Low back pain History of COVID-19 Osteoarthritis Anemia GERD (gastroesophageal reflux disease) HTN (hypertension) Surgical History Hx of section H/O colonoscopy History of hip replacement History of knee replacement Family History Father No problems noted. Father Cancer AD (Alzheimer's disease) Mother Breast cancer High blood pressure Maternal Aunt Stomach cancer Social History Household Members: Children and Other Housing: House Housing Other:: 2nd floor-2 family house Are you a primary disabilities caregiver to a significant other at home: No Do you presently have visiting nurse or other home services: No Alcohol intake: current Alcohol intake frequency: holidays/special occasions only Patient Tobacco Use Status: Never used Tobacco e-Cigarette/Vaping Use: Never Used Second Hand Smoke Exposure: No Advance Directives Date on File: 02/24/20 service: No Current occupational status: disabled Current occupational exposures/hazards: No Cognitive needs: No Hearing needs: No Vision needs: No Review of Systems Const Reports headache(s) and Denies weakness ENT Denies dizziness and Reports headache(s) Card Denies chest pain, Denies chest pain with activity, Denies syncope, Denies rapid heart rate, Denies pedal edema, Denies edema, Denies leg edema, Denies lightheadedness, Denies palpitations, Denies dyspnea, Denies dyspnea on exertion and Denies orthopnea Resp Denies cough, Denies dyspnea and Denies dyspnea on exertion GI Denies hematochezia and Denies change in stool character Musc Denies abnormal gait, Denies muscle cramps, Denies muscle weakness, Denies numbness, Denies radiating pain into limb and Denies tingling Neuro Denies abnormal gait, Denies dizziness, Denies syncope, Reports headache(s), Denies numbness, Denies tingling and Denies weakness Endo Denies palpitations Physical Exam Vital Signs: Last Vital Signs Pulse 72 08/23/24 14:13 BP 140/80 H 08/23/24 14:13 BMI result Body Mass Index 34.4 Const General: cooperative, healthy appearing, comfortable and no acute distress Orientation/consciousness: patient oriented x3 HEENT Head: Yes normal to inspection Neck Neck: Yes normal visual inspection, Yes trachea midline and Yes supple Chest Chest palpation & inspection: normal inspection of the chest Resp Effort & Inspection: normal respiratory effort Auscultation: clear to auscultation bilaterally, no crackles, no rales, no rhonchi and no wheezes Cardio Jugular venous distension: no JVD Palpation: normal PMI Rate: regular rate Rhythm: regular rhythm Heart sounds: S1 normal heart sound present, S2 normal heart sound present, no click, no gallops, no murmurs and no rubs Peripheral pulses: Peripheral pulses 2+ throughout GI Inspection: Yes normal to inspection Palpation (GI): Soft to palpation Auscultation: normal bowel sounds Skin General skin exam: no rashes or lesions noted Neuro General: patient oriented x3 Extrem General: Yes normal to inspection, No no pedal edema and No calf tenderness Psych Appearance: grossly normal Mental Status: mental status grossly normal Speech and movement: Normal speech and movement present Assessment & Plan Assessment & Plan (1) Abnormal stress test: Code(s): R94.39 - Abnormal result of other cardiovascular function study Category: Medical Plan: 06/02/2024-patient's myocardial perfusion imaging study showed lateral and inferior wall ischemia. Subsequently underwent coronary CTA. 06/21/2024-echo study showed normal EF 55-60% with impaired relaxation filling pattern. 08/11/2024-coronary CTA showed mixed plaque in the distal left main causing less than 25% stenosis, small calcified plaque in the proximal LAD less than 25% stenosis, small calcification in the proximal circumflex causing no stenosis, and 25-50% stenosis at the ostium with a calcified plaque. Incidentally it also showed suspicion for thymus hyperplasia for which, the report will be faxed over to her PCP's office to evaluate and discuss further. Clinically stable with no complaints of anginal symptoms. Patient's most recent LDL at 183. Patient was subsequently started on atorvastatin therapy. Continue this. We will repeat lipid panel before her next visit with a goal of LDL less than 70. (2) HTN (hypertension): Code(s): I10 - Essential (primary) hypertension Category: Medical Plan: Patient's blood pressure today is elevated. Patient is on metoprolol 50 b.i.d., lisinopril hydrochlorothiazide combination, and clonidine for this. Patient does not check her blood pressures at home. Upon rechecking her blood pressure at the office today still elevated at 142/90. We will add spironolactone low- dose to her regimen for now. We will have her return in 2 weeks to check her blood pressure with the nurse. We will also repeat labs in a month time. (3) Hyperlipidemia: Code(s): E78.5 - Hyperlipidemia, unspecified Category: Medical Plan: As above. Advised heart healthy diet, regular exercise, losing weight, med compliance, and aggressive management of her vascular risk factors. We will follow up with the patient in a month in the office. In the interim, patient will call the office with any concerns or change in symptoms. This note was generated using voice recognition software. While every effort has been made to ensure accuracy and proper implant polisher, there may be occasional errors that could affect the content or meaning of the described symptoms. Orders: Orders Basic Metabolic Panel Today I10 - Essential (primary) hypertension Lipid Panel Today E78.5 - Hyperlipidemia, unspecified Medications: New spironolactone 25 mg PO DAILY 90 tabs 1RF Coding Level of Care Code Est Pt Level 4 (46401) Complex EM visit Add On G2211 Diagnoses Abnormal stress test R94.39 HTN (hypertension) I10 Hyperlipidemia E78.5 Time Spent (min) 33 Comment Time spent in reviewing the chart, test results, assessment, counseling and documentation.
[2024-08-23 14:57] VITALS: BP 142/90
--- OUTSIDE RECORDS SUMMARY | 2024-08-23 16:36 | XMS_ITS | Clinical Summary ---
Author Organization [facility] it Address [address] [place] [address] Care Team Providers Care Cut Out Stitcher Name Role Phone Unavailable Primary Care Provider Unavailabl e Social History Tobacco Use Types Packs/Day Years Used Date Smoking Tobacco: Never Assessed Comments Unknown Sex and Gender Information Value Date Recorded Sex Assigned at Not on file Legal Sex Female 11:07 PM EST Gender Identity Not on file Sexual Orientation Not on file Plan of Treatment Health Maintenance Due Date Last Done Comments Breast Cancer Screening 1965 DTaP,Tdap,and Td Vaccines (1 - Tdap) 12/19/1982 Cervical Cancer Screening: P ap Smear 12/19/1984 Pneumococcal Vaccine: 50+ Ye ars (1 of 1 - PCV) 12/19/2013 Zoster Vaccines (1 of 2) 12/19/2013 Colorectal Cancer Screening: Colonoscopy 04/13/2022 Depression Screening 04/13/2022 HIV Screening 04/13/2022 Hepatitis C Screening 04/13/2022 Social Influencers of Health Screening 04/13/2022 COVID-19 Vaccine ( - 2023-2 5 season) 2024 Influenza Vaccine (Season Ended) 2025 RSV Immunization Adult Patie nts (1 - 1-dose 75+ series) 12/19/2038 HIB [...] patient's age to complete this topic Meningococcal B Vaccine Aged Out No l onger eligible based on patient's age to complete [...]
== END 2024-08-23 15:14 | disposition home or self-care (01) ==
LOC: HO.HCS 13:32
PROVIDERS: PCP Family Medicine
DX: R94.39 Abnormal result of other cardiovascular function study (principal); I10 Essential (primary) hypertension; E78.5 Hyperlipidemia, unspecified
CPT/HCPCS: 99214; G2211

== ENCOUNTER → 2024-08-23 13:32 | Outpatient (BNVA) | payer OTHER, SELFPAY | PROVIDERS: PCP Family Medicine | DX: I10 Essential (primary) hypertension (principal); E78.5 Hyperlipidemia, unspecified; E66.9 Obesity, unspecified; R94.39 Abnormal result of other cardiovascular function study; Z68.34 Body mass index [BMI] 34.0-34.9, adult | CPT/HCPCS: 99212 ==

== ENCOUNTER 2024-08-24 08:52 | Outpatient (REF) | payer OTHER, SELFPAY ==
--- OUTSIDE RECORDS SUMMARY | 2024-08-24 09:20 | XMS_ITS | Clinical Summary ---
Author Organization [facility] it Address [address] [place] [address] Care Team Providers Care Paper Inspector Name Role Phone Unavailable Primary Care Provider [...]
[2024-08-24 11:34] LABS: D Dimer High Sensitivity 234 NG/ML
[2024-08-24 11:52] LABS: Alanine Aminotransferase 25 U/L (0-31); Alkaline Phosphatase 82 U/L (39-117); Anion Gap 12 (12-20); Aspartate Amino Transferase 23 U/L (5-31); Bilirubin Total 0.6 mg/dL (0.0-1.0); Blood Urea Nitrogen 17 mg/dL (9-16); Calcium 10.1 mg/dL (8.4-10.2); Carbon Dioxide 28 mmol/L (22-29); Chloride 106 mmol/L (96-108); Cholesterol 223 mg/dL (<200); Estimated Glomerular Filt Rate 55; Glucose Fasting 105 mg/dL (60-99); HDL Cholesterol 43 mg/dL (>40); LDL Cholesterol Calculated 137 mg/dL (<100); Potassium 3.8 mmol/L (3.3-5.1); Sodium 142 mmol/L (135-145); Total Protein 7.5 g/dL (6.5-8.0); Triglycerides 216 mg/dL (<150)
== END 2024-08-24 08:53 | disposition home or self-care (01) ==
LOC: HO.WFDLDS 08:52
PROVIDERS: Visit Provider Family Medicine
DX: R07.89 Other chest pain (principal); R94.39 Abnormal result of other cardiovascular function study; E78.5 Hyperlipidemia, unspecified; I10 Essential (primary) hypertension; R73.03 Prediabetes; E32.9 Disease of thymus, unspecified
CPT/HCPCS: 36415; 80053; 80061; 85379; 99212

== ENCOUNTER 2024-08-24 16:07 | Outpatient (AMB) | payer OTHER, SELFPAY ==
--- NOTE | 2024-08-24 16:48 | MHC.PC.OV ---
Vital Signs 08/24/24 16:51 Height 5 ft Weight 180 lb BMI 35.2 BP 134/62 Blood Pressure Location Rt brachial Position Sitting Respiration 14 Pulse 64 Pulse Source Pulse Oximeter Temp 97.5 F Temp Source Oral Pulse Oximetry (%) 96 Oxygen Delivery Method Room Air Intake Visit Reasons: f/uchest pain, labs, elevated fasting blood sugars Intake Note: patient is scheduled for lab review Kennel Hand Required: Yes Kennel Hand Language: Plastic Shaper Name: [id number] Information Interpreted: clinical only Allergies No Known Allergies Allergy (Verified 08/24/24 16:50) Medication List - Last Reconciled 08/24/24 by David Sheets MD aspirin (Aditi Low Dose Aspirin) 81 mg PO DAILY atorvastatin 40 mg PO BEDTIME 90 days blood pressure test kit-medium As directed cholecalciferol (vitamin D3) 50 mcg PO DAILY 90 days clonidine HCl 0.1 mg PO BEDTIME clotrimazole 1% (Lotrimin AF (clotrimazole)) 1 appl topical TID PRN dapagliflozin propanediol (Farxiga) 5 mg PO QAM 90 days gabapentin 600 mg PO BEDTIME 90 days lisinopril-hydrochlorothiazide 20-25 mg 1 tab PO BEDTIME 90 days meloxicam 15 mg PO DAILY metoprolol tartrate 50 mg PO BID omeprazole 20 mg PO QAM PRN spironolactone 25 mg PO DAILY trazodone 100 mg (2 x 50 mg) PO BEDTIME Tobacco use date assessed: 04/22/24 Dental Screening Dental Screen Date: 06/26/23 HPI f/uchest pain, labs, elevated fasting blood sugars HPI Details 58 y/o female presents to f/u chest pain, pre-diabetes, hyperlipidemia. Labs drawn 08/24/24. Reviewed labs with pt. Fasting glucose of 105. Triglycerides 216. TC 223. LDL 137. HDL 43. She is on artovastatin 40mg. Followed up with Cardiology 08/23/24. Per note, 08/11/2024-coronary CTA showed mixed plaque in the distal left main causing less than 25% stenosis, small calcified plaque in the proximal LAD less than 25% stenosis, small calcification in the proximal circumflex causing no stenosis, and 25-50% stenosis at the ostium with a calcified plaque. Incidentally it also showed suspicion for thymus hyperplasia for which, the report will be faxed over to her PCP's office to evaluate and discuss further. A1c today 6.1%. [facility] Medical History Abnormal stress test IFG (impaired fasting glucose) Tinea cruris Chest pain Depression Obesity Low back pain History of COVID-19 Osteoarthritis Anemia GERD (gastroesophageal reflux disease) HTN (hypertension) Surgical History Hx of section H/O colonoscopy History of hip replacement History of knee replacement Family History Father No problems noted. Father Cancer AD (Alzheimer's disease) Mother Breast cancer High blood pressure Maternal Aunt Stomach cancer Social History Household Members: Children and Other Housing: House Housing Other:: 2nd floor-2 family house Are you a primary day care assistant to a significant other at home: No Do you presently have visiting nurse or other home services: No Alcohol intake: current Alcohol intake frequency: holidays/special occasions only Patient Tobacco Use Status: Never used Tobacco e-Cigarette/Vaping Use: Never Used Second Hand Smoke Exposure: No Advance Directives Date on File: 02/24/20 service: No Current occupational status: disabled Current occupational exposures/hazards: No Cognitive needs: No Hearing needs: No Vision needs: No Questionnaire Thrive Questionnaire Date Thrive assessed: 06/15/24 I am a: Patient What is your living situation today?: I have a steady place to live Within the past 12 months, did the food you bought not last and you didn't have the money to get more?: Never true Within the past 12 months, did you worry whether your food would run out before you got money to buy more?: Never true Do you have trouble paying for medicines?: No Do you have trouble getting transportation to medical appointments?: No Do you have trouble paying your heating and electricity bill?: No Do you have trouble taking care of your child, family member or friend?: No Do you have trouble with day-to-day activities such as bathing, preparing meals, shopping, managing finances, etc.?: No Are you currently unemployed and looking for a job?: No Are you interested in more education?: No Please select the resources that you would like help with: None Currently or been in a relationship where the following occur: I choose not to answer THRIVE Score: 0 VIKKI-7 AMB Questionnaire VIKKI-7 Date VIKKI - 7 assessed: 10/19/23 Source: Developed by Drs. Abrahan Maravilla, Karma Sparks, Robert Fischer and colleagues, with an educational ilan from [employer]. Review of Systems Const Denies chills, Denies fatigue, Denies fever(s), Denies headache(s) and Denies weakness ENT Denies dizziness and Denies headache(s) Card Denies dyspnea Resp Denies cough, Denies dyspnea, Denies wheezing and Denies other (shortness of breath) Musc Denies numbness and Denies tingling Neuro Denies dizziness, Denies headache(s), Denies numbness, Denies tingling and Denies weakness Psych Denies anxiety and Denies depression Endo Denies fatigue Aller/Immun Denies wheezing Physical exam (Primary Care) Vital Signs: Last Vital Signs Temp 97.5 F 08/24/24 16:51 Pulse 64 08/24/24 16:51 Resp 14 08/24/24 16:51 BP 134/62 08/24/24 16:51 Pulse Ox 96 08/24/24 16:51 Oxygen Delivery Method Room Air 08/24/24 16:51 BMI result Body Mass Index 35.2 Tobacco/Smoking Status: Tobacco use Status Tobacco use date assessed 04/22/24 08/24/24 16:48 Patient Tobacco Use Status Never used Tobacco 08/24/24 16:48 e-Cigarette/Vaping Use Never Used 08/24/24 16:48 Thrive Assessment: Date of Thrive Assessment Date Thrive assessed 06/15/24 08/24/24 16:48 Currently or been in a relationship where the following occur: I choose not to answer Const General: well developed; No acute distress Nutritional Appearance: well nourished and obese Orientation/consciousness: patient oriented x3 HENMT Head: Yes normocephalic and Yes atraumatic Eyes General: appearance normal, both eyes and all related structures Pupils: Equal, round and reactive pupils present EOM: EOMs intact bilaterally Resp Effort & Inspection: normal respiratory effort Neuro General: patient oriented x3 and gait normal Cranial nerves: Yes Equal, round and reactive pupils present Psych Affect: normal affect Coding Level of Care Code Est Pt Level 5 (30306) Diagnoses Abnormal stress test R94.39 Hyperlipidemia E78.5 HTN (hypertension) I10 Pre-diabetes R73.03 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 Incidentally it also showed suspicion for thymus hyperplasia for which, the report will be faxed over to her PCP's office to evaluate and discuss further. (2) Hyperlipidemia: Code(s): E78.5 - Hyperlipidemia, unspecified Category: Medical Plan: She?is?taking?atorvastatin?40?mg?daily Will?check?lipids?with?next?blood?draw (3) HTN (hypertension): Code(s): I10 - Essential (primary) hypertension Category: Medical Plan: Blood?pressure?is?near?goal?of?less?than?130/80 Cardiology?recently?added?spironolactone Continue?her?medication?regimen Work?at?diet,?exercise?and?weight?loss Will?follow (4) Pre-diabetes: Code(s): R73.03 - Prediabetes Category: Medical Plan: A1c?in?pre?diabetes?range. Patient?also?has?coronary?artery?disease May?benefit?from?Farxiga?or Jardiance Will?send?script?for?Farxiga Referred?to?nurse?navigator?for?nutritional?teaching. (5) Disease of thymus gland: Code(s): E32.9 - Disease of thymus, unspecified Plan: Incidental?substernal?nodule?or?mass?seen?on?CTA? Dedicated?CT?scan?ordered Orders: Orders Lipid Panel Today I25.10 - Atherosclerotic heart disease of [place] coronary artery without angina pectoris, Z00.00 - Encounter for general adult medical examination without abnormal findings CT chest wo IV con Today E32.9 - Disease of thymus, unspecified Comprehensive [place]. Panel Fast Today I25.10 - Atherosclerotic heart disease of [place] coronary artery without angina pectoris, Z00.00 - Encounter for general adult medical examination without abnormal findings Hemoglobin A1c Today R73.01 - Impaired fasting glucose, R73.03 - Prediabetes Referrals Nurse Navigator Referral E78.5 - Hyperlipidemia, unspecified, I25.10 - Atherosclerotic heart disease of [place] coronary artery without angina pectoris, R73.03 - Prediabetes Medications: New dapagliflozin propanediol (Farxiga) 5 mg PO QAM 90 days 90 tabs 3RF rosuvastatin 40 mg PO DAILY 90 days 90 tabs 3RF Discontinued atorvastatin Replaces rosuvastatin Discontinued Reason: Doctor's Order 40 mg PO BEDTIME 90 days 90 tabs 3RF
[2024-08-24 16:51] VITALS: BP 134/62; PULSE 64; RESP 14; TEMP 36.4; O2SAT 96; BMI 35.2
--- OUTSIDE RECORDS SUMMARY | 2024-08-24 18:13 | XMS_ITS | Clinical Summary ---
Author Organization [facility] it Address [address] [place] [address] Care Team Providers Care Shop Assistant Name Role Phone Unavailable Primary Care Provider [...]
== END 2024-08-24 17:36 | disposition home or self-care (01) ==
LOC: HO.HMCFM 16:08
PROVIDERS: PCP Family Medicine; Visit Provider Family Medicine
DX: E78.5 Hyperlipidemia, unspecified (principal); R94.39 Abnormal result of other cardiovascular function study; I10 Essential (primary) hypertension; E32.9 Disease of thymus, unspecified; R73.03 Prediabetes

== ENCOUNTER 2024-09-22 14:28 | Outpatient (AMB) | payer OTHER, SELFPAY ==
[2024-09-22 14:46] VITALS: BP 106/68; PULSE 56; BMI 34.0
--- NOTE | 2024-09-22 14:46 | MHC.OFFVIS ---
Vital Signs 09/22/24 14:46 Height 5 ft Weight 174 lb 2.643 oz BMI 34.0 BP 106/68 Blood Pressure Location Lt brachial Position Sitting Pulse 56 Pulse Source Pulse Oximeter Intake Visit Reasons: 1 mth fu bp Configuration Management Manager Required: Yes Configuration Management Manager Name: CHARLIE [id number] Allergies No Known Allergies Allergy (Verified 08/24/24 16:50) Medication List - Last Reconciled 09/22/24 by Eliceo Stevenson NP aspirin (Aditi Low Dose Aspirin) 81 mg PO DAILY blood pressure test kit-medium As directed cholecalciferol (vitamin D3) 50 mcg PO DAILY 90 days clonidine HCl 0.1 mg PO BEDTIME clotrimazole 1% (Lotrimin AF (clotrimazole)) 1 appl topical TID PRN dapagliflozin propanediol (Farxiga) 5 mg PO QAM 90 days gabapentin 600 mg PO BEDTIME 90 days lisinopril-hydrochlorothiazide 20-25 mg 1 tab PO BEDTIME 90 days meloxicam 15 mg PO DAILY metoprolol tartrate 50 mg PO BID omeprazole 20 mg PO QAM PRN rosuvastatin 40 mg PO DAILY 90 days spironolactone 25 mg PO DAILY trazodone 100 mg (2 x 50 mg) PO BEDTIME HPI Comments Details: This is a 58-year-old female patient presenting for a follow-up visit. Patient with medical history including hypertension, hyperlipidemia, obesity, and a prior abnormal stress test which was followed by a coronary CTA revealing mild coronary artery disease. At her last visit, she had elevated blood pressures and was started on spironolactone. Today, the patient reports feeling generally well. She denies any exertional chest pain, shortness of breath, palpitations, dizziness, orthopnea, PND, leg edema, presyncope, or syncope. She does report intermittent left-sided chest discomfort which is mechanical in nature triggered by lying on her side or moving her arm in certain ways. She is able to reproduce the discomfort with palpation. She does not noticed this pain with any kind of exertion. The patient reports her full compliance with her medications. [facility] Medical History Abnormal stress test IFG (impaired fasting glucose) Tinea cruris Chest pain Depression Obesity Low back pain History of COVID-19 Osteoarthritis Anemia GERD (gastroesophageal reflux disease) HTN (hypertension) Surgical History Hx of section H/O colonoscopy History of hip replacement History of knee replacement Family History Father No problems noted. Father Cancer AD (Alzheimer's disease) Mother Breast cancer High blood pressure Maternal Aunt Stomach cancer Social History Household Members: Children and Other Housing: House Housing Other:: 2nd floor-2 family house Are you a primary lead caregiver to a significant other at home: No Do you presently have visiting nurse or other home services: No Alcohol intake: current Alcohol intake frequency: holidays/special occasions only Patient Tobacco Use Status: Never used Tobacco e-Cigarette/Vaping Use: Never Used Second Hand Smoke Exposure: No Advance Directives Date on File: 02/24/20 service: No Current occupational status: disabled Current occupational exposures/hazards: No Cognitive needs: No Hearing needs: No Vision needs: No Review of Systems Const Denies weakness ENT Denies dizziness Card Denies chest pain, Denies chest pain with activity, Denies syncope, Denies rapid heart rate, Denies pedal edema, Denies edema, Denies leg edema, Denies lightheadedness, Denies palpitations, Denies dyspnea, Denies dyspnea on exertion and Denies orthopnea Resp Denies cough, Denies dyspnea and Denies dyspnea on exertion GI Denies hematochezia and Denies change in stool character Musc Denies abnormal gait, Denies muscle cramps, Denies muscle weakness, Denies numbness, Denies radiating pain into limb and Denies tingling Neuro Denies abnormal gait, Denies dizziness, Denies syncope, Denies numbness, Denies tingling and Denies weakness Endo Denies palpitations Physical Exam Vital Signs: Last Vital Signs Pulse 56 09/22/24 14:46 BP 106/68 09/22/24 14:46 BMI result Body Mass Index 34.0 Const General: cooperative, healthy appearing, comfortable and no acute distress Orientation/consciousness: patient oriented x3 HEENT Head: Yes normal to inspection Neck Neck: Yes normal visual inspection, Yes trachea midline and Yes supple Chest Chest palpation & inspection: normal inspection of the chest Resp Effort & Inspection: normal respiratory effort Auscultation: clear to auscultation bilaterally, no crackles, no rales, no rhonchi and no wheezes Cardio Jugular venous distension: no JVD Palpation: normal PMI Rate: regular rate Rhythm: regular rhythm Heart sounds: S1 normal heart sound present, S2 normal heart sound present, no click, no gallops, no murmurs and no rubs Peripheral pulses: Peripheral pulses 2+ throughout GI Inspection: Yes normal to inspection Palpation (GI): Soft to palpation Auscultation: normal bowel sounds Skin General skin exam: no rashes or lesions noted Neuro General: patient oriented x3 Extrem General: Yes normal to inspection, No no pedal edema and No calf tenderness Psych Appearance: grossly normal Mental Status: mental status grossly normal Speech and movement: Normal speech and movement present Assessment & Plan Assessment & Plan (1) Coronary artery disease: Code(s): I25.10 - Atherosclerotic heart disease of [place] coronary artery without angina pectoris Category: Medical Plan: 06/02/2024-patient's myocardial perfusion imaging study showed lateral and inferior wall ischemia. Subsequently underwent coronary CTA. 06/21/2024-echo study showed normal EF 55-60% with impaired relaxation filling pattern. 08/11/2024-coronary CTA showed mixed plaque in the distal left main causing less than 25% stenosis, small calcified plaque in the proximal LAD less than 25% stenosis, small calcification in the proximal circumflex causing no stenosis, and 25-50% stenosis at the ostium with a calcified plaque. Incidentally it also showed suspicion for thymus hyperplasia for which, the report will be faxed over to her PCP's office to evaluate and discuss further. Clinically stable with no complaints of anginal symptoms. Patient's LDL was at 183. Patient was subsequently started on atorvastatin therapy. However given her continued elevated cholesterol levels, she was switched from atorvastatin to rosuvastatin by her PCP. Continue high-dose statin therapy. We will repeat lipid panel before her next visit with a goal of LDL less than 70. (2) HTN (hypertension): Code(s): I10 - Essential (primary) hypertension Category: Medical Plan: Patient's blood pressure today is well-controlled. Continue with current regimen. Advised continuing to monitor blood pressures at home and maintaining a log of it. Ideally, blood pressure goal less than 130/80. (3) Hyperlipidemia: Code(s): E78.5 - Hyperlipidemia, unspecified Category: Medical Plan: As above. Advised heart healthy diet, regular exercise, losing weight, med compliance, and aggressive management of her vascular risk factors. We will follow up in 6 months. In the interim, patient will call the office with any concerns or change in symptoms. This note was generated using voice recognition software. While every effort has been made to ensure accuracy and proper developer support engineer, there may be occasional errors that could affect the content or meaning of the described symptoms. Orders: Orders Lipid Panel 2 Months I25.10 - Atherosclerotic heart disease of [place] coronary artery without angina pectoris Coding Level of Care Code Est Pt Level 4 (65949) Complex EM visit Add On G2211 Diagnoses Coronary artery disease I25.10 HTN (hypertension) I10 Hyperlipidemia E78.5 Time Spent (min) 34 Comment Time spent in reviewing the chart, test results, assessment, counseling and documentation.
--- OUTSIDE RECORDS SUMMARY | 2024-09-22 15:05 | XMS_ITS | Clinical Summary ---
Author Organization [facility] it Address [address] [place] [address] Care Team Providers Care Trousseau Consultant Name Role Phone Unavailable Primary Care Provider [...]
== END 2024-09-22 15:17 | disposition home or self-care (01) ==
LOC: HO.HCS 14:29
PROVIDERS: PCP Family Medicine
DX: I25.10 Atherosclerotic heart disease of native coronary artery without angina pectoris (principal); I10 Essential (primary) hypertension; E78.5 Hyperlipidemia, unspecified
CPT/HCPCS: 99214; G2211

== ENCOUNTER → 2024-09-22 14:28 | Outpatient (BNVA) | payer OTHER, SELFPAY | PROVIDERS: PCP Family Medicine | DX: I25.10 Atherosclerotic heart disease of native coronary artery without angina pectoris (principal); I10 Essential (primary) hypertension; E78.5 Hyperlipidemia, unspecified; E66.9 Obesity, unspecified; Z68.34 Body mass index [BMI] 34.0-34.9, adult | CPT/HCPCS: 99212 ==

== ENCOUNTER 2024-10-11 10:07 | Outpatient (REF) | payer OTHER, SELFPAY ==
--- OUTSIDE RECORDS SUMMARY | 2024-10-11 11:35 | XMS_ITS | Clinical Summary ---
Author Organization [facility] it Address [address] [place] [address] Care Team Providers Care Waste Management Specialist Name Role Phone Unavailable Primary Care Provider [...]
== END 2024-10-11 10:08 | disposition home or self-care (01) ==
LOC: HO.MAMMO 10:07
PROVIDERS: Visit Provider Family Medicine
DX: Z13.89 Encounter for screening for other disorder (principal)

== ENCOUNTER 2024-10-13 09:22 | Outpatient (REF) | payer OTHER, SELFPAY ==
--- OUTSIDE RECORDS SUMMARY | 2024-10-13 10:14 | XMS_ITS | Clinical Summary ---
Author Organization [facility] it Address [address] [place] [address] Care Team Providers Care Candy Polisher Name Role Phone Unavailable Primary Care Provider [...]
[2024-10-13 12:05] LABS: Estimated Average Glucose 134 mg/dL; Hemoglobin A1C 155.3408 umol/L; Hemoglobin A1c % 6.3 % (<6.0); Total Hemoglobin (HGBA1C) 3454.9109 umol/L
[2024-10-13 12:43] LABS: Alanine Aminotransferase 27 U/L (0-31); Albumin Level 4.3 g/dL (3.5-5.0); Alkaline Phosphatase 81 U/L (39-117); Anion Gap 13 (12-20); Aspartate Amino Transferase 22 U/L (5-31); Bilirubin Total 0.5 mg/dL (0.0-1.0); Blood Urea Nitrogen 29 mg/dL (9-16); Calcium 10.2 mg/dL (8.4-10.2); Carbon Dioxide 27 mmol/L (22-29); Chloride 106 mmol/L (96-108); Cholesterol 168 mg/dL (<200); Estimated Glomerular Filt Rate 33; Glucose Fasting 100 mg/dL (60-99); Glucose Random 100 mg/dL (60-115); HDL Cholesterol 37 mg/dL (>40); LDL Cholesterol Calculated 80 mg/dL (<100); Potassium 4.5 mmol/L (3.3-5.1); Sodium 141 mmol/L (135-145); Total Protein 7.5 g/dL (6.5-8.0); Triglycerides 256 mg/dL (<150)
== END 2024-10-13 09:23 | disposition home or self-care (01) ==
LOC: HO.WFDLDS 09:22
PROVIDERS: Visit Provider Family Medicine
DX: Z00.00 Encounter for general adult medical examination without abnormal findings (principal); I25.10 Atherosclerotic heart disease of native coronary artery without angina pectoris; R73.01 Impaired fasting glucose; R73.03 Prediabetes
CPT/HCPCS: 36415; 80048; 80053; 80061; 83036

== ENCOUNTER 2024-11-04 09:35 | Outpatient (AMB) | payer OTHER, SELFPAY ==
--- NOTE | 2024-11-04 09:51 | MHC.PC.OV ---
Vital Signs 11/04/24 10:01 Height 5 ft Weight 173 lb 5 oz BMI 33.8 BP 104/64 Blood Pressure Location Lt brachial Position Sitting Pulse 54 Pulse Source Pulse Oximeter Temp 97.3 F Temp Source Temporal Artery Scan Pulse Oximetry (%) 95 Oxygen Delivery Method Room Air Intake Visit Reasons: MAMOGRAM RESULTS/GOING OVER PAIN FROM [facility] Intake Note: Ledy presents in the office today for a referral for mammogram (L). Did not have it done due to pain. Was told to see PCP to get an order for an [place]. Dog License Officer Supervisor Required: Yes Dog License Officer Supervisor Name: Ada Galvez Information Interpreted: non-clinical & clinical Planning Coordinator: Not Required per policy Allergies No Known Allergies Allergy (Verified 11/04/24 09:57) Medication List - Last Reconciled 11/04/24 by David Sheets MD aspirin (Aditi Low Dose Aspirin) 81 mg PO DAILY blood pressure test kit-medium As directed cholecalciferol (vitamin D3) 50 mcg PO DAILY 90 days clonidine HCl 0.1 mg PO BEDTIME clotrimazole 1% (Lotrimin AF (clotrimazole)) 1 appl topical TID PRN dapagliflozin propanediol (Farxiga) 5 mg PO QAM 90 days gabapentin 600 mg PO BEDTIME 90 days lisinopril-hydrochlorothiazide 20-25 mg 1 tab PO BEDTIME 90 days meloxicam 15 mg PO DAILY metoprolol tartrate 50 mg PO BID omeprazole 20 mg PO QAM PRN rosuvastatin 40 mg PO DAILY 90 days spironolactone 25 mg PO DAILY trazodone 100 mg (2 x 50 mg) PO BEDTIME Tobacco use date assessed: 11/04/24 Dental Screening Dental Screen Date: 11/04/24 Did you have a dental visit in the last 12 months?: Yes Did you have a dental problem in the last 6 months where you did not have access to dental care?: No Was dental information given to patient?: Patient has dentist HPI MAMOGRAM RESULTS/GOING OVER PAIN FROM [facility] HPI Details 58 y/o female presents to f/u chronic conditions. Has been having breast pain and is requesting referral for a mammogram. She notes they did not do the mammogram before due to breast pain. Blood pressure today 104/64, 54p. She is on metoprolol 50mg b.i.d, lisinopril-HCTZ 20-25mg, spironolactone 25mg daily. Last A1c 10/13/24 6.3%. [facility] Medical History Abnormal stress test IFG (impaired fasting glucose) Tinea cruris Chest pain Depression Obesity Low back pain History of COVID-19 Osteoarthritis Anemia GERD (gastroesophageal reflux disease) HTN (hypertension) Surgical History Hx of section H/O colonoscopy History of hip replacement History of knee replacement Family History Father No problems noted. Father Cancer AD (Alzheimer's disease) Mother Breast cancer High blood pressure Maternal Aunt Stomach cancer Social History (Updated 11/04/24 @ 10:01 by Tawana Francisco MA) Household Members: Children and Other Housing: House Housing Other:: 2nd floor-2 family house Are you a primary critical care physician assistant to a significant other at home: No Do you presently have visiting nurse or other home services: No Alcohol intake: current Alcohol intake frequency: holidays/special occasions only Patient Tobacco Use Status: Never used Tobacco e-Cigarette/Vaping Use: Never Used Second Hand Smoke Exposure: No Advance Directives Date on File: 02/24/20 service: No Current occupational status: disabled Current occupational exposures/hazards: No Cognitive needs: No Hearing needs: No Vision needs: No Questionnaire Thrive Questionnaire Date Thrive assessed: 06/15/24 I am a: Patient What is your living situation today?: I have a steady place to live Within the past 12 months, did the food you bought not last and you didn't have the money to get more?: Never true Within the past 12 months, did you worry whether your food would run out before you got money to buy more?: Never true Do you have trouble paying for medicines?: No Do you have trouble getting transportation to medical appointments?: No Do you have trouble paying your heating and electricity bill?: No Do you have trouble taking care of your child, family member or friend?: No Do you have trouble with day-to-day activities such as bathing, preparing meals, shopping, managing finances, etc.?: No Are you currently unemployed and looking for a job?: No Are you interested in more education?: No Please select the resources that you would like help with: None Currently or been in a relationship where the following occur: I choose not to answer THRIVE Score: 0 VIKKI-7 AMB Questionnaire VIKKI-7 Date VIKKI - 7 assessed: 10/19/23 Source: Developed by Drs. Abrahan Maravilla, Karma Sparks, Robert Fischer and colleagues, with an educational ilan from [employer]. Physical exam (Primary Care) Vital Signs: Last Vital Signs Temp 97.3 F 11/04/24 10:01 Pulse 54 11/04/24 10:01 BP 104/64 11/04/24 10:01 Pulse Ox 95 11/04/24 10:01 Oxygen Delivery Method Room Air 11/04/24 10:01 BMI result Body Mass Index 33.8 Tobacco/Smoking Status: Tobacco use Status Tobacco use date assessed 11/04/24 11/04/24 10:05 Patient Tobacco Use Status Never used Tobacco 11/04/24 10:01 e-Cigarette/Vaping Use Never Used 11/04/24 10:01 Thrive Assessment: Date of Thrive Assessment Date Thrive assessed 06/15/24 11/04/24 09:51 Currently or been in a relationship where the following occur: I choose not to answer Chest Other: Left Breast: ? 1?cm?palpable?lump?with?tenderness?at?12?o'clock?position and 2?cm?from?nipple?areola?complex 1.5?cm?palpable?lump?with?tenderness?at?1?o'clock?position?and?5?cm?from?nipple?areola?complex 2?cm?palpable?lump?with?tenderness?at?4?o'clock?position?and?4?cm?from?nipple?areola?complex 1?cm?palpable?lump?with?tenderness?at?7?o'clock?position?and?3?cm?from?nipple?areola?complex 0.5?cm?palpable?lump?tenderness?at?10?o'clock?position?and?4?cm?from?nipple?areola?complex Coding Level of Care Code Est Pt Level 4 (84313) Diagnoses Breast pain N64.4 Mediastinal mass J98.59 Breast cancer screening by mammogram Z12.31 Coronary artery disease I25.10 Hyperlipidemia E78.5 Diabetes E11.9 Assessment & Plan Assessment & Plan (1) Breast pain: Code(s): N64.4 - Mastodynia Category: Medical Plan: Multiple?tender?lumps?at?left?breast. Patient?also?has a substernal?mass?which?will?be?evaluated?by?dedicated?CT?scan?on Thursday. Patient?was?unable?to?tolerate?mammogram Will?get?ultrasound Left Breast: ? 1?cm?palpable?lump?with?tenderness?at?12?o'clock?position and 2?cm?from?nipple?areola?complex 1.5?cm?palpable?lump?with?tenderness?at?1?o'clock?position?and?5?cm?from?nipple?areola?complex 2?cm?palpable?lump?with?tenderness?at?4?o'clock?position?and?4?cm?from?nipple?areola?complex 1?cm?palpable?lump?with?tenderness?at?7?o'clock?position?and?3?cm?from?nipple?areola?complex 0.5?cm?palpable?lump?tenderness?at?10?o'clock?position?and?4?cm?from?nipple?areola?complex (2) Mediastinal mass: Code(s): J98.59 - Other diseases of mediastinum, not elsewhere classified Category: Medical Plan: Patient?has?CT?scan?scheduled?for?Thursday (3) Breast cancer screening by mammogram: Code(s): Z12.31 - Encounter for screening mammogram for malignant neoplasm of breast Category: Medical Plan: As?above,?patient?was?unable?to?undergo?mammogram Checking?ultrasound (4) Coronary artery disease: Code(s): I25.10 - Atherosclerotic heart disease of [place] coronary artery without angina pectoris Category: Medical Plan: Stable Working?on?cholesterol?control?and?this?is?much?improved?with?switch?to?rosuvastatin Triglycerides?are?still?high?and?this?is?likely?partly?due?to?elevated?blood?sugars Working?controlling?blood?sugar?as?well-see?below (5) Hyperlipidemia: Code(s): E78.5 - Hyperlipidemia, unspecified Category: Medical Plan: Lipids?much?improved?on?rosuvastatin (6) Diabetes: Code(s): E11.9 - Type 2 diabetes mellitus without complications Category: Medical Plan: A1c?6.3%?on?Farxiga Likely?represents?early?diabetes. Continue?Farxiga?and?work?at?diet?lower?in?sugars?and?starches Orders: Orders US breast LT complete Today N63.0 - Unspecified lump in unspecified breast, N64.4 - Mastodynia
[2024-11-04 10:01] VITALS: BP 104/64; PULSE 54; TEMP 36.3; O2SAT 95; BMI 33.8
--- OUTSIDE RECORDS SUMMARY | 2024-11-04 10:02 | XMS_ITS | Clinical Summary ---
Author Organization [facility] it Address [address] [place] [address] Care Team Providers Care Wire Mesh Knitter Name Role Phone Unavailable Primary Care Provider [...]
== END 2024-11-04 11:21 | disposition home or self-care (01) ==
LOC: HO.HMCFM 09:35
PROVIDERS: PCP Family Medicine; Visit Provider Family Medicine
DX: E11.69 Type 2 diabetes mellitus with other specified complication (principal); N64.4 Mastodynia; J98.59 Other diseases of mediastinum, not elsewhere classified; Z12.31 Encounter for screening mammogram for malignant neoplasm of breast; I25.10 Atherosclerotic heart disease of native coronary artery without angina pectoris; E78.5 Hyperlipidemia, unspecified

== ENCOUNTER → 2024-11-04 09:35 | Outpatient (BNVA) | payer OTHER, SELFPAY | PROVIDERS: PCP Family Medicine; Visit Provider Family Medicine | DX: N64.4 Mastodynia (principal); J98.59 Other diseases of mediastinum, not elsewhere classified; I25.10 Atherosclerotic heart disease of native coronary artery without angina pectoris; E78.5 Hyperlipidemia, unspecified; E11.9 Type 2 diabetes mellitus without complications | CPT/HCPCS: 99212 ==

== ENCOUNTER 2024-11-07 13:53 | Outpatient (REF) | payer OTHER, SELFPAY ==
--- NOTE | ~2024-11-07 | CT_ITS ---
EXAMINATION: CT CHEST WITH IV CONTRAST INDICATION: E32.9 - Disease of thymus, unspecified COMPARISON: Correlation is made with PA and lateral views of the chest dated 06/02/2024. TECHNIQUE: Helical CT scan of the chest was performed following administration of intravenous contrast. Coronal and sagittal reformatted images were generated and reviewed. This CT exam was performed with one or more of the following dose reduction techniques: automated exposure control, adjustment of the mA and/or kV according to patient size, use of iterative reconstruction technique. DLP: 143 mGy-cm CHEST: THYROID: The thyroid is unremarkable. LUNGS: The lungs are clear. MEDIASTINUM: There is amorphous soft tissue density within the anterior mediastinum with concave the borders. A discrete soft tissue mass is not seen. There is no mediastinal lymphadenopathy. NATHAN: There is no hilar lymphadenopathy. CARDIOVASCULATURE: The heart is normal in size. There is no pericardial effusion. The thoracic aorta is normal in caliber. DEGREE OF CORONARY CALCIFICATION: mild PLEURA: There is no pleural effusion. No pneumothorax. MAIN AIRWAYS: The mainstem bronchi and proximal branches are patent. AXILLA: There is no axillary lymphadenopathy. BONES AND SOFT TISSUES: Unremarkable UPPER ABDOMEN: The visualized portions of the liver, spleen, and adrenals are unremarkable. CT/CT chest w IV con IMPRESSION: Amorphous soft tissue density in the anterior mediastinum. A discrete mass is not identified. Electronically signed by: Abrahan Dozier MD 11/07/2024 03:15 PM EDT
--- OUTSIDE RECORDS SUMMARY | 2024-11-07 14:24 | XMS_ITS | Clinical Summary ---
Author Organization [facility] it Address [address] [place] [address] Care Team Providers Care Brewery Representative Name Role Phone Unavailable Primary Care Provider [...]
[2024-11-07] MEDS: iohexoL 350 MG/ML 100 ML INFUS..BTL 65 ML IV (14:42)
== END 2024-11-07 13:54 | disposition home or self-care (01) ==
LOC: HO.CT 13:53
PROVIDERS: PCP Family Medicine; Visit Provider Family Medicine
DX: E32.9 Disease of thymus, unspecified (principal)
CPT/HCPCS: 71260; Q9967

== ENCOUNTER → 2024-11-07 13:55 | Outpatient (BNV) | payer OTHER, SELFPAY | PROVIDERS: PCP Family Medicine; Visit Provider Radiology Diagnostic Radiology | DX: J98.59 Other diseases of mediastinum, not elsewhere classified (principal) | CPT/HCPCS: 71260 ==

== ENCOUNTER 2024-11-21 09:16 | Outpatient (AMB) | payer OTHER, SELFPAY ==
--- OUTSIDE RECORDS SUMMARY | 2024-11-21 09:40 | XMS_ITS | Clinical Summary ---
Author Organization [facility] it Address [address] [place] [address] Care Team Providers Care Dinker Name Role Phone Unavailable Primary Care Provider [...] 2023-2 5 season) 2024 Influenza Vaccine (#1) 2025 RSV Immunization Adult Patie nts (1 [...] 5 Years) and At-Risk Patients (6 to 49 Years) Aged Out No longer eligible b ased on patient's age to complete this topic RSV Immunization Patients Un viviana 20 months Aged Out No longer eligible b ased on patient's age to complete this topic Varicella Vaccines Aged Out No longer eligible based on patient's age to complete this topic
--- NOTE | 2024-11-21 09:56 | MHC.PC.OV ---
Vital Signs 11/21/24 10:03 Height 5 ft Weight 178 lb 8 oz BMI 34.9 BP 100/60 Blood Pressure Location Rt brachial Position Sitting Respiration 12 Pulse 49 L Pulse Source Pulse Oximeter Temp 97.6 F Temp Source Oral Pulse Oximetry (%) 98 Oxygen Delivery Method Room Air Intake Visit Reasons: follow up breast exam/form for dis placard Intake Note: patient is scheduled to follow up on left breast pain. patient states she is currently not having pain Development Executive Required: No Allergies No Known Allergies Allergy (Verified 11/21/24 10:01) Tobacco use date assessed: 11/04/24 Dental Screening Dental Screen Date: 11/04/24 HPI follow up breast exam/form for dis placard HPI Details 58 y/o female presents today to f/u breast pain/lump. Multiple tender lumps at L breast. Pt also has substernal mass - was unable to tolerate mammogram. Chest CT 11/07/24 showed: CT/CT chest w IV con IMPRESSION: Amorphous soft tissue density in the anterior mediastinum. A discrete mass is not identified. Ongoing mild unsteady gait. [facility] Medical History Abnormal stress test IFG (impaired fasting glucose) Tinea cruris Chest pain Depression Obesity Low back pain History of COVID-19 Osteoarthritis Anemia GERD (gastroesophageal reflux disease) HTN (hypertension) Surgical History Hx of section H/O colonoscopy History of hip replacement History of knee replacement Family History Father No problems noted. Father Cancer AD (Alzheimer's disease) Mother Breast cancer High blood pressure Maternal Aunt Stomach cancer Social History (Updated 11/04/24 @ 10:01 by Tawana Francisco MA) Household Members: Children and Other Housing: House Housing Other:: 2nd floor-2 family house Are you a primary health care administrator to a significant other at home: No Do you presently have visiting nurse or other home services: No Alcohol intake: current Alcohol intake frequency: holidays/special occasions only Patient Tobacco Use Status: Never used Tobacco e-Cigarette/Vaping Use: Never Used Second Hand Smoke Exposure: No Advance Directives Date on File: 02/24/20 service: No Current occupational status: disabled Current occupational exposures/hazards: No Cognitive needs: No Hearing needs: No Vision needs: No Questionnaire Thrive Questionnaire Date Thrive assessed: 06/15/24 I am a: Patient What is your living situation today?: I have a steady place to live Within the past 12 months, did the food you bought not last and you didn't have the money to get more?: Never true Within the past 12 months, did you worry whether your food would run out before you got money to buy more?: Never true Do you have trouble paying for medicines?: No Do you have trouble getting transportation to medical appointments?: No Do you have trouble paying your heating and electricity bill?: No Do you have trouble taking care of your child, family member or friend?: No Do you have trouble with day-to-day activities such as bathing, preparing meals, shopping, managing finances, etc.?: No Are you currently unemployed and looking for a job?: No Are you interested in more education?: No Please select the resources that you would like help with: None Currently or been in a relationship where the following occur: I choose not to answer THRIVE Score: 0 VIKKI-7 AMB Questionnaire VIKKI-7 Date VIKKI - 7 assessed: 10/19/23 Source: Developed by Drs. Abrahan Maravilla, Karma Sparks, Robert Fischer and colleagues, with an educational ilan from [employer]. Review of Systems Const Denies chills, Denies fatigue, Denies fever(s), Denies headache(s) and Denies weakness ENT Denies dizziness and Denies headache(s) Card Denies dyspnea Resp Denies cough, Denies dyspnea, Denies wheezing and Denies other (shortness of breath) Musc Denies numbness and Denies tingling Neuro Denies dizziness, Denies headache(s), Denies numbness, Denies tingling and Denies weakness Psych Denies anxiety and Denies depression Endo Denies fatigue Aller/Immun Denies wheezing Physical exam (Primary Care) Vital Signs: Last Vital Signs Temp 97.6 F 11/21/24 10:03 Pulse 49 L 11/21/24 10:03 Resp 12 11/21/24 10:03 BP 100/60 11/21/24 10:03 Pulse Ox 98 11/21/24 10:03 Oxygen Delivery Method Room Air 11/21/24 10:03 BMI result Body Mass Index 34.9 Tobacco/Smoking Status: Tobacco use Status Tobacco use date assessed 11/04/24 11/21/24 09:58 Patient Tobacco Use Status Never used Tobacco 11/21/24 09:58 e-Cigarette/Vaping Use Never Used 11/21/24 09:58 Thrive Assessment: Date of Thrive Assessment Date Thrive assessed 06/15/24 11/21/24 09:58 Currently or been in a relationship where the following occur: I choose not to answer Const General: well developed; No acute distress Nutritional Appearance: well nourished Orientation/consciousness: patient oriented x3 HENMT Head: Yes normocephalic and Yes atraumatic Eyes General: appearance normal, both eyes and all related structures Pupils: Equal, round and reactive pupils present EOM: EOMs intact bilaterally Resp Effort & Inspection: normal respiratory effort Neuro General: patient oriented x3 and gait normal Cranial nerves: Yes Equal, round and reactive pupils present Psych Affect: normal affect Coding Level of Care Code Est Pt Level 4 (03971) Diagnoses Breast pain N64.4 Mediastinal mass J98.59 Spondylosis of lumbosacral region without myelopathy or radiculopathy M47.817 Spinal osteoarthritis complication: without myelopathy or radiculopathy Lumbar radiculopathy M54.16 Vertebrogenic low back pain M54.51 Unsteady gait R26.81 Assessment & Plan Assessment & Plan (1) Breast pain: Code(s): N64.4 - Mastodynia Category: Medical Plan: Patient has ongoing left-sided breast lumps and pain Had tried a mammogram previously and did not tolerate this. Ordered ultrasound but radiology requires diagnosis mammogram - as above, patient did not tolerate mammogram. Will ask is to inquire as to best path forward but I have spoken to the patient to see if she will try to tolerated diagnostic mammogram and get the ultrasound. Needs close follow-up so I will see her back the week after next. (2) Mediastinal mass: Code(s): J98.59 - Other diseases of mediastinum, not elsewhere classified Category: Medical Plan: Prior imaging had shown a mediastinal mass Recent CT scan shows Amorphous soft tissue density in the anterior mediastinum. A discrete mass is not identified. Will discuss with radiologist Will follow-up with patient by phone or her upcoming appointment. (3) Lumbosacral spondylosis: Code(s): M47.817 - Spondylosis without myelopathy or radiculopathy, lumbosacral region Category: Medical Qualifiers: Spinal osteoarthritis complication: without myelopathy or radiculopathy Qualified Code(s): M47.817 - Spondylosis without myelopathy or radiculopathy, lumbosacral region (4) Lumbar radiculopathy: Code(s): M54.16 - Radiculopathy, lumbar region Category: Medical (5) Vertebrogenic low back pain: Code(s): M54.51 - Vertebrogenic low back pain Category: Medical (6) Unsteady gait: Code(s): R26.81 - Unsteadiness on feet Category: Medical Plan Mildly unsteady gait secondary to lumbar spondylolysis and radiculopathy. Is worsened with fatigue. Advised she use her walking stick Filled out handicap placard patient Orders: Orders MM diagnostic mammo BI Today N63.0 - Unspecified lump in unspecified breast
[2024-11-21 10:03] VITALS: BP 100/60; PULSE 49; RESP 12; TEMP 36.4; O2SAT 98; BMI 34.9
== END 2024-11-21 10:52 | disposition home or self-care (01) ==
LOC: HO.HMCFM 09:17
PROVIDERS: PCP Family Medicine; Visit Provider Family Medicine
DX: N64.4 Mastodynia (principal); J98.59 Other diseases of mediastinum, not elsewhere classified; M47.817 Spondylosis without myelopathy or radiculopathy, lumbosacral region; M54.16 Radiculopathy, lumbar region; M54.51 Vertebrogenic low back pain; R26.81 Unsteadiness on feet

== ENCOUNTER → 2024-11-21 09:16 | Outpatient (BNVA) | payer OTHER, SELFPAY | PROVIDERS: PCP Family Medicine; Visit Provider Family Medicine | DX: N64.4 Mastodynia (principal); J98.59 Other diseases of mediastinum, not elsewhere classified; M47.817 Spondylosis without myelopathy or radiculopathy, lumbosacral region; M54.16 Radiculopathy, lumbar region; M54.51 Vertebrogenic low back pain; R26.81 Unsteadiness on feet | CPT/HCPCS: 99212 ==

== ENCOUNTER 2024-12-23 12:37 | Outpatient (REF) | payer OTHER, SELFPAY ==
--- NOTE | ~2024-12-23 | MM_ITS ---
EXAMINATIONS: 1. MM DIAGNOSTIC DIGITAL BREAST TOMOSYNTHESIS, BILATERAL 2. Targeted ultrasound of the left breast CLINICAL INFORMATION: Requisition: Left breast lump at 12 o'clock position with pain. According to the patient: Patient does not feel the lump today. She complains of left axillary pain for 3 months. COMPARISON: Comparison made to multiple prior, most recent October 06, 2023, and most remote June 12, 2020. TECHNIQUE: Digital breast tomosynthesis is performed in both the craniocaudal and mediolateral oblique views along with computer-aided detection (CAD). Synthesized 2D images are generated from the tomosynthesis. FINDINGS: BREAST COMPOSITION: There are scattered areas of fibroglandular density (ACR BI-RADS breast composition Category b). RIGHT BREAST: No significant masses, suspicious calcifications or other abnormalities are seen. LEFT BREAST: No significant masses, suspicious calcifications or other abnormalities are seen. In particular, no suspicious findings adjacent to the triangular skin marker placed at the level of the pain in the axilla. Targeted ultrasound of the left breast was performed at the location of the palpable concern according to the requisition. The survey performed along the 12 o'clock axis did not reveals suspicious sonographic findings. Targeted ultrasound of the left breast was performed at the location of the pain in the axillary region as indicated by the patient. No fluid collections or suspicious findings seen during the survey. MM/MM tomosynthesis diagnostic BI IMPRESSION: RIGHT BREAST: Negative, no mammographic evidence of malignancy. Normal interval follow-up is recommended in 12 months. LEFT BREAST: Negative, no evidence of malignancy. In particular, no suspicious findings to account for the patient's palpable concern or focal pain. Clinical follow-up is recommended. Otherwise, normal interval follow-up mammogram is recommended in 12 months. ASSESSMENT: BI-RADS 1 - Negative RECOMMENDATION: 1. Patient should be managed based on the clinical impression. 2. Otherwise, routine annual screening mammography. Results were provided to the patient at time of visit by the technologist. This patient's information was entered into a reminder system with a target due date for their next mammogram. Electronically signed by: Luis Alberto Caba MD 12/23/2024 03:51 PM EDT
== END 2024-12-23 12:38 | disposition home or self-care (01) ==
LOC: HO.MAMMO 12:37
PROVIDERS: PCP Family Medicine; Visit Provider Family Medicine
DX: N63.25 Unspecified lump in the left breast, overlapping quadrants (principal); N64.4 Mastodynia
CPT/HCPCS: 76642; 77062; 77066

== ENCOUNTER → 2024-12-23 13:00 | Outpatient (BNV) | payer OTHER, SELFPAY | PROVIDERS: PCP Family Medicine; Visit Provider Radiology Body Imaging | DX: N64.4 Mastodynia (principal); N63.24 Unspecified lump in the left breast, lower inner quadrant | CPT/HCPCS: 76642; 77062; 77066 ==

== ENCOUNTER 2025-01-04 09:17 | Outpatient (AMB) | payer OTHER, SELFPAY ==
--- NOTE | 2025-01-04 09:26 | MHC.PC.OV ---
Vital Signs 01/04/25 09:30 Height 5 ft Weight 175 lb 2 oz BMI 34.2 BP 101/59 L Blood Pressure Location Lt brachial Position Sitting Respiration 16 Pulse 54 Pulse Source Pulse Oximeter Temp 98.0 F Temp Source Oral Pulse Oximetry (%) 97 Oxygen Delivery Method Room Air Intake Visit Reasons: fu breast pain,Mammo results,htn,pediabetes,lipids Intake Note: patient here for follow up on breast pain, mammo results, prediabetes and lipids Graduate Teacher Education Required: Yes Graduate Teacher Education Language: Staffing Program Manager Name: [phone] Information Interpreted: non-clinical & clinical Is last menstrual period known: No Post menopausal: No Patient : No Allergies No Known Allergies Allergy (Verified 01/04/25 09:28) Medication List - Last Reconciled 01/04/25 by David Sheets MD aspirin (Aditi Low Dose Aspirin) 81 mg PO DAILY blood pressure test kit-medium As directed cholecalciferol (vitamin D3) 50 mcg PO DAILY 90 days clonidine HCl 0.1 mg PO BEDTIME clotrimazole 1% (Lotrimin AF (clotrimazole)) 1 appl topical TID PRN dapagliflozin propanediol (Farxiga) 5 mg PO QAM 90 days gabapentin 600 mg PO BEDTIME 90 days lisinopril-hydrochlorothiazide 20-25 mg 1 tab PO BEDTIME 90 days meloxicam 15 mg PO DAILY metoprolol tartrate 50 mg PO BID omeprazole 20 mg PO QAM PRN rosuvastatin 40 mg PO DAILY 90 days spironolactone 25 mg PO DAILY trazodone 100 mg (2 x 50 mg) PO BEDTIME Tobacco use date assessed: 01/04/25 Dental Screening Dental Screen Date: 01/04/25 Did you have a dental visit in the last 12 months?: Yes Did you have a dental problem in the last 6 months where you did not have access to dental care?: No Was dental information given to patient?: Patient has dentist HPI fu breast pain,Mammo results,htn,pediabetes,lipids HPI Details 59 y/o female presents to f/u breast pain. Mediastinal density seen on CT scan. No discrete ass or lymphadenopathy. Radiologist did not feel this would be related to her breast pain. BP today 101/59, 54p. She is on metoprolol 50mg b.i.d, lisinopril-hydrochlorothiazide 20-25mg, spironolactone 25mg daily. Pt notes she does feel lightheaded when standing up at times. Still reports ongoing breast pain. Complaints of R hand numbness. [facility] Medical History Abnormal stress test IFG (impaired fasting glucose) Tinea cruris Chest pain Depression Obesity Low back pain History of COVID-19 Osteoarthritis Anemia GERD (gastroesophageal reflux disease) HTN (hypertension) Surgical History Hx of section H/O colonoscopy History of hip replacement History of knee replacement Family History Father No problems noted. Father Cancer AD (Alzheimer's disease) Mother Breast cancer High blood pressure Maternal Aunt Stomach cancer Social History (Updated 11/04/24 @ 10:01 by Tawana Francisco MA) Household Members: Children and Other Housing: House Housing Other:: 2nd floor-2 family house Are you a primary career and technology education teacher to a significant other at home: No Do you presently have visiting nurse or other home services: No Alcohol intake: current Alcohol intake frequency: holidays/special occasions only Patient Tobacco Use Status: Never used Tobacco e-Cigarette/Vaping Use: Never Used Second Hand Smoke Exposure: No Advance Directives Date on File: 02/24/20 service: No Current occupational status: disabled Current occupational exposures/hazards: No Cognitive needs: No Hearing needs: No Vision needs: No Questionnaire Thrive Questionnaire Date Thrive assessed: 06/15/24 I am a: Patient What is your living situation today?: I have a steady place to live Within the past 12 months, did the food you bought not last and you didn't have the money to get more?: Never true Within the past 12 months, did you worry whether your food would run out before you got money to buy more?: Never true Do you have trouble paying for medicines?: No Do you have trouble getting transportation to medical appointments?: No Do you have trouble paying your heating and electricity bill?: No Do you have trouble taking care of your child, family member or friend?: No Do you have trouble with day-to-day activities such as bathing, preparing meals, shopping, managing finances, etc.?: No Are you currently unemployed and looking for a job?: No Are you interested in more education?: No Please select the resources that you would like help with: None Currently or been in a relationship where the following occur: I choose not to answer THRIVE Score: 0 VIKKI-7 AMB Questionnaire VIKKI-7 Date VIKKI - 7 assessed: 10/19/23 Source: Developed by Drs. Abrahan Maravilla, Karma Sparks, Robert Fischer and colleagues, with an educational ilan from [employer]. Physical exam (Primary Care) Vital Signs: Last Vital Signs Temp 98.0 F 01/04/25 09:30 Pulse 54 01/04/25 09:30 Resp 16 01/04/25 09:30 BP 101/59 L 01/04/25 09:30 Pulse Ox 97 01/04/25 09:30 Oxygen Delivery Method Room Air 01/04/25 09:30 BMI result Body Mass Index 34.2 Tobacco/Smoking Status: Tobacco use Status Tobacco use date assessed 01/04/25 01/04/25 09:30 Patient Tobacco Use Status Never used Tobacco 01/04/25 09:28 e-Cigarette/Vaping Use Never Used 01/04/25 09:28 Thrive Assessment: Date of Thrive Assessment Date Thrive assessed 06/15/24 01/04/25 09:28 Currently or been in a relationship where the following occur: I choose not to answer Coding Level of Care Code Est Pt Level 5 (30763) Diagnoses Breast pain N64.4 HTN (hypertension) I10 Breast pain, left N64.[address] R93.89 Arm pain M79.603 Numbness of right hand R20.0 Assessment & Plan Assessment & Plan (1) Breast pain: Code(s): N64.4 - Mastodynia Category: Medical (2) HTN (hypertension): Code(s): I10 - Essential (primary) hypertension Category: Medical (3) Breast pain, left: Code(s): N64.4 - Mastodynia Category: Medical (4) Abnormal chest CT: Code(s): R93.89 - Abnormal findings on diagnostic imaging of other specified body structures Category: Medical (5) Arm pain: Code(s): M79.603 - Pain in arm, unspecified Category: Medical (6) Numbness of right hand: Code(s): R20.0 - Anesthesia of skin Category: Medical Plan RIGHT BREAST: Negative, no mammographic evidence of malignancy. Normal interval follow-up is recommended in 12 months. LEFT BREAST: Negative, no evidence of malignancy. In particular, no suspicious findings to account for the patient's palpable concern or focal pain. Clinical follow-up is recommended. Otherwise, normal interval follow-up mammogram is recommended in 12 months. Patient notes pain is worse when she is wearing a bra. She will try different bras and support. NSAIDs, Ice/heat. If still having pain, will refer to surgeon There had been some concern on CT scan regarding a mediastinal opacity. Reviewed w/ Dr Dozier. No discreet mass or LAD. Blood pressure is a little low and she notes that she feels a little lightheaded when she stands up out of the car. Will decrease hydrochlorothiazide in her combo pill Patient has some paresthesia at 4th and 5th fingers of right hand. Likely compression of ulnar nerve at wrist or elbow. Occupational therapy ordered Avoid leaning or pressing on elbow or forearm Orders: Orders OT Evaluation and Treatment Today R20.0 - Anesthesia of skin Medications: New lisinopril-hydrochlorothiazide 20-12.5 mg 1 tab PO DAILY 90 tabs 3RF 90 days Discontinued lisinopril-hydrochlorothiazide 20-25 mg Discontinued Reason: Doctor's Order 1 tab PO BEDTIME 90 days 90 tabs 3RF
[2025-01-04 09:30] VITALS: BP 101/59; PULSE 54; RESP 16; TEMP 36.7; O2SAT 97; BMI 34.2
--- OUTSIDE RECORDS SUMMARY | 2025-01-04 09:50 | XMS_ITS | Clinical Summary ---
Author Organization [facility] it Address [address] [place] [address] Care Team Providers Care Early Head Start Teacher Name Role Phone Unavailable Primary Care Provider [...] 2) 12/19/2013 Colorectal Cancer Screening: Colonoscopy 04/13/2022 HIV Screening 04/13/2022 Hepatitis C Screening 04/13/2022 Social Influencers of Health Screening 04/13/2022 COVID-19 Vaccine (1 - 2023-2 5 season) 2024 Depression Screening 05/11/2024 Influenza Vaccine (#1) 2025 RSV Immunization Adult [...]
== END 2025-01-04 10:25 | disposition home or self-care (01) ==
LOC: HO.HMCFM 09:18
PROVIDERS: PCP Family Medicine; Visit Provider Family Medicine
DX: N64.4 Mastodynia (principal); I10 Essential (primary) hypertension; R93.89 Abnormal findings on diagnostic imaging of other specified body structures; M79.603 Pain in arm, unspecified; R20.0 Anesthesia of skin

== ENCOUNTER → 2025-01-04 09:17 | Outpatient (BNVA) | payer OTHER, SELFPAY | PROVIDERS: PCP Family Medicine; Visit Provider Family Medicine | DX: N64.4 Mastodynia (principal); I10 Essential (primary) hypertension; R93.89 Abnormal findings on diagnostic imaging of other specified body structures; M79.603 Pain in arm, unspecified; R20.0 Anesthesia of skin; R42 Dizziness and giddiness; Z79.899 Other long term (current) drug therapy | CPT/HCPCS: 99212 ==

== ENCOUNTER 2025-03-03 08:12 | Outpatient (REF) | payer OTHER, SELFPAY ==
--- OUTSIDE RECORDS SUMMARY | 2025-03-03 08:27 | XMS_ITS | Clinical Summary ---
Author Organization [facility] ity Address [address] [place] [address] Care Team Providers Care Strainer Mill Operator Name Role Phone Unavailable Primary Care Provider [...] Last Done Comments Breast Cancer Screening 1965 Colorectal Cancer Screening: Colonoscopy 1965 DTaP,Tdap,and Td Vaccines (1 - Tdap) 12/19/1982 Cervical Cancer Screening: P ap Smear 12/19/1984 Pneumococcal Vaccine: 50+ Ye ars (1 of 1 - PCV) 12/19/2013 Zoster Vaccines (1 of 2) 12/19/2013 HIV Screening 04/13/2022 Hepatitis C Screening 04/13/2022 Social Influencers of Health Screening 04/13/2022 Depression Screening 05/11/2024 COVID-19 Vaccine (1 - 2023-2 5 season) 2025 Influenza Vaccine (#1) 2025 RSV Immunization Adult [...]
[2025-03-03 09:44] LABS: Anion Gap 12 (12-20); Blood Urea Nitrogen 20 mg/dL (9-16); Calcium 10.0 mg/dL (8.4-10.2); Carbon Dioxide 27 mmol/L (22-29); Chloride 108 mmol/L (96-108); Cholesterol 253 mg/dL (<200); Estimated Glomerular Filt Rate 41; HDL Cholesterol 38 mg/dL (>40); Potassium 4.3 mmol/L (3.3-5.1); Sodium 143 mmol/L (135-145); Triglycerides 344 mg/dL (<150)
== END 2025-03-03 08:13 | disposition home or self-care (01) ==
LOC: HO.LAB 08:12
PROVIDERS: PCP Family Medicine
DX: I10 Essential (primary) hypertension (principal); I25.10 Atherosclerotic heart disease of native coronary artery without angina pectoris
CPT/HCPCS: 36415; 80048; 80061

== ENCOUNTER 2025-03-07 10:25 | Outpatient (AMB) | payer OTHER, SELFPAY ==
--- NOTE | 2025-03-07 10:43 | MHC.PC.OV ---
Vital Signs 03/07/25 10:44 Height 5 ft Weight 177 lb BMI 34.6 BP 104/64 Blood Pressure Location Rt brachial Position Sitting Respiration 14 Pulse 49 L Pulse Source Pulse Oximeter Pulse Oximetry (%) 97 Oxygen Delivery Method Room Air Intake Visit Reasons: f/u HTN, HDL and chronic conditions Intake Note: Follow up Retail Marketing Manager Required: Yes Retail Marketing Manager Language: Technical Services Consultant Name: [id number] Allergies No Known Allergies Allergy (Verified 03/07/25 10:46) Tobacco use date assessed: 01/04/25 Dental Screening Dental Screen Date: 01/04/25 HPI f/u HTN, HDL and chronic conditions HPI Details 59 y/o female presents to f/u HTN, HLD. Blood pressure today 102/64, 49p. She is on lisinopril-hydrochlorothiazide 20-12.5mg daily, metoprolol 50mg b.i.d, spironolactone 25mg daily. BP had been in the lower end before. Pt notes ongoing weakness/fatigue in the morning. Labs drawn 03/03/25. Reviewed labs with pt. Triglycerides 344. TC 253. LDL 147. HDL low at 38. Pt notes she had discontinued some of her meds including spironolactone, bupropion. A1c today 6.3%. She is on Farxiga. Reports ongoing back pain. [facility] Medical History Abnormal stress test IFG (impaired fasting glucose) Tinea cruris Chest pain Depression Obesity Low back pain History of COVID-19 Osteoarthritis Anemia GERD (gastroesophageal reflux disease) HTN (hypertension) Surgical History Hx of section H/O colonoscopy History of hip replacement History of knee replacement Family History Father No problems noted. Father Cancer AD (Alzheimer's disease) Mother Breast cancer High blood pressure Maternal Aunt Stomach cancer Social History (Updated 11/04/24 @ 10:01 by Tawana Francisco MA) Household Members: Children and Other Housing: House Housing Other:: 2nd floor-2 family house Are you a primary childcare director to a significant other at home: No Do you presently have visiting nurse or other home services: No Alcohol intake: current Alcohol intake frequency: holidays/special occasions only Patient Tobacco Use Status: Never used Tobacco e-Cigarette/Vaping Use: Never Used Second Hand Smoke Exposure: No Advance Directives Date on File: 02/24/20 service: No Current occupational status: disabled Current occupational exposures/hazards: No Cognitive needs: No Hearing needs: No Vision needs: No Questionnaire Thrive Questionnaire Date Thrive assessed: 06/15/24 I am a: Patient What is your living situation today?: I have a steady place to live Within the past 12 months, did the food you bought not last and you didn't have the money to get more?: Never true Within the past 12 months, did you worry whether your food would run out before you got money to buy more?: Never true Do you have trouble paying for medicines?: No Do you have trouble getting transportation to medical appointments?: No Do you have trouble paying your heating and electricity bill?: No Do you have trouble taking care of your child, family member or friend?: No Do you have trouble with day-to-day activities such as bathing, preparing meals, shopping, managing finances, etc.?: No Are you currently unemployed and looking for a job?: No Are you interested in more education?: No Please select the resources that you would like help with: None Currently or been in a relationship where the following occur: I choose not to answer THRIVE Score: 0 VIKKI-7 AMB Questionnaire VIKKI-7 Date VIKKI - 7 assessed: 10/19/23 Source: Developed by Drs. Abrahan Maravilla, Karma Sparks, Robert Fischer and colleagues, with an educational ilan from [employer]. Physical exam (Primary Care) Vital Signs: Last Vital Signs Pulse 49 L 03/07/25 10:44 Resp 14 03/07/25 10:44 BP 104/64 03/07/25 10:44 Pulse Ox 97 03/07/25 10:44 Oxygen Delivery Method Room Air 03/07/25 10:44 BMI result Body Mass Index 34.6 Tobacco/Smoking Status: Tobacco use Status Tobacco use date assessed 01/04/25 03/07/25 10:44 Patient Tobacco Use Status Never used Tobacco 03/07/25 10:44 e-Cigarette/Vaping Use Never Used 10/28/25 10:44 Thrive Assessment: Date of Thrive Assessment Date Thrive assessed 06/15/24 03/07/25 10:44 Currently or been in a relationship where the following occur: I choose not to answer Results AMB Hemoglobin A1c AMB Hemoglobin A1c 6.3 % Last Edit by Etelvina Drake CMA on 03/07/25 11:04 Coding Level of Care Code Est Pt Level 5 (49731) Diagnoses Hypertension, essential I10 Coronary artery disease I25.10 Diabetes E11.9 Hyperlipidemia E78.5 Bradycardia R00.1 CKD (chronic kidney disease) N18.9 Fatigue R53.83 Low back pain M54.50 Assessment & Plan Assessment & Plan (1) Hypertension, essential: Code(s): I10 - Essential (primary) hypertension Category: Medical Plan: Blood pressure is on lower side Heart rate is also a little bit low Will decrease metoprolol and change to long-acting formulation Metoprolol 50 mg b.i.d. to metoprolol ER 50 mg daily Continue lisinopril-hydrochlorothiazide and spironolactone as prescribed (2) Coronary artery disease: Code(s): I25.10 - Atherosclerotic heart disease of [place] coronary artery without angina pectoris Category: Medical Plan: Stable (3) Diabetes: Code(s): E11.9 - Type 2 diabetes mellitus without complications Category: Medical Plan: A1c 6.3% Good control. Goal is less than 7.0% Continue current medications (4) Hyperlipidemia: Code(s): E78.5 - Hyperlipidemia, unspecified Category: Medical Plan: LDL cholesterol had closer to goal of less than 70 at last check. Recently this has increased to 147. She had been taking rosuvastatin 40 mg daily and Zetia 10 mg daily (5) Bradycardia: Code(s): R00.1 - Bradycardia, unspecified Category: Medical Plan: Easing up on metoprolol see above (6) CKD (chronic kidney disease): Code(s): N18.9 - Chronic kidney disease, unspecified Category: Medical Plan: CKD stage 3b Creatinine and GFR have improved GFR is still low Encouraged good hydration Maintain appropriate blood pressure, blood sugar and lipids Avoid NSAIDs or use sparingly If this use to improve, will monitor. If worsening, will discuss referral to Nephrology (7) Fatigue: Code(s): R53.83 - Other fatigue Category: Medical Plan: Easing up on metoprolol which should allow heart rate to increase and blood pressure to increase slightly. Hopefully will improve fatigue Hydrate well (8) Low back pain: Code(s): M54.50 - Low back pain, unspecified Category: Medical Plan: Ongoing, chronic low back pain. Patient says that meloxicam is what works however renal function had been worsened so she has not had this in the past couple of months. We discussed that kidney function is improving however she should use this sparingly. Will give her 15 tabs per 30 days Hydrate well If renal function does not continue to improve, we may need to discontinue this altogether and consider other medications. Referring her back to pain management as well Plan She will return in 1 month to follow-up hypertension, bradycardia and renal function. Subsequently will follow-up on lipids Orders: Orders Comprehensive Met. Panel Today N18.9 - Chronic kidney disease, unspecified AMB Hemoglobin A1c Today E11.9 - Type 2 diabetes mellitus without complications Medications: New metoprolol succinate ER 50 mg PO DAILY 90 tabs 3RF 90 days Changed From meloxicam 15 mg PO DAILY 30 tabs 0RF To meloxicam 15 mg PO DAILY 15 tabs 0RF 30 days Discontinued metoprolol tartrate Discontinued Reason: Doctor's Order 50 mg PO BID 180 tabs 1RF spironolactone Discontinued Reason: Doctor's Order 25 mg PO DAILY 90 tabs 3RF
[2025-03-07 10:44] VITALS: BP 104/64; PULSE 49; RESP 14; O2SAT 97; BMI 34.6
--- OUTSIDE RECORDS SUMMARY | 2025-03-07 12:51 | XMS_ITS | Clinical Summary ---
Author Organization [facility] ity Address [address] [place] [address] Care Team Providers Care Materials Buyer Name Role Phone Unavailable Primary Care Provider [...]
== END 2025-03-07 11:36 | disposition home or self-care (01) ==
LOC: HO.HMCFM 10:26
PROVIDERS: PCP Family Medicine; Visit Provider Family Medicine
DX: E11.9 Type 2 diabetes mellitus without complications (principal)

== ENCOUNTER → 2025-03-07 10:25 | Outpatient (BNVA) | payer OTHER, SELFPAY | PROVIDERS: PCP Family Medicine; Visit Provider Family Medicine | DX: E11.22 Type 2 diabetes mellitus with diabetic chronic kidney disease (principal); I12.9 Hypertensive chronic kidney disease with stage 1 through stage 4 chronic kidney disease, or unspecified chronic kidney disease; N18.9 Chronic kidney disease, unspecified; E78.5 Hyperlipidemia, unspecified; I25.10 Atherosclerotic heart disease of native coronary artery without angina pectoris; R00.1 Bradycardia, unspecified; R53.83 Other fatigue; M54.50 Low back pain, unspecified | CPT/HCPCS: 83036; 99212 ==

== ENCOUNTER 2025-03-28 14:25 | Outpatient (AMB) | payer OTHER, SELFPAY ==
--- NOTE | 2025-03-28 14:27 | A.OFFVIS_ITS ---
Vital Signs 03/28/25 14:28 Height 5 ft Weight 176 lb 12.972 oz BMI 34.5 BP 120/64 Blood Pressure Location Lt brachial Position Sitting Pulse 55 Pulse Source Pulse Oximeter Intake Visit Reasons: 6m follow up Production Control Coordinator Required: Yes Production Control Coordinator Services: Production Control Coordinator Present Production Control Coordinator Name: nayeli alejandro [id number] Accompanied by: Self / Same As Patient Allergies No Known Allergies Allergy (Verified 03/28/25 14:31) Medication List - Last Reconciled 03/28/25 by Eliceo Stevenson NP aspirin (Aditi Low Dose Aspirin) 81 mg PO DAILY blood pressure test kit-medium As directed cholecalciferol (vitamin D3) 50 mcg PO DAILY 90 days clonidine HCl 0.1 mg PO BEDTIME clotrimazole 1% (Lotrimin AF (clotrimazole)) 1 appl topical TID PRN gabapentin 600 mg PO BEDTIME 90 days lisinopril-hydrochlorothiazide 20-12.5 mg 1 tab PO DAILY 90 days meloxicam 15 mg PO DAILY 30 days metoprolol succinate ER 50 mg PO DAILY 90 days omeprazole 20 mg PO QAM PRN rosuvastatin 40 mg PO DAILY 90 days trazodone 100 mg (2 x 50 mg) PO BEDTIME HPI Comments Details: This is a 59-year-old female patient coming in for a follow-up visit. Patient is Wolof-speaking and therefore cisco consultant was used throughout the visit. Patient with a history of hypertension, hyperlipidemia, obesity, and a prior abnormal stress test for which patient underwent a coronary CTA revealing mild coronary artery disease. In the past patient has had uncontrolled cholesterol levels for which patient was on atorvastatin however due to reporting problems with it patient was switched to rosuvastatin. Given her elevated levels, patient was also added on Zetia therapy. Recently patient underwent lab work showing elevated lipid profile. Patient's of the Zetia for unclear reasons. Matthew adams states that she may have developed constipation from it but her Farxiga was stopped and her issues resolved. Patient is otherwise denying any cardiac symptoms of exertional chest pain, shortness of breath, palpitations, dizziness, orthopnea, PND, leg edema, presyncope, or syncope. [facility] Medical History Abnormal stress test IFG (impaired fasting glucose) Tinea cruris Chest pain Depression Obesity Low back pain History of COVID-19 Osteoarthritis Anemia GERD (gastroesophageal reflux disease) HTN (hypertension) Surgical History Hx of section H/O colonoscopy History of hip replacement History of knee replacement Family History Father No problems noted. Father Cancer AD (Alzheimer's disease) Mother Breast cancer High blood pressure Maternal Aunt Stomach cancer Social History Household Members: Children and Other Housing: House Housing Other:: 2nd floor-2 family house Are you a primary home care consultant to a significant other at home: No Do you presently have visiting nurse or other home services: No Alcohol intake: current Alcohol intake frequency: holidays/special occasions only Patient Tobacco Use Status: Never used Tobacco e-Cigarette/Vaping Use: Never Used Second Hand Smoke Exposure: No Advance Directives Date on File: 02/24/20 service: No Current occupational status: disabled Current occupational exposures/hazards: No Cognitive needs: No Hearing needs: No Vision needs: No Review of Systems Const Denies daytime sleepiness, Denies difficulty sleeping, Denies snoring, Denies stops breathing during sleep and Denies weakness Card Denies chest pain, Denies rapid heart rate, Denies irregular heart rhythm, Denies claudication, Denies leg edema, Denies lightheadedness, Denies palpitations, Denies dyspnea, Reports dyspnea on exertion, Denies orthopnea, Denies paroxysmal nocturnal dyspnea and Denies slow heart rate Resp Denies cough, Denies dyspnea, Reports dyspnea on exertion and Denies snoring GI Reports no additional complaints, Denies hematochezia, Denies change in stool character and Denies dyspepsia Musc Denies abnormal gait, Denies muscle weakness and Denies numbness Neuro Denies abnormal gait, Denies numbness and Denies weakness Endo Denies palpitations Physical Exam Vital Signs: Last Vital Signs Pulse 55 03/28/25 14:28 BP 120/64 03/28/25 14:28 BMI result Body Mass Index 34.5 Const General: cooperative, healthy appearing, comfortable and no acute distress Orientation/consciousness: patient oriented x3 HEENT Head: Yes normal to inspection Neck Neck: Yes normal visual inspection, Yes trachea midline and Yes supple Chest Chest palpation & inspection: normal inspection of the chest Resp Effort & Inspection: normal respiratory effort Auscultation: clear to auscultation bilaterally, no crackles, no rales, no rhonchi and no wheezes Cardio Jugular venous distension: no JVD Palpation: normal PMI Rate: regular rate Rhythm: regular rhythm Heart sounds: S1 normal heart sound present, S2 normal heart sound present, no click, no gallops, no murmurs and no rubs Peripheral pulses: Peripheral pulses 2+ throughout GI Inspection: Yes normal to inspection Palpation (GI): Soft to palpation Auscultation: normal bowel sounds Skin General skin exam: no rashes or lesions noted Neuro General: patient oriented x3 Extrem General: Yes normal to inspection, No no pedal edema and No calf tenderness Psych Appearance: grossly normal Mental Status: mental status grossly normal Speech and movement: Normal speech and movement present Assessment & Plan Assessment & Plan (1) Coronary artery disease: Code(s): I25.10 - Atherosclerotic heart disease of [place] coronary artery without angina pectoris Category: Medical Plan: 06/02/2024-patient's myocardial perfusion imaging study showed lateral and inferior wall ischemia. Subsequently underwent coronary CTA. 06/21/2024-echo study showed normal EF 55-60% with impaired relaxation filling pattern. 08/11/2024-coronary CTA showed mixed plaque in the distal left main causing less than 25% stenosis, small calcified plaque in the proximal LAD less than 25% stenosis, small calcification in the proximal circumflex causing no stenosis, and 25-50% stenosis at the ostium with a calcified plaque. Incidentally it also showed suspicion for thymus hyperplasia for which, the report will be faxed over to her PCP's office to evaluate and discuss further. Patient's most LDL elevated again at 147. Patient is on high-dose rosuvastatin therapy. Continue this. Patient was also started on Zetia therapy which patient is no longer taking for unclear reasons. Advised to start taking this again. Patient understands that if her lipid profiles not within control then patient may need PCSK9 inhibitor. Patient verbalizes understanding. We will repeat lipid profile prior to next visit. Ideally, LDL goal less than 70. Advised on heart healthy diet, regular exercise, med compliance, losing weight, and aggressive management of vascular risk factors. (2) HTN (hypertension): Code(s): I10 - Essential (primary) hypertension Category: Medical Plan: Patient's blood pressure today is well-controlled. Continue with current re marymen. Advised continuing to monitor blood pressures at home and maintaining a log of it. Ideally, blood pressure goal less than 130/80. (3) Hyperlipidemia: Code(s): E78.5 - Hyperlipidemia, unspecified Category: Medical Plan: As above. We will follow up in 3 months. In the interim, patient will call the office with any concerns or change in symptoms. This note was generated using voice recognition software. While every effort has been made to ensure accuracy and proper cryptologic technician operator/analyst, there may be occasional errors that could affect the content or meaning of the described symptoms. Medications: New ezetimibe 10 mg PO DAILY 90 tabs 3RF Coding Level of Care Code Est Pt Level 4 (30234) Complex EM visit Add On G2211 Diagnoses Coronary artery disease I25.10 HTN (hypertension) I10 Hyperlipidemia E78.5 Time Spent (min) 34 Comment Time spent in reviewing the chart, test results, assessment, counseling and documentation.
[2025-03-28 14:28] VITALS: BP 120/64; PULSE 55; BMI 34.5
--- OUTSIDE RECORDS SUMMARY | 2025-03-29 11:26 | XMS_ITS | Clinical Summary ---
Author Organization [facility] ity Address [address] [place] [address] Care Team Providers Care Immigration Services Officer Name Role Phone Unavailable Primary Care Provider [...] Depression Screening 05/11/2024 COVID-19 Vaccine (1 - 2024-2 6 season) 2025 Influenza Vaccine (#1) 2025 RSV [...]
== END 2025-03-28 14:59 | disposition home or self-care (01) ==
LOC: HO.HCS 14:25
PROVIDERS: PCP Family Medicine
DX: I25.10 Atherosclerotic heart disease of native coronary artery without angina pectoris (principal); I10 Essential (primary) hypertension; E78.5 Hyperlipidemia, unspecified
CPT/HCPCS: 99214

== ENCOUNTER → 2025-03-28 14:25 | Outpatient (BNVA) | payer OTHER, SELFPAY | PROVIDERS: PCP Family Medicine | DX: I25.10 Atherosclerotic heart disease of native coronary artery without angina pectoris (principal); I10 Essential (primary) hypertension; E78.5 Hyperlipidemia, unspecified | CPT/HCPCS: 99212 ==